=== PATIENT | female | born 1940 | race Caucasian/White ===

== ENCOUNTER → 2017-08-04 15:14 | Outpatient (CLI) | payer MEDICARE, SELFPAY ==
--- NOTE | 2017-08-04 15:15 | RAD_ITS ---
STUDY: X-RAY - ABDOMEN/PELVIS REASON FOR EXAM: Female, 77 years old. Pain TECHNIQUE: AP supine and upright views of the abdomen and pelvis. COMPARISON: None. FINDINGS: Normal visualized lung bases. There is an unremarkable bowel gas pattern. There is no demonstrated free abdominal air. The visualized liver, spleen and kidneys are grossly normal in size and morphology. Normal soft tissue structures. There are diffuse degenerative changes of the visualized lumbar spine. Pelvic phleboliths. RAD/Abd Inc Decub and/or Erect IMPRESSION: Nonobstructive bowel gas pattern. Electronically Signed: Andres Tanner MD at 9:21 EDT Tel , Service support ,
== END ==
PROVIDERS: Family Provider Family Medicine; PCP Family Medicine; Visit Provider Family Medicine
DX: R14.0 Abdominal distension (gaseous) (principal)
CPT/HCPCS: 74019

== ENCOUNTER → 2017-09-01 14:07 | Outpatient (CLI) | payer SELFPAY ==
--- NOTE | 2017-09-01 14:18 | RAD_ITS ---
STUDY: X-RAY - RIGHT SHOULDER REASON FOR EXAM: Female, 77 years old. Right shoulder pain, strain during bowling TECHNIQUE: 4 view(s) of the shoulder. COMPARISON: None. FINDINGS: There is mild degenerative arthrosis of the glenohumeral articulation. There is degenerative arthrosis of the acromioclavicular joint without inferior osseous spur formation. Normal acromion. Normal humeral head and visualized proximal humerus. The soft tissue structures are unremarkable. Normal visualized pulmonary apex. RAD/Shoulder min 2 Views IMPRESSION: Mild degenerative changes. Electronically Signed: Carissa Connor MD at 3:54 EDT , Service support ,
== END ==
PROVIDERS: Family Provider Family Medicine; PCP Family Medicine; Visit Provider Family Medicine
DX: M19.011 Primary osteoarthritis, right shoulder (principal)
CPT/HCPCS: 73030

== ENCOUNTER → 2018-01-13 16:10 | Outpatient (CLI) | payer MEDICARE, SELFPAY | PROVIDERS: Family Provider Family Medicine; PCP Family Medicine; Visit Provider Family Medicine | DX: R53.83 Other fatigue (principal) | CPT/HCPCS: 36415 ==

== ENCOUNTER → 2018-02-17 17:28 | Outpatient (CLI) | payer SELFPAY ==
--- NOTE | 2018-02-17 17:38 | RAD_ITS ---
STUDY: X-RAY - RIGHT SHOULDER REASON FOR EXAM: Female, 78 years old. Right shoulder pain x2 weeks TECHNIQUE: 4 view(s) of the shoulder. COMPARISON: None. FINDINGS: Normal glenohumeral articulation. There is degenerative arthrosis of the acromioclavicular joint without inferior osseous spur formation. Normal acromion. Normal humeral head and visualized proximal humerus. The soft tissue structures are unremarkable. Normal visualized pulmonary apex. RAD/Shoulder min 2 Views IMPRESSION: Mild degenerative change of AC joint Electronically Signed: Frank James DO at 16:52 EDT Tel , Service support ,
== END ==
PROVIDERS: Family Provider Family Medicine; PCP Family Medicine; Referring Provider Family Medicine; Visit Provider Family Medicine
DX: M19.011 Primary osteoarthritis, right shoulder (principal)
CPT/HCPCS: 73030

== ENCOUNTER → 2018-03-28 16:56 | Outpatient (CLI) | payer MEDICARE, SELFPAY ==
--- NOTE | 2018-03-28 16:58 | RAD_ITS ---
STUDY: X-RAY - RIGHT KNEE REASON FOR EXAM: Female, 78 years old. Pain. TECHNIQUE: 4 view(s) of the knee. COMPARISON: None. FINDINGS: Normal visualized distal femur. Normal visualized proximal tibia and fibula. Normal proximal tibiofibular articulation. There is no demonstrated fracture. Normal medial femorotibial compartment. Normal lateral femorotibial compartment. Normal patellofemoral articulation. There is no demonstrated joint effusion. The soft tissue structures are unremarkable. RAD/Knee 4 or More Views IMPRESSION: Normal x-ray examination of the knee. Electronically Signed: Tee Medley MD at 19:04 EST , Service support ,
== END ==
PROVIDERS: Family Provider Family Medicine; PCP Family Medicine; Referring Provider Family Medicine; Visit Provider Family Medicine
DX: S83.91XA Sprain of unspecified site of right knee, initial encounter (principal)
CPT/HCPCS: 73564

== ENCOUNTER → 2018-04-07 16:54 | Outpatient (CLI) | payer MEDICARE, SELFPAY ==
--- NOTE | 2018-04-07 17:15 | MRI_ITS ---
STUDY: MRI RIGHT KNEE REASON FOR EXAM: Female, 78 years old. Right knee pain for 3 weeks. TECHNIQUE: Standardized fat and water weighted pulse sequences were obtained in all 3 orthogonal planes. COMPARISON: X-rays of the right knee dated March 28, 2018. FINDINGS: There is a complex tear posterior horn of the medial meniscus extending into the body. There is moderate thinning of the articular cartilage of the medial femorotibial compartment (coronal series 7 images 10-17). Normal hyaline cartilage of the medial femorotibial compartment. Normal medial femoral condyle and tibial plateau. Normal medial collateral ligamentous complex (MCL). Normal distal semimembranosus, gracilis and semitendinosus tendons. Normal lateral meniscus. There is mild thinning of the articular cartilage of the lateral femorotibial compartment (coronal series 7 images 12-18). Normal lateral femoral condyle and tibial plateau. Normal proximal tibiofibular articulation. Normal lateral collateral (fibular) ligament. Normal popliteus tendon. Normal biceps femoris tendon. Normal anterior cruciate ligament (ACL). Normal posterior cruciate ligament (PCL). Normal congruent patellofemoral articulation. There is moderate thinning of the articular cartilage of the patellofemoral compartment (axial series 3 images 7-14). Normal medial and lateral patellar retinaculum. Normal quadriceps tendon. Normal patellar tendon. Normal Hoffa's fat pad. There is a small joint effusion (axial series 3 image 12). The soft tissues are unremarkable. The otherwise visualized osseous structures are unremarkable. MRI/Lower Ext Joint Only (Routine) IMPRESSION: Complex tear of the posterior horn of the medial meniscus extending into the body. Moderate thinning of the articular cartilage of the medial and patellofemoral compartments. Mild thinning of the articular cartilage of the lateral femorotibial compartment. Small joint effusion. Electronically Signed: Hong Galo MD at 15:33 EST , Service support ,
== END ==
PROVIDERS: Family Provider Family Medicine; PCP Family Medicine; Referring Provider Family Medicine; Visit Provider Family Medicine
DX: M25.561 Pain in right knee (principal)
CPT/HCPCS: 73721

== ENCOUNTER → 2018-06-29 10:17 | Outpatient (CLI) | payer MEDICARE, SELFPAY ==
[2018-06-10 10:26] VITALS: BMI 23.8
--- NOTE | 2018-06-29 10:22 | RAD_ITS ---
STUDY: X-RAY CHEST REASON FOR EXAM: Female, 78 years old. Cough. TECHNIQUE: PA and lateral views of the chest. COMPARISON: Prior comparison studies are not available for review at this time. FINDINGS: There is mild hyperinflation of the lungs consistent with mild chronic obstructive lung disease (COPD). There is no demonstrated pleural abnormality. Normal size heart. Normal mediastinum and josh. Normal visualized pulmonary arteries. Normal visualized aortic arch and descending thoracic aorta. There are mild degenerative changes of the visualized thoracic spine. Normal visualized ribs, clavicles, and shoulders. There is no demonstrated abnormality of the visualized soft tissue structures of the upper abdomen. RAD/Chest PA and Lateral IMPRESSION: No active pulmonary disease. Electronically Signed: Butch Hager MD at 9:58 EST Tel , Service support ,
[2018-06-29 12:01] LABS: Absolute Lymphocyte Count 2.13 X10^3/ul (0.83-4.51); Absolute Neutrophil Count 3.1 X10^3/uL (2.0-7.7); Basophil# 0.04 X10^3/uL; Basophil% 0.6 % (0-1); Eosinophil# 0.36 X10^3/uL; Eosinophils% 5.7 % (0-5); Hematocrit 38.3 % (37-47); Hemoglobin 12.4 g/dl (12.0-15.0); Lymphocyte # 2.13 X10^3/ul (4.0); Lymphocyte % 33.8 % (19-41); Mean Corp Hgb Conc 32.4 g/gl (32-36); Mean Corpuscular Hgb 28.2 pg (27.0-32.0); Mean Platelet Vol. 9.6 fl (6.2-12.0); Monocyte# 0.69 X10^3/uL; Neutrophil # 3.07 X10^3/uL (2.7-7.7); Neutrophil % 48.7 % (47-70); POSITIVE COUNT NO; POSITIVE DIFFERENTIAL NO; POSITIVE MORPHOLOGY NO; Platelet Count 295 K/mm3 (150-450); RBC Distribution Width CV 13.5 % (11.6-14.6); RBC Distribution Width SD 43.4 fl (35.1-43.9); White Blood Count 6.3 K/mm3 (4.4-11.0)
== END ==
PROVIDERS: Family Provider Family Medicine; PCP Family Medicine; Referring Provider Family Medicine; Visit Provider Family Medicine
DX: R05 Cough (principal)
CPT/HCPCS: 36415; 71046; 85025

== ENCOUNTER → 2018-12-30 16:35 | Outpatient (CLI) | payer MEDICARE, SELFPAY ==
[2018-07-15 10:43] VITALS: BMI 23.8
--- NOTE | 2018-12-30 16:41 | RAD_ITS ---
STUDY: X-RAY - LUMBAR SPINE REASON FOR EXAM: Female, 78 years old. Pain, hip pain TECHNIQUE: 5 view(s) of the lumbar spine were obtained. COMPARISON: None FINDINGS: Normal lumbar lordosis. There is levoscoliosis of the lumbar spine. There is multilevel degenerative change. There is slight anterolisthesis at L4-L5. There is multilevel endplate spondylosis of the lumbar vertebrae. There is multi-level degenerative disc disease with multi-level disc space narrowing. There are phleboliths in the pelvis. RAD/L/S Spine Min 4 Views IMPRESSION: Degenerative changes of the lumbar spine. Levoscoliosis. No visualized evidence of acute loss of height or alignment. Electronically Signed: Khalida Collier MD at 18:38 EDT Tel , Service support ,
== END ==
PROVIDERS: Family Provider Family Medicine; PCP Family Medicine; Referring Provider Family Medicine; Visit Provider Family Medicine
DX: M43.16 Spondylolisthesis, lumbar region (principal); M51.36 Other intervertebral disc degeneration, lumbar region; M48.061 Spinal stenosis, lumbar region without neurogenic claudication
CPT/HCPCS: 72110

== ENCOUNTER → 2019-03-10 10:35 | Outpatient (CLI) | payer MEDICARE, SELFPAY ==
[2018-07-15 10:43] VITALS: BMI 23.8
[2019-03-10 13:10] LABS: Anion Gap 6 (5-15); BUN 21 mg/dL (7-18); BUN/Creat Ratio 17.5 RATIO (10-20); Chloride 103 mmol/L (98-107); Cholesterol 184 mg/dL (200); EST Glomerular Filtration Rate 46 mL/min (>60); Est Glom Filt Rate - Afr Amer 56 mL/min (>60); Glucose 92 mg/dL (74-106); High Density Lipoprotein 73 mg/dL; Potassium 3.8 mmol/L (3.5-5.1); Sodium Level 139 mmol/L (136-145); Triglycerides 89 mg/dL; Very Low Density Lipoprotein 18 mg/dL (5-40)
== END ==
PROVIDERS: Family Provider Family Medicine; PCP Family Medicine; Referring Provider Family Medicine; Visit Provider Family Medicine
DX: I10 Essential (primary) hypertension (principal)
CPT/HCPCS: 36415; 80048; 80061

== ENCOUNTER 2019-04-17 13:30 | Outpatient (RCR) | payer MEDICARE, SELFPAY ==
[2018-07-15 10:43] VITALS: BMI 23.8
--- NOTE | 2019-03-23 11:01 | HP.PTEVAL_ITS ---
Patient's Visit Information RADHA MALCOLM is a 79 year old F referred to Physical Therapy by Franklin Díaz MD with a diagnosis of BACK PAIN. Date of Evaluation: 03/23/19 Physical Therapist: Jen Chen PT, Cert MDT - Visit Plan Frequency: 2-3x /Week Duration: 4-6 Weeks Plan: AQUATIC THERAPY FOR PAIN RELEIF, POSTURE CORRECTION/STRENGTHENING, INSTRUCTION IN APPROPRIATE BODY MECHANICS AND ACTIVITY MODIFICATIONS. DLS STARTING WITH A NEUTRAL SPINE PROGRESSING ROM TOLERATED. EBONIE LE ROM, STRETCHING AND STRENGTHENING. HEP INSTRUCTION. - Subjective Findings: Work/Leisure: RETIRED. LIKES TO DANCE. DANCED AT [employer] LAST WEEK (AND KNEE WAS OK). ALSO LIKES TO PLAY TENNIS BUT HASN'T PLAYED THIS YEAR. LIKES TO WALK FOR EX BUT CAN'T NOW. Present symptoms: LOW BACK PAIN AND LEFT HIP PAIN. WHOLE RIGHT LEG HAS STARTED TO FEEL NUMB - A SENSATION THAT IS DIFFERENT. ACTUALLY HAVING SOME NUMBNESS AND TINGLING IN BOTH LE'S TO FEET. Present since: 6-8 MONTHS. Pain Scale: WORST 6/10, LEAST 0/10. Currently: 06/02. Commenced as a result of: NO APPARENT REASON. Symptoms at onset: LEFT LOW BACK. Worse: WALKING, STANDING, ANY KIND OF EX, CLEANING, VACUUMING, DUSTING. IF I AM NOT SITTING I AM IN PAIN. Better: SITTING. ALEVE. Disturbed sleep: NO. Previous history/Previous treatment: MIGHT HAVE HAD PT FOR RIGHT LOW BACK PAIN A LONG TIME AGO BUT OTHERWISE UNREMARKABLE. THIS EPISOD E HAD AN OLIVIA ABOUT A MONTH A GO THAT MIGHT HAVE HELPED BRIEFLY BUT IT DIDN'T LAST. NO BACK SURGERY. Coughing/sneezing/straining: NEGATIVE. Gait: PAIN LIMITED. NO AD'S. Difficulty initiating urinatin: NO. Accidents: NO. Unexplained weight loss: NO. Imaging: LUMBAR X-RAY - DDD PER PATIENT REPORT. PMH: OSTEOPOROSIS, ASTHMA, H/O RIGHT KNEE PAIN, ANXIETY, HTN, SLEEP MEDICINE. - Objective Sitting/Standing Posture: POOR. Lordosis: REDUCED. Active Correction of posture: WORSE. Other Observations: INDEP GAIT INTO PT WITH NO AD'S, MILD INCREASED TRUNK FLEXION AND DECREASED CADANCE. Motor deficit: EBONIE LE WEAKNESS: EBONIE HIPS 3+/5 AND PAIN LIMITED. RIGHT KNEE EXT 4-/5, KNEE FLEX 4/5, ANKLE 5/5. LEFT KNEE EXT 4-/5, KNEE FLEX 4/5, ANKLE 5/5. Sensory deficit: WITH TESTING TODAY THE LEFT LE LIGHT TOUCH SENSATION IS DECREASED COMPARED TO THE RIGHT. ROM deficit: EBONIE LE'S WFL. Reflexes: EBONIE LE'S 1/2 EBONIE. Dural Signs: POSITIVE EBONIE LE'S. Lumbar mvmt loss: flex - MOD. ext - VARSHA. R SG - VARSHA. L SG - VARSHA. PATIENT C/O INCREASED PAIN WITH LUMBAR ROM TESTING ALL PLANES ESPECIALLY RIGHT SG TESTING. Core strength: POOR. Palpation: MILD TENDERNESS WITH PALPATION OF THE LEFT PARASPINAL REGION. - Goals Goal 1:: DECREASE C/O LOW BACK AND LEFT HIP PAIN. Goal Time Frame: 4-6 Weeks Goal 2:: IMPROVE PERSONAL CARE, LIFTING, WALKING, STANDING, SOCIAL LIFE, TRAVEL AND HOMEMAKING FUNCTION. Goal Time Frame: 4-6 Weeks Goal 3:: INSTRUCT IN PROPHYLAXIS Goal Time Frame: 4-6 Weeks - Rehabilitation Potential Rehabilitation Potential: Fair - Anticipated Interventions Patient/Client Instruction: Educate patient on: Condition, Plan of Care, Risk Factors, Benefits of Fitness Program For the Purpose of:: To improve self management Therapeutic Exercise to Include: Strength training, Endurance training, Body mechanics, Postural training, Flexibilty training, In an aquatic setting, Dynamic Lumbar Stabilization For the Purpose of:: To decrease pain, To increase ROM, To improve muscle performance and motor function, To increase tolerance to activity/condition/position, To improve ability of physical actions for home/community/work/leisure, To improve gait and locomotor functions Thank you for the opportunity to evaluate your patient. For Medicare and Medicare HMO plans, please review the plan of care and approve it. It will need to be FAXED BACK to us at [phone] for Medicare purposes. For Medicare only, by signing this I certify the plan of care. Please let me know if there are questions or concerns regarding this plan of care. Physician Signature: Date:
--- NOTE | 2019-05-19 16:26 | HP.PTDCNRP_ITS ---
HP - Discharge Summary (1) - Patient Information RADHA MALCOLM was seen in my office for initial evaluation on 03/23/19. The following Plan of Care was established for this patient: Initial Frequency: 2-3x /Week Initial Duration: 4-6 Weeks - Anticipated Interventions Patient/Client Instruction: Educate patient on: Condition, Plan of Care, Risk Factors, Benefits of Fitness Program For the Purpose of:: To improve self management Therapeutic Exercise to Include: Strength training, Endurance training, Body mechanics, Postural training, Flexibilty training, In an aquatic setting, D ynamic Lumbar Stabilization For the Purpose of:: To decrease pain, To increase ROM, To improve muscle performance and motor function, To increase tolerance to activity/conditi on/position, To improve ability of physical actions for home/community/work/leisure, To improve gait and locomotor functions This patient was last seen in our office 04/17/19. Pertinent comments regarding their Physical therapy will appear below: This patient has not returned to Physical Therapy and is appropriate to return to MD for further follow-up as needed. At this point I will be discontinuing this patient from physical therapy. I would be happy to see this patient again in the future if found appropriate by the physician. Thank you! Jen Chen, PT, Cert MDT
== END 2019-04-17 19:00 | disposition home or self-care (01) ==
LOC: PT 13:30
PROVIDERS: Family Provider Family Medicine; PCP Family Medicine; Referring Provider Family Medicine; Visit Provider Family Medicine
DX: M54.9 Dorsalgia, unspecified (principal)
CPT/HCPCS: 97113; 97162; 97530

== ENCOUNTER → 2019-04-18 16:55 | Outpatient (CLI) | payer MEDICARE, SELFPAY ==
[2018-07-15 10:43] VITALS: BMI 23.8
--- NOTE | 2019-04-18 17:30 | MRI_ITS ---
STUDY: MRI LUMBAR SPINE WITHOUT CONTRAST REASON FOR EXAM: Female, 79 years old. Low back pain. Left hip and buttock pain. Right leg numbness and tingling. TECHNIQUE: Standardized fat and water weighted pulse sequences were obtained in the sagittal and axial planes. COMPARISON: Lumbar spine radiographs 12/30/2018. FINDINGS: No fracture or acute signal changes in the vertebrae, discs, or ligaments. Alignment unchanged with moderate to severe left scoliosis centered at L3, and mild right lateral offset of L1 on L2 and L2 on L3, and mild left lateral offset of L4 on L5 secondary to this scoliotic curvature. Mild, 2 mm, degenerative retrolisthesis of T12 on L1, L1 on L2, and L3 on L4, and mild to millimeter degenerative anterolisthesis of L4 and L5 also similar to previous. Conus terminates at the level of the L1 inferior endplate with normal contour and signal. The thecal sac terminates at the mid S2 level. Diffuse loss of disc space height, disc desiccation, with mild degenerative endplate signal changes and irregularity, most prominent at T12-L1, L1-2, and L3-4. The paraspinal soft tissues are unremarkable. At L1-2, diffuse disc bulge, moderate bilateral facet degeneration, and mild degenerative retrolisthesis cause only mild narrowing of the spinal canal and foramina with no evidence of nerve impingement. At L2-3, larger diffuse disc bulge, mild degenerative listhesis, scoliotic curvature and marked bilateral facet degeneration cause mild narrowing of the bilateral subarticular zones, moderate right and mild left foraminal narrowing. There is mild mass effect upon the exiting right L2 nerve root in the right foramen, and mild mass effect upon the traversing bilateral L3 nerve roots in the subarticular zones. At L3-4, diffuse disc bulge and moderate bilateral facet degeneration with underlying vertebral body and facet osteophytes combine with mild listhesis, and scoliotic curvature to cause mild narrowing of the spinal canal, moderate right and mild left foraminal narrowing. Osteophytes abut but do not compress the exiting right L3 nerve root in the right foramen. At L4-5, degenerative anterolisthesis with unroofing of the disc, scoliotic curvature, and marked bilateral facet degeneration cause focal moderate to severe spinal canal narrowing, particularly of the subarticular zones, with crowding of the cauda equina and moderate effacement of CSF. There is likely compression of the traversing bilateral L5 nerve roots in the subarticular zones. Only mild bilateral foraminal narrowing. At L5-S1, diffuse disc bulge with underlying osteophytes, and marked left and moderate right foraminal narrowing cause moderate right and high-grade left subarticular zone narrowing, with mass effect upon the traversing left greater than right S1 nerve roots. Mild right and moderate left foraminal narrowing. Disc and osteophytes mildly displace the exiting left L5 nerve root in the left foramen. The visualized sacrum is unremarkable. MRI/Spine Lumbar (Routine) IMPRESSION: The most likely etiology for radiculopathy is the L4-5 level where there is moderate to severe narrowing of the spinal canal and probable compression of the traversing bilateral L5 nerve roots in the subarticular zones. Prominent degenerative changes at other levels, described in detail above, with underlying moderate to severe left scoliosis centered at L3. Electronically Signed: Kirill Banuelos, at 3:42 EST Tel , Service support ,
== END ==
PROVIDERS: Family Provider Family Medicine; PCP Family Medicine; Referring Provider Anesthesiology Pain Medicine; Visit Provider Anesthesiology Pain Medicine
DX: M51.37 Other intervertebral disc degeneration, lumbosacral region (principal); M54.17 Radiculopathy, lumbosacral region
CPT/HCPCS: 72148

== ENCOUNTER → 2019-07-20 14:30 | Outpatient (CLI) | payer MEDICARE, SELFPAY ==
[2018-07-15 10:43] VITALS: BMI 23.8
[2019-07-20 16:06] LABS: Absolute Lymphocyte Count 2.35 X10^3/uL (0.83-4.51); Absolute Neutrophil Count 3.4 X10^3/uL (2.0-7.7); Basophil# 0.08 X10^3/uL; Basophil% 1.2 % (0-1); Eosinophil# 0.45 X10^3/uL; Eosinophils% 6.5 % (0-5); Hematocrit 38.3 % (37-47); Hemoglobin 12.2 g/dL (12.0-15.0); Lymphocyte # 2.35 X10^3/ul (4.0); Lymphocyte % 33.9 % (19-41); Mean Corp Hgb Conc 31.9 g/dL (32-36); Mean Corpuscular Hgb 27.6 pg (27.0-32.0); Mean Corpuscular Volume 86.7 fL (81-99); Mean Platelet Vol. 9.7 fl (6.2-12.0); Monocyte# 0.63 X10^3/uL; Monocyte% 9.1 % (0-10); NRBC Flagged by Analyzer 0 % (0-5); Platelet Count 339 K/mm3 (150-450); RBC Distribution Width CV 13.6 % (11.6-14.6); RBC Distribution Width SD 42.5 fl (35.1-43.9); Red Blood Count 4.42 M/mm3 (4.2-5.4); White Blood Count 6.9 K/mm3 (4.4-11.0)
[2019-07-20 16:35] LABS: Thyroid Stim Hormone (TSH) 1.71 uIU/mL (0.358-3.74)
[2019-07-24 16:08] LABS: Albumin 3.8 g/dL (2.9-4.4); Alpha-1-Globulins 0.2 g/dL (0.0-0.4); Alpha-2-Globulins 0.8 g/dL (0.4-1.0); Gamma Globulin 0.8 g/dL (0.4-1.8); Immunoglobulin A 274 mg/dL (64-422); Immunoglobulin G 965 mg/dL (700-1600); Immunoglobulin M 79 mg/dL (26-217); PROEL- TOTAL PROTEIN 6.9 g/dL (6.0-8.5)
== END ==
PROVIDERS: PCP Family Medicine; Referring Provider Family Medicine; Visit Provider Family Medicine
DX: R53.83 Other fatigue (principal)
CPT/HCPCS: 36415; 82784; 84165; 84443; 85025; 86334

== ENCOUNTER 2019-07-28 09:30 | Outpatient (RCR) | payer MEDICARE, SELFPAY ==
[2018-07-15 10:43] VITALS: BMI 23.8
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
== END 2019-07-28 19:00 | disposition home or self-care (01) ==
LOC: PT 09:30
PROVIDERS: PCP Family Medicine; Referring Provider Family Medicine; Visit Provider Family Medicine
DX: M54.9 Dorsalgia, unspecified (principal)
CPT/HCPCS: 97112; 97162

== ENCOUNTER → 2020-01-23 12:37 | Outpatient (CLI) | payer MEDICARE, SELFPAY ==
[2018-07-15 10:43] VITALS: BMI 23.8
[2020-01-23 15:52] LABS: Absolute Lymphocyte Count 2.77 X10^3/uL (0.83-4.51); Absolute Neutrophil Count 3.5 X10^3/uL (2.0-7.7); Basophil# 0.07 X10^3/uL; Basophil% 0.9 % (0-1); Eosinophils% 5.4 % (0-5); Hematocrit 37.2 % (37-47); Hemoglobin 12.2 g/dL (12.0-15.0); Lymphocyte # 2.77 X10^3/ul (4.0); Lymphocyte % 37.3 % (19-41); Mean Corp Hgb Conc 32.8 g/dL (32-36); Mean Corpuscular Hgb 29.6 pg (27.0-32.0); Mean Corpuscular Volume 90.3 fL (81-99); Monocyte# 0.69 X10^3/uL; Monocyte% 9.3 % (0-10); NRBC Flagged by Analyzer 0 % (0-5); Neutrophil # 3.47 X10^3/uL (2.7-7.7); Neutrophil % 46.7 % (47-70); Platelet Count 356 K/mm3 (150-450); RBC Distribution Width CV 14.3 % (11.6-14.6); RBC Distribution Width SD 46.1 fl (35.1-43.9); Red Blood Count 4.12 M/mm3 (4.2-5.4); White Blood Count 7.4 K/mm3 (4.4-11.0)
== END ==
PROVIDERS: PCP Family Medicine; Referring Provider Internal Medicine Pulmonary Disease; Visit Provider Internal Medicine Pulmonary Disease
DX: J45.909 Unspecified asthma, uncomplicated (principal)
CPT/HCPCS: 36415; 85025

== ENCOUNTER 2021-06-20 14:43 | Outpatient (CLI) | payer MEDICARE, BC, SELFPAY ==
[2021-06-20 17:51] LABS: Absolute Lymphocyte Count 2.23 X10^3/uL (0.83-4.51); Absolute Neutrophil Count 3.5 X10^3/uL (2.0-7.7); Basophil# 0.08 X10^3/uL; Basophil% 1.2 % (0-1); Eosinophil# 0.37 X10^3/uL; Eosinophils% 5.4 % (0-5); Hematocrit 34.8 % (37-47); Hemoglobin 11.3 g/dL (12.0-15.0); Lymphocyte # 2.23 X10^3/ul (0.83-4.51); Lymphocyte % 32.7 % (19-41); Mean Corp Hgb Conc 32.5 g/dL (32-36); Mean Corpuscular Hgb 27.4 pg (27.0-32.0); Mean Corpuscular Volume 84.5 fL (81-99); Monocyte# 0.65 X10^3/uL; Monocyte% 9.5 % (0-10); NRBC Flagged by Analyzer 0 % (0-5); Neutrophil # 3.49 X10^3/uL (2.7-7.7); Neutrophil % 51.1 % (47-70); Platelet Count 363 K/mm3 (150-450); RBC Distribution Width CV 14.6 % (11.6-14.6); Red Blood Count 4.12 M/mm3 (4.2-5.4); White Blood Count 6.8 K/mm3 (4.4-11.0)
[2021-06-20 18:15] LABS: Anion Gap 6 (5-15); BUN 18 mg/dL (7-18); BUN/Creat Ratio 14.1 RATIO (10-20); Calcium,Total 9.1 mg/dL (8.5-10.1); Chloride 106 mmol/L (98-107); Creatinine, Serum 1.28 mg/dL (0.55-1.02); EST Glomerular Filtration Rate 43 mL/min (>60); Est Glom Filt Rate - Afr Amer 52 mL/min (>60); Glucose 88 mg/dL (74-106); Potassium 3.6 mmol/L (3.5-5.1); Sodium Level 139 mmol/L (136-145); Thyroid Stim Hormone (TSH) 1.94 uIU/mL (0.358-3.74)
== END 2021-06-20 23:59 | disposition short-term general hospital (02) ==
PROVIDERS: PCP Family Medicine; Referring Provider Family Medicine; Visit Provider Family Medicine
DX: R42 Dizziness and giddiness (principal)
CPT/HCPCS: 36415; 80048; 84443; 85025

== ENCOUNTER 2022-03-12 14:35 | Inpatient (IN) | payer MEDICARE, BC, SELFPAY ==
[2022-03-12] VITALS (8 sets, daily range): BP systolic 107–168; BP diastolic 76–94; PULSE 83–104; RESP 15–22; TEMP 36.2–36.7; O2SAT 95–98; BMI 29.1; BMI 28.8
--- NOTE | 2022-03-12 15:11 | CT_ITS ---
STUDY: CT BRAIN WITHOUT CONTRAST REASON FOR EXAM: Female, 82 years old. Altered mental status, generalized weakness RADIATION DOSAGE (If Supplied By Facility): CTDIvol = ( 44.99 ) mGy, DLP = ( 812.98 ) mGycm TECHNIQUE: Transaxial CT imaging of the brain was performed without administration of intravenous contrast material. Individualized dose optimization techniques were used for this CT. COMPARISON: 2015 FINDINGS: Normal soft tissue structures. Normal calvarium. There is moderate cerebral atrophy with widening of the extra-axial spaces and ventricular dilatation. There are areas of decreased attenuation within the white matter tracts of the supratentorial brain, consistent with microvascular disease changes. There are small punctate calcifications of the basal ganglia which are seen in the aging brain as a normal variant. Normal brainstem. There is mild cerebellar atrophy. There is no intracranial hemorrhage. There are no findings of an acute ischemic infarction. Normal visualized paranasal sinuses. CT/Brain/Head without Contrast IMPRESSION: Chronic involutional changes of the brain. No acute hemorrhage Electronically Signed: Yusuf Helton MD at 16:05 EDT ,
--- NOTE | 2022-03-12 15:19 | EX.ED.DYSGE1 ---
HPI History of Present Illness Chief Complaint: Weakness Informant: patient and spouse/S.O. Narrative Narrative: Patient is an 82-year-old female with history of dementia, anxiety and hypertension presenting with lightheadedness and an episode of unsteady gait and slurred speech. states he came home and patient told him that she fell asleep while eating breakfast this morning. He noticed that he had she had a couple seconds of slurred speech and was stumbling. This was around 1 or 115. The symptoms since resolved. Patient notes that she has been more tired and just not feeling good today which is why she agreed to come to the emergency room. called their primary care doctor who and spoke to the on-call nurse who recommend they come to the ER. Patient denies any falls. She notes that she does not feel sure on her feet and feels lightheaded. She states she feels out of it. She notes she has been intermittently dizzy for weeks. She states is more of a room spinning sensation. states sometimes she seems like she is going to fall backwards but she has not fallen. For the past 2-week she is also been having heartburn every evening and patient states today she had an episode of chest pain in the center of her chest with no radiation. This lasted for 20 to 30 seconds. Patient denies any fever, chills, vision changes, shortness of breath, nausea, vomiting or urinary symptoms. She notes she did have diarrhea this morning. She denies any black or blood in her stool. No other complaints at this time. Patient was recently switched on to quetiapine to help with anxiety and sleep. This was 2 to 3 days ago. Before that she was on hydroxyzine. [facility] Medical History Anxiety Asthma Chronic pain Depression Hearing loss, left Hearing loss, right Hepatitis History of frequent urinary tract infections Hyperlipidemia Hypertension Non-smoker Osteoporosis Home Medications hydrochlorothiazide 12.5 mg capsule 12.5 mg PO DAILY BLOOD PRESSURE 06/10/18 [History Last Taken 03/12/22] acetaminophen 325 mg tablet 325 mg PO DAILY PRN PRN Pain 03/12/22 [History Last Taken 03/12/22] aspirin 325 mg tablet 325 mg PO DAILY PRN PRN Pain 03/12/22 [History Last Taken 03/12/22] bupropion HCl 300 mg 24 hr tablet, extended release 300 mg PO BID 03/12/22 [History Last Taken 03/12/22] [id number]-[id number]-nctq-minerals 27 mg-0.4 mg tablet 1 tab PO DAILY SUPPLEMENT 03/12/22 [History Last Taken 03/11/22] quetiapine 50 mg tablet 50 mg PO QHS SLEEP 03/12/22 [History Last Taken 03/11/22] Allergy/AdvReac Type Severity Reaction Status Date / Time alendronate sodium Allergy GI UPSET Verified 03/12/22 14:36 [From Fosamax] amoxicillin [From Augmentin] Allergy MADE MOUTH Verified 03/12/22 14:36 VERY TENDER clavulanic acid Allergy MADE MOUTH Verified 03/12/22 14:36 [From Augmentin] VERY TENDER escitalopram [From Lexapro] Allergy DECREASED Verified 03/12/22 14:36 LIBIDO, SEXUAL DYSFUNCTION fluoxetine [From Prozac] Allergy SEXUAL Verified 03/12/22 14:36 DYSFUNCTION latex Allergy Rash Verified 03/12/22 14:36 lisinopril Allergy COUGH Verified 03/12/22 14:36 paroxetine [From Paxil] Allergy NUMB Verified 03/12/22 14:36 venlafaxine [From Effexor] Allergy BLOATING, Verified 03/12/22 14:36 SEXUAL DYSFUNCTION Surgical History History of appendectomy History of hysterectomy History of tonsillectomy Social History Smoking Status: Never smoker ROS ROS ED Constitutional Constitutional ED: Denies chills or fever(s) Eyes Eyes: Denies blurry vision or change in vision ENT ENT ED: Denies ear pain, rhinorrhea or sore throat Cardiovascular Cardiovascular: Reports chest pain; Denies palpitations or racing heartbeat Respiratory/Chest Respiratory/Chest: Denies cough, dyspnea or dyspnea on exertion Gastrointestinal Gastrointestinal: Reports diarrhea; Denies abdominal pain, melena, nausea or vomiting Genitourinary Genitourinary ED: Denies dysuria or hematuria Musculoskeletal Musculoskeletal: Denies arthralgias or myalgias Integumentary Denies rash Neurologic Neurologic: Reports other Details: Slurred speech, unsteady gait ; Denies headache(s), paresthesias or weakness Psychiatric Psychiatric: Reports anxiety; Denies depression Hematologic/Lymphatic Hematologic/Lymphatic: Denies easy bleeding or easy bruising EXAM Physical Exam Const Vital Signs: 03/12/22 14:36 03/12/22 15:25 03/12/22 15:28 Temperature 97.2 F L Temperature Source Temporal Pulse Rate 104 H 92 Pulse Rate [Lying] Pulse Rate [Sitting (for 1 minute prior to obtaining)] Pulse Rate [Standing (for 1 minute prior to obtaining)] Respiratory Rate 15 19 H Respiratory Effort Normal Respiratory Pattern Normal Blood Pressure 107/79 155/80 H Blood Pressure [Lying] Blood Pressure [Sitting (for 1 minute prior to obtaining)] Blood Pressure [Standing (for 1 minute prior to obtaining)] Blood Pressure Mean 88 105 Blood Pressure Mean [Lying] Blood Pressure Mean [Sitting (for 1 minute prior to obtaining)] Blood Pressure Mean [Standing (for 1 minute prior to obtaining)] Pulse Ox 97 98 Oxygen Delivery Method Room Air Room Air 03/12/22 15:31 03/12/22 17:00 Temperature Temperature Source Pulse Rate 85 Pulse Rate [Lying] 87 Pulse Rate [Sitting (for 1 minute prior to obtaining)] 92 Pulse Rate [Standing (for 1 minute prior to obtaining)] 103 H Respiratory Rate 16 Respiratory Effort Respiratory Pattern Blood Pressure 147/81 H Blood Pressure [Lying] 125/78 H Blood Pressure [Sitting (for 1 minute prior to obtaining)] 125/78 H Blood Pressure [Standing (for 1 minute prior to obtaining)] 150/76 H Blood Pressure Mean 103 Blood Pressure Mean [Lying] 93 Blood Pressure Mean [Sitting (for 1 minute prior to obtaining)] 93 Blood Pressure Mean [Standing (for 1 minute prior to obtaining)] 100 Pulse Ox 95 Oxygen Delivery Method Room Air Positive well nourished and well developed General Appearance ED: well developed and NAD HEENT Reports moist mucous membranes Negative for trauma Eyes PERRL and EOMs intact bilaterally Eyes Narrative: No nystagmus appreciated Neck supple and no JVD Chest Wall inspection of chest normal and palpation of chest normal Resp normal respiratory effort and clear to auscultation bilaterally Cardio regular rate, regular rhythm and no murmurs GI normal to inspection, nondistended, normoactive bowel sounds and non-tender Back/Spine no CVA tenderness Extremity normal to inspection General Extremety ED: Negative for edema or tenderness General Extremity: Negative for edema Neuro CN's II-XII intact bilaterally and no sensory deficits noted Neuro Narrative: Oriented x2 Normal [id number]. No truncal ataxia appreciated. Motor Exam: strength 5/5 throughout Psych mental status grossly normal Skin no rashes or lesions noted and no wounds MDM MDM MDM Narrative Medical decision making narrative: Patient evaluated for lightheadedness, intermittent episodes of weakness, dizziness and an episode of stumbling/slurring her speech earlier today. Patient currently has no acute neurologic deficits. Her initial NIH is 1 however this is her baseline secondary to her dementia for level of consciousness. Patient's lab work does show anemia with a hemoglobin of 6.9. No signs of active bleeding and no blood on rectal exam. Her creatinine is 1.24 which is at her baseline. CT the brain does not show any acute process. Chest x-ray interpreted by myself as well as radiology does not show any acute process. Patient's urinalysis shows 500 leukoesterase but 0-5 white blood cells, rare bacteria and some epithelial cells. Given she does not have any urinary symptoms, fever or leukocytosis I do not think this is UTI. Culture sent but she is not treated at this time. Patient will be admitted for further evaluation of slurred speech including possible TIA as well as her acute anemia. She is agreeable to this plan of care. Given her acute anemia and possible bleeding even though I do not have a source that she is given 81 mg aspirin instead of a full dose aspirin. Lab Data Attestation: I reviewed the patient's lab results. Labs: Laboratory Results - last 24 hr 03/12/22 03/12/22 03/12/22 15:25 15:25 15:25 WBC 6.5 RBC 3.47 L Hgb 8.9 L Hct 28.6 L MCV 82.4 MCH 25.6 L MCHC 31.1 L RDW Std Deviation 48.8 H RDW Coeff of Roro 16.1 H Plt Count 360 MPV 9.1 Immature Gran % (Auto) 0.300 Neut % (Auto) 50.0 Lymph % (Auto) 32.7 [place] % (Auto) 9.6 Eos % (Auto) 6.5 H Baso % (Auto) 0.9 Absolute Neuts (auto) 3.2 Absolute Lymphs (auto) 2.11 Nucleated RBC % 0 PT 13.0 INR 1.0 Sodium 143 Potassium 3.5 Chloride 109 H Carbon Dioxide 27.0 Anion Gap 7 BUN 22 H Creatinine 1.24 H Estim Creat Clear Calc 35.50 Est GFR (MDRD) Af Amer 53 L Est GFR (MDRD) Non-Af 44 L BUN/Creatinine Ratio 17.7 Glucose 123 H Calcium 9.0 Total Bilirubin 0.20 AST 26 ALT 27 Alkaline Phosphatase 75 Troponin I High Sens 6 Total Protein 7.3 Albumin 3.5 Globulin 3.8 Albumin/Globulin Ratio 0.9 Lipase 247 Urine Color Urine Clarity Urine pH Ur Specific [place] Urine Protein Urine Glucose (UA) Urine Ketones Urine Occult Blood Urine Nitrite Urine Bilirubin Urine Urobilinogen Ur Leukocyte Esterase Urine RBC Urine WBC Ur Squamous Epith Cells Urine Bacteria Urine Mucus 03/12/22 16:20 WBC RBC Hgb Hct MCV MCH MCHC RDW Std Deviation RDW Coeff of [place]oro Plt Count MPV Immature Gran % (Auto) Neut % (Auto) Lymph % (Auto) [place] % (Auto) Eos % (Auto) Baso % (Auto) Absolute Neuts (auto) Absolute Lymphs (auto) Nucleated RBC % PT INR Sodium Potassium Chloride Carbon Dioxide Anion Gap BUN Creatinine Estim Creat Clear Calc Est GFR (MDRD) Af Amer Est GFR (MDRD) Non-Af BUN/Creatinine Ratio Glucose Calcium Total Bilirubin AST ALT Alkaline Phosphatase Troponin I High Sens Total Protein Albumin Globulin Albumin/Globulin Ratio Lipase Urine Color Straw Urine Clarity Clear Urine pH 7.0 Ur Specific [place] 1.010 Urine Protein Negative Urine Glucose (UA) Normal Urine Ketones Negative Urine Occult Blood 25 H Urine Nitrite Negative Urine Bilirubin Negative Urine Urobilinogen Normal Ur Leukocyte Esterase 500 H Urine RBC 0-5 SEEN Urine WBC 0-5 SEEN Ur Squamous Epith Cells 0-5 SEEN Urine Bacteria RARE Urine Mucus 0 SEEN Radiography Diagnostic Testing: Clinical Impression(s) from Imaging Studies Brain CT 03/12/22 15:11 IMPRESSION: Chronic involutional changes of the brain. No acute hemorrhage Electronically Signed: Yusuf Helton MD at 16:05 EDT Reading Location ID and State: [facility] / [place] , Service support , Chest X-Ray 03/12/22 15:50 IMPRESSION: No acute pulmonary process, no interval change Electronically Signed: Yusuf Helton MD at 16:04 EDT , Discharge Plan Dx/Rx/DC Orders Clinical Impression: TIA (transient ischemic attack), Anemia, Dizziness Disposition Disposition: Acute Care Hospital [facility] Discharge Date/Time: 03/12/22 19:12 NIHSS NIHSS 1a. Level of Consciousness: Alert; keenly responsive 1b. LOC Questions: Answers one question correctly. (Patient answered March onset of February for months. Has history of dementia and this is her baseline.) 1c. LOC Commands: Performs both tasks correctly. 2. Best Gaze: Normal 3. Visual: No visual loss 4. Facial Palsy: Normal symmetrical movements 5a. Left Arm: No drift; arm holds 90 (or 45) degrees for full 10 seconds 5b. Right Arm: No drift; arm holds 90 (or 45) degrees for full 10 seconds 6a. Left Leg: No drift; leg holds 30-degree position for full 5 seconds 6b. Right Leg: No drift; leg holds 30-degree position for full 5 seconds 7. Limb Ataxia: Absent 8. Sensory: Normal; no sensory loss 9. Best Language: No aphasia; normal 10. Dysarthria: Normal 11. Extinction and Inattention: No abnormality Total: 1
[2022-03-12 15:39] LABS: Absolute Lymphocyte Count 2.11 X10^3/uL (0.83-4.51); Absolute Neutrophil Count 3.2 X10^3/uL (2.0-7.7); Basophil# 0.06 X10^3/uL; Basophil% 0.9 % (0-1); Eosinophil# 0.42 X10^3/uL; Eosinophils% 6.5 % (0-5); Hematocrit 28.6 % (37-47); Hemoglobin 8.9 g/dL (12.0-15.0); Lymphocyte # 2.11 X10^3/ul (0.83-4.51); Lymphocyte % 32.7 % (19-41); Mean Corp Hgb Conc 31.1 g/dL (32-36); Mean Corpuscular Hgb 25.6 pg (27.0-32.0); Mean Corpuscular Volume 82.4 fL (81-99); Mean Platelet Vol. 9.1 fl (6.2-12.0); Monocyte# 0.62 X10^3/uL; Monocyte% 9.6 % (0-10); NRBC Flagged by Analyzer 0 % (0-5); Neutrophil # 3.22 X10^3/uL (2.7-7.7); Platelet Count 360 K/mm3 (150-450); RBC Distribution Width CV 16.1 % (11.6-14.6); RBC Distribution Width SD 48.8 fl (35.1-43.9); Red Blood Count 3.47 M/mm3 (4.2-5.4); White Blood Count 6.5 K/mm3 (4.4-11.0)
--- NOTE | 2022-03-12 15:50 | RAD_ITS ---
STUDY: X-RAY CHEST REASON FOR EXAM: Female, 82 years old. Atypical chest pain TECHNIQUE: PA and lateral views of the chest. COMPARISON: 06/29/18 FINDINGS: EKG leads overlie the chest The lungs are clear and expanded. There is no demonstrated pleural abnormality. Normal size heart. Normal mediastinum and josh. Normal visualized pulmonary arteries. Normal visualized aortic arch and descending thoracic aorta. There are diffuse degenerative changes of the visualized thoracic spine. Normal visualized ribs, clavicles, and shoulders. There is no demonstrated abnormality of the visualized soft tissue structures of the upper abdomen. RAD/Chest PA and Lateral IMPRESSION: No acute pulmonary process, no interval change Electronically Signed: Yusuf Helton MD at 16:04 EDT ,
[2022-03-12 15:59] LABS: ALB/GLOB Ratio 0.9 RATIO (0.9-2.4); AST(SGOT) 26 U/L (15-37); Alanine Aminotransfer ALT/SGPT 27 U/L (13-56); Albumin, Serum 3.5 g/dL (3.2-5.0); Alkaline Phosphatase 75 U/L (45-117); Anion Gap 7 (5-15); BUN 22 mg/dL (7-18); BUN/Creat Ratio 17.7 RATIO (10-20); Chloride 109 mmol/L (98-107); Creatinine, Serum 1.24 mg/dL (0.55-1.02); EST Glomerular Filtration Rate 44 mL/min (>60); Est Glom Filt Rate - Afr Amer 53 mL/min (>60); Globulin 3.8 g/dL (2.2-4.2); Glucose 123 mg/dL (74-106); Lipase 247 U/L (73-393); Potassium 3.5 mmol/L (3.5-5.1); Protein, Total 7.3 g/dL (6.4-8.2); Sodium Level 143 mmol/L (136-145); Troponin-I HS 6 pg/mL (3.0-54.0)
--- NOTE | 2022-03-12 16:30 | EKG12_ITS ---
Test Reason : HR Blood Pressure : / mmHG Vent. Rate : 085 BPM Atrial Rate : 085 BPM P-R Int : 164 ms QRS Dur : 070 ms QT Int : 378 ms P-R-T Axes : 040 006 013 degrees QTc Int : 449 ms Normal sinus rhythm Low voltage QRS Borderline ECG Confirmed by SAVAGE MCCAULEY, NATALY ([id number]), electronic news gathering editor TONE ESQUIVEL ([id number]) on 03/16/2022 9:45:16 AM Referred By: Confirmed By:NATALY WAN MD
[2022-03-12 16:41] LABS: Mucous, Urine 0 SEEN /hpf (<or=2+)
[2022-03-12 16:48] LABS: Color, Urine Straw (Yellow); Glucose, Dipstick Normal (Normal); Ketone-Dipstick Negative (Negative); Leukocyte Esterase-Dipstick 500 /ul (Negative); Nitrite-Dipstick Negative (Negative); Occult Blood-Urine 25 /ul (Negative); Protein-Dipstick Negative (Negative); Urine Bilirubin Dipstick Negative (Negative); Urine Clarity Clear (Clear); Urine Urobilinogen Normal (Normal)
[2022-03-12 16:58] LABS: Bacteria RARE /hpf (None Seen); Red Blood Cells-Urine 0-5 SEEN /hpf (0-5); Squamous Epithelial Cells - UA 0-5 SEEN /hpf (5-10); White Blood Cells 0-5 SEEN /hpf (0-5)
--- NOTE | 2022-03-12 18:13 | HP.PCM.HOS_ITS ---
HPI - General General Date of Admission: 03/12/22 Date of Service: 03/12/22 Chief Complaint: Slurred speech, dizziness and unsteady gait HPI Narrative RADHA MALCOLM, is a 82 F came to ED with her for slurred speech and episode of decreased responsiveness. As per the , she had dinner on the table and then she had garbled speech/slurred speech. At that time she also had short duration probably lasted in seconds to a minute of decreased responsiveness, lethargy and not responding appropriately. The patient did not pass out or loss of consciousness or seizure-like movement, confirmed from the patient's . Patient has chronic dizziness, vertigo/room spinning and an unsteady gait. She gets out of balance, rocking movement but does not favor any particular laterality. Patient has history of dementia and also poor sleep during night. She is also on quetiapine and bupropion. She does not sleep during daytime. Uses CPAP at night. In ED, twelve-lead EKG shows normal sinus rhythm, low voltage QRS complexes, 83 bpm. She denies burning micturition/increased frequency or urgency although she has history of UTI in the past. She is further admitted for work-up of TIA/stroke [facility] Medical History Anxiety Asthma Chronic pain Depression Hearing loss, left Hearing loss, right Hepatitis History of frequent urinary tract infections Hyperlipidemia Hypertension Non-smoker Osteoporosis Home Medications hydrochlorothiazide 12.5 mg capsule 12.5 mg PO DAILY BLOOD PRESSURE 06/10/18 [History Last Taken 03/12/22] acetaminophen 325 mg tablet 325 mg PO DAILY PRN PRN Pain 03/12/22 [History Last Taken 03/12/22] aspirin 325 mg tablet 325 mg PO DAILY PRN PRN Pain 03/12/22 [History Last Taken 03/12/22] bupropion HCl 300 mg 24 hr tablet, extended release 300 mg PO BID 03/12/22 [History Last Taken 03/12/22] jzbtvyandbwl-Mk-zqlq-minerals 27 mg-0.4 mg tablet 1 tab PO DAILY SUPPLEMENT 03/12/22 [History Last Taken 03/11/22] quetiapine 50 mg tablet 50 mg PO QHS SLEEP 03/12/22 [History Last Taken 03/11/22] Allergy/AdvReac Type Severity Reaction Status Date / Time alendronate sodium Allergy GI UPSET Verified 03/12/22 14:36 [From Fosamax] amoxicillin [From Augmentin] Allergy MADE MOUTH Verified 03/12/22 14:36 VERY TENDER clavulanic acid Allergy MADE MOUTH Verified 03/12/22 14:36 [From Augmentin] VERY TENDER escitalopram [From Lexapro] Allergy DECREASED Verified 03/12/22 14:36 LIBIDO, SEXUAL DYSFUNCTION fluoxetine [From Prozac] Allergy SEXUAL Verified 03/12/22 14:36 DYSFUNCTION latex Allergy Rash Verified 03/12/22 14:36 lisinopril Allergy COUGH Verified 03/12/22 14:36 paroxetine [From Paxil] Allergy NUMB Verified 03/12/22 14:36 venlafaxine [From Effexor] Allergy BLOATING, Verified 03/12/22 14:36 SEXUAL DYSFUNCTION Surgical History History of appendectomy History of hysterectomy History of tonsillectomy Social History Smoking Status: Never smoker ROS ROS Narrative 14 complete ROS unobtainable as patient has dementia mainly gathered from patient's at the bedside. Constitutional: Reports fatigue and weakness. No fever or recent URI symptoms HEENT: Reports systems reviewed and no addt'l complaints, except as documented Respiratory/Chest: Denies chest pain, shortness of breath at rest or with exertion Gastrointestinal: Denies coffee ground emesis, hematemesis or vomiting Genitourinary: Denies burning urination or new urinary tract symptoms Musculoskeletal: Mild joint pain and limited range of motion Neurologic: Described in detail in HPI. Denies seizure-like activity. Chronic gait instability/imbalance. No recent fall. Psychiatric: Dementia, anxiety and depression skin: No ulcer. No rash Endocrinology: Reports systems reviewed and no addt'l complaints, except as documented Hematologic/Lymphatic: Reports systems reviewed and no addt'l complaints, except as documented Rest 14 ROS are negative except as mentioned in HPI Vital Signs Vital Signs Vital Signs: 03/12/22 14:36 03/12/22 15:25 03/12/22 15:28 Temperature 97.2 F L Temperature Source Temporal Pulse Rate 104 H 92 Pulse Rate [Lying] Pulse Rate [Sitting (for 1 minute prior to obtaining)] Pulse Rate [Standing (for 1 minute prior to obtaining)] Respiratory Rate 15 19 H Respiratory Effort Normal Respiratory Pattern Normal Blood Pressure 107/79 155/80 H Blood Pressure [Lying] Blood Pressure [Sitting (for 1 minute prior to obtaining)] Blood Pressure [Standing (for 1 minute prior to obtaining)] Blood Pressure Mean 88 105 Blood Pressure Mean [Lying] Blood Pressure Mean [Sitting (for 1 minute prior to obtaining)] Blood Pressure Mean [Standing (for 1 minute prior to obtaining)] Pulse Ox 97 98 Oxygen Delivery Method Room Air Room Air 03/12/22 15:31 03/12/22 17:00 Temperature Temperature Source Pulse Rate 85 Pulse Rate [Lying] 87 Pulse Rate [Sitting (for 1 minute prior to obtaining)] 92 Pulse Rate [Standing (for 1 minute prior to obtaining)] 103 H Respiratory Rate 16 Respiratory Effort Respiratory Pattern Blood Pressure 147/81 H Blood Pressure [Lying] 125/78 H Blood Pressure [Sitting (for 1 minute prior to obtaining)] 125/78 H Blood Pressure [Standing (for 1 minute prior to obtaining)] 150/76 H Blood Pressure Mean 103 Blood Pressure Mean [Lying] 93 Blood Pressure Mean [Sitting (for 1 minute prior to obtaining)] 93 Blood Pressure Mean [Standing (for 1 minute prior to obtaining)] 100 Pulse Ox 95 Oxygen Delivery Method Room Air Weight Weight: 139 lb 5.314 oz Body Mass Index (BMI) 29.1 Physical Exam Narrative Physical exam General: Alert, Oriented x3, Cooperative HEENT: Bilateral hard of hearing. Atraumatic, PERRLA, EOMI, Normocephalic Oral: No Gingival or Mucosal Lesions/ Ulcerations Neck: Supple, No JVD, Negative Carotid Bruits Lungs: Air entry diminished in bilateral lung bases. No crepitation/rhonchi Cardiovascular: Sinus regular rhythm, low intensity S1 and S2, systolic murmur LLSB. Abdomen: Bowel Sounds Present, Soft, Non Tender, Non-Distended : No renal angle tenderness. No suprapubic tenderness. Extremities: No edema, Capillary Refill Less than 3 Seconds Skin: No rashes, No breakdown Musculoskeletal: Bilateral knee and hip joint arthritis. Muscle strength 4+/5 at major joints. No Tenderness to Palpation of Joints or Extremities Neurological: Cranial nerves II-XII grossly intact, DTR 2+/4, NIH 1 for missing the month Psych/Mental Status: Flat affect, dementia Results Lab / Micro Data Result Diagrams: 03/12/22 15:25 03/12/22 15:25 Labs: Laboratory Results - last 24 hr 03/12/22 15:25: WBC 6.5, RBC 3.47 L, Hgb 8.9 L, Hct 28.6 L, MCV 82.4, MCH 25.6 L , MCHC 31.1 L, RDW Std Deviation 48.8 H, RDW Coeff of Roro 16.1 H, Plt Count 360, MPV 9.1, Immature Gran % (Auto) 0.300, Neut % (Auto) 50.0, Lymph % (Auto) 32.7, [place] % (Auto) 9.6, Eos % (Auto) 6.5 H, Baso % (Auto) 0.9, Absolute Neuts (auto) 3.2, Absolute Lymphs (auto) 2.11, Nucleated RBC % 0 03/12/22 15:25: PT 13.0, INR 1.0 03/12/22 15:25: Sodium 143, Potassium 3.5, Chloride 109 H, Carbon Dioxide 27.0, Anion Gap 7, BUN 22 H, Creatinine 1.24 H, Estim Creat Clear Calc 35.50, Est GFR (MDRD) Af Amer 53 L, Est GFR (MDRD) Non-Af 44 L, BUN/Creatinine Ratio 17.7, Glucose 123 H, Calcium 9.0, Total Bilirubin 0.20, AST 26, ALT 27, Alkaline Phosphatase 75, Troponin I High Sens 6, Total Protein 7.3, Albumin 3.5, Globulin 3.8, Albumin/Globulin Ratio 0.9, Lipase 247 03/12/22 16:20: Urine Color Straw, Urine Clarity Clear, Urine pH 7.0, Ur Specific [place] 1.010, Urine Protein Negative, Urine Glucose (UA) Normal, Urine Ketones Negative, Urine Occult Blood 25 H, Urine Nitrite Negative, Urine Bilirubin Negative, Urine Urobilinogen Normal, Ur Leukocyte Esterase 500 H, Urine RBC 0-5 SEEN, Urine WBC 0-5 SEEN, Ur Squamous Epith Cells 0-5 SEEN, Urine Bacteria RARE, Urine Mucus 0 SEEN Micro: Microbiology 03/12/22 17:23 Stool Stool Occult Blood (FERNANDO) - Final Radiology Impression Brain CT 03/12/22 15:11 IMPRESSION: Chronic involutional changes of the brain. No acute hemorrhage Electronically Signed: Yusuf Helton MD at 16:05 EDT , Chest X-Ray 03/12/22 15:50 IMPRESSION: No acute pulmonary process, no interval change Electronically Signed: Yusuf Helton MD at 16:04 EDT , Assessment & Plan Assessment/Plan (1) TIA (transient ischemic attack): PLAN: Plan This 82-year-old female with history of dementia, hypertension dyslipidemia is being admitted for work-up for TIA after she had brief spell of garbled/slurred speech and decreased responsiveness: 1. Possible TIA or side effect of antidepressant/tranquilizer: Patient is being admitted in PCU on monitored telemetry bed. MRI brain, MRA head and neck ordered. Patient is on TIA protocol with BP, glucose monitoring and NIH stroke scale. NIH score is only 1 for missing the month but patient has dementia and depression. PT OT and speech evaluation ordered. Patient started on baby aspirin and high intensity statin 2. Acute anemia on baseline anemia of chronic disease: Patient baseline hemoglobin runs between 11-12 g%. H&H 8.9/28.6%. Platelet count 360,000. Stool for occult blood negative. Monitor CBC daily. 3. Hypertension: Blood pressure in low normal range. Follow permissive hypertension protocol for TIA/stroke. Patient on HCTZ, does decreased to half. Hold for systolic BP less than 115 with 4. Chronic intermittent asthma: Patient not on inhaler at home. Albuterol as needed every 6 hourly or shortness of breath/wheezing 5. Anxiety, depression and dementia: Patient on high dose of bupropion 300 mg extended release twice daily and quetiapine 50 mg daily. Bupropion dose decreased. Hold antidepressant for lethargy/sedation. 6. Obstructive sleep apnea: Patient uses CPAP at home. CPAP ordered. Other comorbidities include complex tear of medial meniscus of right knee, primary osteoarthritis of right knee, chronic gait instability/disequilibrium, osteoporosis: Home medication reconciliation done Living will/advanced directive/end of life care: Patient does have living will or advanced directive. Her is power of workers compensation defense attorney for health. After discussion of benefits/risks procedures involved with full code, DNR CC arrest and DNR CC, the patient and her are not very clear at this time but will discuss later on. He said we will put full code for now. Patient does want artificial life support including intubation, tube feed, ventilator and/chest compression, central venous catheter, vasopressor and DC shock if needed Total time spent in [id number] encounter in discussion of advanced directive 16 minutes. Microbiology Past 72 Hours 03/12/22 17:23 Stool Stool Occult Blood (FERNANDO) - Final Laboratory Results 03/12/22 15:25: WBC 6.5, RBC 3.47 L, Hgb 8.9 L, Hct 28.6 L, MCV 82.4, MCH 25.6 L , MCHC 31.1 L, RDW Std Deviation 48.8 H, RDW Coeff of Roro 16.1 H, Plt Count 360, MPV 9.1, Immature Gran % (Auto) 0.300, Neut % (Auto) 50.0, Lymph % (Auto) 32.7, [place] % (Auto) 9.6, Eos % (Auto) 6.5 H, Baso % (Auto) 0.9, Absolute Neuts (auto) 3.2, Absolute Lymphs (auto) 2.11, Nucleated RBC % 0 03/12/22 15:25: PT 13.0, INR 1.0 03/12/22 15:25: Sodium 143, Potassium 3.5, Chloride 109 H, Carbon Dioxide 27.0, Anion Gap 7, BUN 22 H, Creatinine 1.24 H, Estim Creat Clear Calc 35.50, Est GFR (MDRD) Af Amer 53 L, Est GFR (MDRD) Non-Af 44 L, BUN/Creatinine Ratio 17.7, Glucose 123 H, Calcium 9.0, Total Bilirubin 0.20, AST 26, ALT 27, Alkaline Phosphatase 75, Troponin I High Sens 6, Total Protein 7.3, Albumin 3.5, Globulin 3.8, Albumin/Globulin Ratio 0.9, Lipase 247 03/12/22 16:20: Urine Color Straw, Urine Clarity Clear, Urine pH 7.0, Ur Specific [place] 1.010, Urine Protein Negative, Urine Glucose (UA) Normal, Urine Ketones Negative, Urine Occult Blood 25 H, Urine Nitrite Negative, Urine Bilirubin Negative, Urine Urobilinogen Normal, Ur Leukocyte Esterase 500 H, Urine RBC 0-5 SEEN, Urine WBC 0-5 SEEN, Ur Squamous Epith Cells 0-5 SEEN, Urine Bacteria RARE, Urine Mucus 0 SEEN 03/12/22 18:13: Magnesium 2.2 Clinical Impression(s) from Imaging Studies Brain CT 03/12/22 15:11 IMPRESSION: Chronic involutional changes of the brain. No acute hemorrhage Chest X-Ray 03/12/22 15:50 IMPRESSION: No acute pulmonary process, no interval change Electronically Signed: Yusuf Helton MD at 16:04 EDT , Charges/Coding Visit Charges OBSV E&M: 60516 Initial observation care L3 Procedures Hospitalists Procedures: 14011 Advncd Care Plan 30 Min
[2022-03-12] MEDS: Aspirin 81 MG TAB.CHEW PO (18:48)
--- NOTE | 2022-03-12 18:56 | ECHOD_ITS ---
Reason For Study: TIA/CVA Procedure This was a 2D Doppler, Color Flow transthoracic echocardiogram. Exam performed portable in patient room. Left Ventricle Normal left ventricle. The estimated ejection fraction is 55-60 %. Right Ventricle Normal right ventricle. Normal systolic function. Atria Normal left atrium. Normal right atrium. Mitral Valve The mitral valve is structurally normal. No prolapse or stenosis seen. Trivial mitral valve insufficiency. Tricuspid Valve Normal tricuspid valve. Aortic Valve Normal aortic valve. Mild (1+) aortic valve insufficiency. Pulmonic Valve The pulmonic valve is not well visualized. Great Vessels Normal aortic root. Pericardium/Pleural No pericardial effusion. Medication Performed a rapid injection of agitated mix of 9 cc saline and 1cc air to assess for atrial septal defect. MMode/2D Measurements & Calculations LVIDd: 3.5 cm IVSd: 0.87 cm Ao root diam: 3.2 cm LVIDs: 2.3 cm LVPWd: 0.79 cm RVDd: 2.8 cm FS: 35.9 % LAV(MOD-bp): 25.9 ml LVAd ap4: 20.9 cm2 SV(MOD-sp4): 29.7 ml LAV(MOD-bp) Indexed: 16.5 ml/m2 LVLd ap4: 7.0 cm LAV(MOD-sp2): 24.9 ml EDV(MOD-sp4): 52.1 ml LAV(MOD-sp4): 27.6 ml EDV(sp4-el): 52.9 ml LVAs ap4: 12.7 cm2 LVLs ap4: 6.3 cm ESV(MOD-sp4): 22.4 ml ESV(sp4-el): 21.9 ml EF(MOD-sp4): 57.1 % EF(sp4-el): 58.7 % SV(sp4-el): 31.0 ml LA A4 area: 12.5 cm2 LA dimension(2D): 3.0 cm RA A4 area: 11.1 cm2 Doppler Measurements & Calculations MV E max silvino: 94.8 cm/sec Lat Peak E' Silvino: 9.2 cm/sec Med Peak E' Silvino: 6.2 cm/sec MV A max silvino: 114.4 cm/sec E/E' lat: 10.3 E/E' med: 15.2 MV E/A: 0.83 Ao V2 max: 164.3 cm/sec AI max silvino: 381.0 cm/sec PA V2 max: 71.2 cm/sec Ao max P.8 mmHg AI max P.1 mmHg AI dec slope: 303.0 cm/sec2 AI P1/2t: 368.3 msec TR max silvino: 216.9 cm/sec TR max P.9 mmHg ECHO/Echo Complete Interpretation Summary The estimated ejection fraction is 55-60 %. Normal LV systolic function Trivial MR Mild AI Positive buble study Ordering Physician: Jd Woodard Referring Physician: Franklin Díaz Performed By: Theresa Aiken RDCS
[2022-03-12 19:06] LABS: Magnesium 2.2 mg/dL (1.6-2.6)
[2022-03-12] MEDS: 0.9% Normal Saline 1,000 ML 75 ML IV (21:40)
[2022-03-12] MEDS: Atorvastatin Calcium 80 MG Tablet PO (21:41)
[2022-03-12] MEDS: Heparin Injection (Vial) 5,000 UNIT/ML VIAL 5000 UNIT SC (21:41)
[2022-03-12] MEDS: QUEtiapine 25 MG Tablet 50 MG PO (22:35)
[2022-03-12] MEDS: buPROPion (XL) 150 MG TABLET.XL PO (22:36)
--- NOTE | 2022-03-12 22:47 | CPS ---
Pt.'s home CPAP unit is set up and ready for use [facility].
[2022-03-13] VITALS (16 sets, daily range): BP systolic 118–147; BP diastolic 68–94; PULSE 79–98; RESP 14–18; TEMP 36.4–37.3; O2SAT 93–98; BMI 28.8
[2022-03-13 01:05] LABS: Bedside Glucose 116 mg/dL (74-106)
[2022-03-13 06:04] LABS: Absolute Lymphocyte Count 1.86 X10^3/uL (0.83-4.51); Absolute Neutrophil Count 2.9 X10^3/uL (2.0-7.7); Basophil# 0.07 X10^3/uL; Basophil% 1.2 % (0-1); Eosinophil# 0.45 X10^3/uL; Eosinophils% 7.7 % (0-5); Hematocrit 26.4 % (37-47); Hemoglobin 8.3 g/dL (12.0-15.0); Lymphocyte # 1.86 X10^3/ul (0.83-4.51); Lymphocyte % 31.6 % (19-41); Mean Corp Hgb Conc 31.4 g/dL (32-36); Mean Corpuscular Hgb 26.3 pg (27.0-32.0); Mean Corpuscular Volume 83.5 fL (81-99); Mean Platelet Vol. 9.2 fl (6.2-12.0); Monocyte% 10.2 % (0-10); NRBC Flagged by Analyzer 0 % (0-5); Neutrophil # 2.88 X10^3/uL (2.7-7.7); Platelet Count 318 K/mm3 (150-450); RBC Distribution Width CV 15.9 % (11.6-14.6); Red Blood Count 3.16 M/mm3 (4.2-5.4); White Blood Count 5.9 K/mm3 (4.4-11.0)
[2022-03-13 06:38] LABS: Anion Gap 6 (5-15); BUN 18 mg/dL (7-18); BUN/Creat Ratio 15.1 RATIO (10-20); Calcium,Total 8.3 mg/dL (8.5-10.1); Chloride 112 mmol/L (98-107); Cholesterol 146 mg/dL (200); Creatinine, Serum 1.19 mg/dL (0.55-1.02); EST Glomerular Filtration Rate 46 mL/min (>60); Est Glom Filt Rate - Afr Amer 56 mL/min (>60); Estimated Creatinine Clearance 36.58 ml/min; Glucose 95 mg/dL (74-106); High Density Lipoprotein 52 mg/dL; Potassium 3.5 mmol/L (3.5-5.1); Sodium Level 143 mmol/L (136-145); Triglycerides 135 mg/dL; Very Low Density Lipoprotein 27 mg/dL (5-40)
[2022-03-13 07:05] LABS: Bedside Glucose 93 mg/dL (74-106)
[2022-03-13] MEDS: Heparin Injection (Vial) 5,000 UNIT/ML VIAL 5000 UNIT SC ×2 (08:37→22:10)
[2022-03-13] MEDS: Aspirin 81 MG TAB.CHEW PO (08:37)
[2022-03-13] MEDS: buPROPion (XL) 150 MG TABLET.XL PO (08:37)
--- NOTE | 2022-03-13 08:50 | PCM.PN.HOSP ---
Subjective Subjective DOS: 03/13/2022 CC: Follow-up TIA work-up Patient reports that she is feeling somewhat better. Denies chest pain or shortness of breath. He is very anxious about the event however. Bowel and bladder okay, appetite is improving. Denies lightheadedness at this time. Objective Data Objective Data Vital Signs: Vital Signs Temp Pulse Resp BP Pulse Ox O2 Del Method FiO2 98.1 F 89 16 137/72 H 95 Room Air 21 03/13/22 08:30 03/13/22 08:30 03/13/22 08:30 03/13/22 08:30 03/13/22 08:30 03/13/22 08:30 03/12/22 22:43 Oxygen Delivery Method Room Air Weight: 62.5 kg Body Mass Index (BMI) 28.8 Intake & Output: Intake and Output for Last 24 Hours 03/11/22 03/12/22 03/13/22 23:59 23:59 23:59 Intake Total 500 / 500 Balance 500 / 500 Lab / Micro Data Result Diagrams: 03/13/22 05:47 03/13/22 05:47 Labs: Laboratory Results - last 24 hr 03/12/22 15:25: WBC 6.5, RBC 3.47 L, Hgb 8.9 L, Hct 28.6 L, MCV 82.4, MCH 25.6 L, MCHC 31.1 L, RDW Std Deviation 48.8 H, RDW Coeff of Roro 16.1 H, Plt Count 360, MPV 9.1, Immature Gran % (Auto) 0.300, Neut % (Auto) 50.0, Lymph % (Auto) 32.7, [place] % (Auto) 9.6, Eos % (Auto) 6.5 H, Baso % (Auto) 0.9, Absolute Neuts (auto) 3.2, Absolute Lymphs (auto) 2.11, Nucleated RBC % 0 03/12/22 15:25: PT 13.0, INR 1.0 03/12/22 15:25: Sodium 143, Potassium 3.5, Chloride 109 H, Carbon Dioxide 27.0, Anion Gap 7, BUN 22 H, Creatinine 1.24 H, Estim Creat Clear Calc 35.50, Est GFR (MDRD) Af Amer 53 L, Est GFR (MDRD) Non-Af 44 L, BUN/Creatinine Ratio 17.7, Glucose 123 H, Calcium 9.0, Total Bilirubin 0.20, AST 26, ALT 27, Alkaline Phosphatase 75, Troponin I High Sens 6, Total Protein 7.3, Albumin 3.5, Globulin 3.8, Albumin/Globulin Ratio 0.9, Lipase 247 03/12/22 16:20: Urine Color Straw, Urine Clarity Clear, Urine pH 7.0, Ur Specific [place] 1.010, Urine Protein Negative, Urine Glucose (UA) Normal, Urine Ketones Negative, Urine Occult Blood 25 H, Urine Nitrite Negative, Urine Bilirubin Negative, Urine Urobilinogen Normal, Ur Leukocyte Esterase 500 H, Urine RBC 0-5 SEEN, Urine WBC 0-5 SEEN, Ur Squamous Epith Cells 0-5 SEEN, Urine Bacteria RARE, Urine Mucus 0 SEEN 03/12/22 18:13: Magnesium 2.2 03/13/22 00:40: POC Glucose 116 H 03/13/22 05:47: WBC 5.9, RBC 3.16 L, Hgb 8.3 L, Hct 26.4 L, MCV 83.5, MCH 26.3 L, MCHC 31.4 L, RDW Std Deviation 49.0 H, RDW Coeff of Roro 15.9 H, Plt Count 318, MPV 9.2, Immature Gran % (Auto) 0.300, Neut % (Auto) 49.0, Lymph % (Auto) 31.6, [place] % (Auto) 10.2 H, Eos % (Auto) 7.7 H, Baso % (Auto) 1.2 H, Absolute Neuts (auto) 2.9, Absolute Lymphs (auto) 1.86, Nucleated RBC % 0 03/13/22 05:47: Sodium 143, Potassium 3.5, Chloride 112 H, Carbon Dioxide 25.0, Anion Gap 6, BUN 18, Creatinine 1.19 H, Estim Creat Clear Calc 36.58, Est GFR (MDRD) Af Amer 56 L, Est GFR (MDRD) Non-Af 46 L, BUN/Creatinine Ratio 15.1, Glucose 95, Calcium 8.3 L, Triglycerides 135, Cholesterol 146, LDL Cholesterol 67, VLDL Cholesterol 27, HDL Cholesterol 52 03/13/22 06:14: POC Glucose 93 Micro: Microbiology 03/12/22 17:23 Stool Stool Occult Blood (FERNANDO) - Final Radiography Diagnostic Testing: Radiology Impression Brain CT 03/12/22 15:11 IMPRESSION: Chronic involutional changes of the brain. No acute hemorrhage Electronically Signed: Yusuf Helton MD at 16:05 EDT , Chest X-Ray 03/12/22 15:50 IMPRESSION: No acute pulmonary process, no interval change Electronically Signed: Yusuf Helton MD at 16:04 EDT , Physical Exam Const alert and no apparent distress HEENT head/scalp atraumatic Eyes PERRL Neck supple Resp normal respiratory effort and clear to auscultation bilaterally Cardio regular rate and regular rhythm GI non-distended Extremity Extremity Narrative: Moving all EXTR days Neuro Neuro Narrative: No focal deficits appreciated Assessment & Plan Assessment/Plan (1) Dizziness: (2) Anemia: (3) Medication reaction: PLAN: Plan Ms. Troy is an 82-year-old female with a history of depression, hard of hearing, hypertension, osteoporosis, and asthma who presented 03/12/2022. Discussed with her and at bedside. They reported that at breakfast she began to fall asleep. He came in and try to move her to the chair and she continued to start to nod off and he had difficulty understanding her words during that time. Denies that is happened before. Denies any chest pain or shortness of breath or palpitations at that time, does remember this event. Remember specifically being tired at the time with no dizziness was reported when I spoke with her and her . Does note that over the past few months she has had some dizziness when standing and will start to fall back. Has not had any syncopal episodes. Does note that 4 days ago her hydroxyzine was switched to Seroquel to help with her sleep. This has worsened symptoms. No seizure-like activity was reported #Altered mental status?resolved There was conversing for TIA history head and mumbled words when being moved to the chair Upon further discussion with her and her she reported that she was very tired while she was sitting eating her oatmeal and began falling asleep/nodding off. When he tried to move her to the chair she said she is still partially asleep and was mumbling MRI/MRA without acute findings It was then revealed that she was on hydroxyzine but this was changed to Seroquel 4 days ago, which can cause excessive sedation as well as worsened dizziness and orthostatic hypotension Will hold Seroquel, discussed extensively with her and her There was concern for TIA/stroke symptoms on admission?but given MRI/MRA without acute findings as well as how she and her described her symptoms today in light of starting a new medicine, Seroquel, feel that is the most likely culprit. Did have echo as part of the work-up which seems to have instantly noted a positive bubble study Given that this event Is suspected to be attributed to the above, may just need outpatient follow-up or monitoring by PCP #Presyncope She has been having episodes that sound to be presyncopal over the past several months She will get dizzy when going from sitting to standing and will take second to get her bearings Consistently associated with this change in position Has been getting fluids here and has not had any of these episodes Physical therapy does not think she needs any acute needs Orthostatic vital signs negative here however symptoms are primarily early in the morning and she is also been hydrated. Does report she rarely ever drinks water and stays chronically dehydrated. Have counseled her on this #Acute anemia On further evaluation, hemoglobin was 11.3 06/20/2021 and prior to that had been normal. Now she is 8.3 Concerned that this could be contributing to her dizziness and episodes Is occult blood is negative, will get iron panel and B12 as well as TSH and reticulocyte count Did have microscopic hematuria on her UA as well, will obtain kidney ultrasound #Chronic intermittent asthma Albuterol as needed #Anxiety, depression, dementia Home med list reports Wellbutrin 300 mg p.o. twice daily, this is over the FDA recommended dose, clarified that she is taking Wellbutrin 300 daily Was taking Seroquel nightly, concerned that this may have led to presentation, will discontinue this Discussed this with her and her as well as melatonin and also taking Wellbutrin early in the morning as this could affect sleep as well Will start melatonin scheduled for sleep #DVT ppx: Heparin subcu Yulissa Rodriguez MD Charges/Coding Visit Charges OBSV E&M: 83138 Subsequent observation care L2
[2022-03-13] MEDS: LORazepam 2 MG/ML Syringe 1 MG IV (08:54)
--- NOTE | 2022-03-13 09:00 | MRI_ITS ---
STUDY: MRI BRAIN WITHOUT CONTRAST REASON FOR EXAM: Female, 82 years old. TIA TECHNIQUE: Standardized multiplanar fat and water weighted pulse sequences were obtained. COMPARISON: CT head without contrast 03/12/2022. FINDINGS: Normal size of the ventricles and extra-axial spaces for the patient''s age. T2 FLAIR hyperintensity foci in the periventricular white matter, more in the forceps major and forceps minor. These are chronic white matter ischemic changes. No mass effects and no midline shift. Normal bilateral basal ganglia. Normal thalami. There is no extra-axial fluid accumulation. Normal flow voids within the major intracranial circulation suggesting patency by spin echo criteria. Normal sella turcica, pituitary gland, infundibular stalk, optic chiasm and hypothalamus. Normal tectal plate and pineal gland. Normal midbrain, yanet and medulla. Normal cerebellum. Normal basal cisterns. Normal bilateral temporal bones. Normal bilateral internal auditory canals. No demonstrated orbital abnormality, within the constraints of a routine brain study. Normal visualized paranasal sinuses. Normal calvarium and skull base. Normal visualized soft tissue structures. Normal visualized upper cervical spine. MRI/Brain without Contrast IMPRESSION: 1. No MRI evidence of acute or subacute ischemic infarct or remote cortical based ischemic infarct. 2. Chronic white matter ischemic changes in both cerebral hemispheres. Electronically Signed: Sivakumar Jennings MD at 10:54 EDT ,
--- NOTE | 2022-03-13 09:00 | MRI_ITS ---
STUDY: MRA NECK WITHOUT CONTRAST REASON FOR EXAM: Female, 82 years old. TIA TECHNIQUE: Source images were obtained, MIPs were performed. The study was performed unenhanced. COMPARISON: None. FINDINGS: RIGHT CAROTID ARTERIES: Normal right common carotid artery (CCA). Normal right carotid bulb. Normal origin of the right internal carotid (ICA) artery without a hemodynamically significant stenosis. Normal visualized cervical portion of the right internal carotid artery. Normal origin of the right external carotid artery (ECA). LEFT CAROTID ARTERIES: Normal left common carotid artery (CCA). Normal left carotid bulb. Normal origin of the left internal carotid (ICA) artery without a hemodynamically significant stenosis. Normal visualized cervical portion of the left internal carotid artery. Normal origin of the left external carotid artery (ECA). VERTEBRAL ARTERIES: Normal antegrade flow within the bilateral codominant vertebral artery without a hemodynamically significant stenosis. MRI/MRA Neck without Contrast IMPRESSION: Normal bilateral cervical carotid and vertebral arteries. Electronically Signed: Sivakumar Jennings MD at 10:56 EDT ,
--- NOTE | 2022-03-13 09:00 | MRI_ITS ---
STUDY: MRA OF THE HEAD WITHOUT CONTRAST REASON FOR EXAM: Female, 82 years old. TIA TECHNIQUE: 3-D [id number] (TOF) imaging was performed with MIPs. The study was performed unenhanced. COMPARISON: None. FINDINGS: Normal bilateral petrous carotid arteries. Normal right cavernous carotid artery with a normal supraclinoid bifurcation. Normal left cavernous carotid artery with a normal supraclinoid bifurcation. Normal right A1 segment of the anterior cerebral artery. Normal left A1 segment of the anterior cerebral artery. Normal intact anterior communicating artery (ACOM). Normal bilateral A2 segments of the anterior cerebral arteries. Normal right M1 and M2 segments of the middle cerebral arteries, with a normal M1 bifurcation. Normal left M1 and M2 segments of the middle cerebral arteries, with a normal M1 bifurcation. Normal right posterior communicating artery (PCOM). Normal left posterior communicating artery (PCOM). Normal bilateral codominant vertebral arteries. Normal basilar artery with a normal basilar bifurcation. The visualized bilateral superior cerebellar (SCA) arteries are normal. Normal bilateral P1, P2 and visualized P3 segments of the posterior cerebral arteries. There is no demonstrated aneurysm of the [place]. There is no major vessel occlusion or hemodynamically significant stenosis. MRI/MRA Head ONLY without Contrast IMPRESSION: Normal MRA of the head Electronically Signed: Sivakumar Jennings MD at 10:55 EDT ,
[2022-03-13 11:35] LABS: Bedside Glucose 104 mg/dL (74-106)
--- NOTE | 2022-03-13 13:07 | CASEMGMT ---
Per therapy notes, pt needs no further therapy at discharge. SStaten RN CM
--- NOTE | 2022-03-13 15:14 | CASEMGMT ---
SW did not complete a PHQ 9 as patient did not have a Stroke. Tanisha OVERTON
--- NOTE | 2022-03-13 16:30 | US_ITS ---
STUDY: RENAL ULTRASOUND - COMPLETE REASON FOR EXAM: Female, 82 years old. Microscopic hematuria. TECHNIQUE: Ultrasound evaluation of the kidneys was performed with real-time and static garber-scale imaging. COMPARISON: None. FINDINGS: RIGHT KIDNEY: Normal location of the right kidney, which is low normal in size. The right kidney measures 8.2 cm. There is a normal cortex of the right kidney. The renal cortex measures 2.9 cm. There is no right renal mass or cyst. There are no right renal calculi. There is no right hydronephrosis. DISTAL RIGHT URETER: There is non-visualization of the distal right ureter. There is no demonstrated right ureterovesical junction calculus. There is no demonstrated right ureteral jet. LEFT KIDNEY: Normal location of the left kidney, which is low normal in size. The left kidney measures 9 cm. There is a normal cortex of the left kidney. The renal cortex measures 0 point cm. There is no left renal mass or cyst. There are no left renal calculi. There is no left hydronephrosis. DISTAL LEFT URETER: There is non-visualization of the distal left ureter. There is no demonstrated left ureterovesical junction calculus. There is a visualized left ureteral jet. BLADDER: The distended urinary bladder has a volume of 32 ml. There is a normal wall thickness of the distended urinary bladder. There is no demonstrated mass within the urinary bladder. There are no demonstrated bladder calculi. US/Kidney and Bladder IMPRESSION: Normal ultrasound of the kidneys and urinary bladder. Electronically Signed: Dinh Kessler DO at 19:15 EDT ,
[2022-03-13 16:43] LABS: Platelet Count 343 K/mm3 (150-450); RET-HE 26.4 pg (30-35)
[2022-03-13 17:15] LABS: Iron 34 ug/dL (50-170); Iron Binding Capacity,Total 380 ug/dL (250-450); Thyroid Stim Hormone (TSH) 2.14 uIU/mL (0.358-3.74)
[2022-03-13] MEDS: Atorvastatin Calcium 80 MG Tablet PO (22:10)
[2022-03-13] MEDS: MELATONIN 10 MG TABLET PO (22:10)
[2022-03-13] MEDS: Senna/Docusate Sodium 1 Tablet 2 TABLET PO (22:11)
[2022-03-14] VITALS (7 sets, daily range): BP systolic 124–132; BP diastolic 66–85; PULSE 80–91; RESP 14–17; TEMP 36.3–36.6; O2SAT 95–99; BMI 28.8
[2022-03-14 06:49] LABS: Absolute Lymphocyte Count 2.35 X10^3/uL (0.83-4.51); Absolute Neutrophil Count 3.4 X10^3/uL (2.0-7.7); Basophil# 0.09 X10^3/uL; Basophil% 1.3 % (0-1); Eosinophil# 0.51 X10^3/uL; Eosinophils% 7.2 % (0-5); Hematocrit 25.9 % (37-47); Hemoglobin 8.1 g/dL (12.0-15.0); Lymphocyte # 2.35 X10^3/ul (0.83-4.51); Lymphocyte % 33.3 % (19-41); Mean Corp Hgb Conc 31.3 g/dL (32-36); Mean Corpuscular Hgb 25.6 pg (27.0-32.0); Mean Platelet Vol. 9.8 fl (6.2-12.0); Monocyte# 0.72 X10^3/uL; Monocyte% 10.2 % (0-10); NRBC Flagged by Analyzer 0 % (0-5); Neutrophil # 3.37 X10^3/uL (2.7-7.7); Neutrophil % 47.7 % (47-70); Platelet Count 369 K/mm3 (150-450); RBC Distribution Width CV 16.1 % (11.6-14.6); RBC Distribution Width SD 48.7 fl (35.1-43.9); Red Blood Count 3.16 M/mm3 (4.2-5.4); White Blood Count 7.1 K/mm3 (4.4-11.0)
[2022-03-14 07:34] LABS: ALB/GLOB Ratio 0.9 RATIO (0.9-2.4); AST(SGOT) 17 U/L (15-37); Alanine Aminotransfer ALT/SGPT 21 U/L (13-56); Alkaline Phosphatase 61 U/L (45-117); Anion Gap 7 (5-15); BUN 19 mg/dL (7-18); BUN/Creat Ratio 17.1 RATIO (10-20); Calcium,Total 8.6 mg/dL (8.5-10.1); Chloride 110 mmol/L (98-107); Creatinine, Serum 1.11 mg/dL (0.55-1.02); EST Glomerular Filtration Rate 50 mL/min (>60); Est Glom Filt Rate - Afr Amer 61 mL/min (>60); Estimated Creatinine Clearance 39.22 ml/min; Ferritin 9 ng/mL (8-252); Globulin 3.2 g/dL (2.2-4.2); Glucose 92 mg/dL (74-106); Potassium 3.8 mmol/L (3.5-5.1); Protein, Total 6.2 g/dL (6.4-8.2); Sodium Level 142 mmol/L (136-145)
[2022-03-14] MEDS: Aspirin 81 MG TAB.CHEW PO (08:41)
[2022-03-14] MEDS: Heparin Injection (Vial) 5,000 UNIT/ML VIAL 5000 UNIT SC (08:41)
[2022-03-14] MEDS: buPROPion (XL) 300 MG TABLET.XL PO (08:43)
--- NOTE | 2022-03-14 09:00 | CASEMGMT ---
Social Work As per admitting layout artist, pt has LW and POA, however is not able to bring in the documents. As per layout artist, Darren Troy is pt's POA. CALLIE Guan
[2022-03-14] MEDS: hydroCHLOROthiazide 6.25mg TAB 6.25 MG PO (09:03)
--- NOTE | 2022-03-14 10:10 | CASEMGMT ---
AMANDA ZAPATA assessment: Face to Face with patient for initial transition planning/care coordination assessment. AMANDA ZAPATA introduced self and role at [facility] [place], pt voices understanding and consents to assessment. Pt is sitting on side of bed in no distress on room air. Pt is A/Ox4 and answers questions appropriately.? Care providers, pharmacy,?and demographics verified. ? Presentation: Pt arrives to ED w/ general weakness, momentary slurred speech and dizziness, sx's resolved Admitting dx: TIA, anemia PCP: Bre Specialists: None Preferred [facility]acy: [facility] Insurance: MCR/[place] Prescription Benefit:?yes Living Will/HPOA: Pt does have LW/HPOA and is aware that they are not on file at [facility] [place]. Pt states her , Darren Troy, is HPOA. LNOK: Darren Troy, /HPOA; Trae Higuera, friend Living Arrangements: Pt lives with in 1 story home and states no concerns at home. Pt is independent with ADL's. Transportation: Pt drives self or drives and states no transportation concerns. DME/HHC: Pt has a WW at home and states no need for any further DME. Pt states no hx of HHC or SNF. Pt states no concerns with going home at time of discharge. Pt is retired. Pt does not smoke cigarettes and occasionally drinks ETOH. Pt states no further concerns/needs. CM to follow for any further discharge planning/needs. Advised pt to ask for CM if any further questions/concerns/needs arise, voices understanding. Pt Goal: Home ? Plan: Home [place] AMANDA ZAPATA
--- NOTE | 2022-03-14 11:03 | DCINST_ITS ---
Discharge Instructions Diet Discharge Diet: No restrictions Activity Discharge Activity: Return to Normal Activity Follow Up Care Test Results: Test results from this visit will be discussed in further detail at your follow- up appointment, if applicable. Discharge Plan Admission Admit Date/Time: 03/13/22 15:44 Primary Reason for Your Visit: Mumbled speech, falling asleep while eating oatmeal Attending Provider: Yulissa Rodriguez Primary Care Provider: Franklin Díaz Consulting Providers: Jd Woodard Instructions Patient Instructions: Anemia Additional Instructions / Restrictions: *Please take this with you to your next doctors appointment* ? The symptoms you described were consistent with adverse effects from medication. It is important to stop the Seroquel, and also over the hydroxyzine. Though some people tolerate these medications well, and seems to have been the cause of your symptoms. ? You were found to have anemia, low hemoglobin, but there was no blood found in your stool and no evidence of a significant active bleed. Your iron was slightly low, you will be discharged on iron supplementation. You are also noted to have very small microscopic amount of red blood cells in your urine. This will need further followed up closely with your primary care physician, an ultrasound of your kidneys was on remarkable. ? He also indicated that you drink water very sparsely throughout the day, discussed ways to improve this and remain hydrated. ? We discussed taking her Wellbutrin around 8 or 9:00 in the morning to help improve sleep at bedtime, also advised taking 10 mg of melatonin at bedtime and taking this consistently, melatonin can be obtained [id number] at a pharmacy. ?During your admission there were no acute strokes found. ? During your work-up for stroke, a picture of your heart was obtained, which did show that there is a small communication between your atria. Given that there was no stroke, this was found incidentally. This is fairly common and occurs in about 25 to 30% of the population. However it is importantly have close follow-up with your primary care physician to assess for further monitoring or referral, though often not needed when they are asymptomatic. ?You will be sent out on a baby aspirin. -Please call your primary care provider's office upon discharge to schedule a hospital follow up within 1 week. -For any concerning signs or symptoms please call 911 or proceed to the nearest emergency department Discharge Orders/Prescriptions Prescriptions: New aspirin 81 mg Tablet,Chewable 81 mg PO BREAKFAST 30 Days Qty: 30 0RF ferrous sulfate 325 mg (65 mg iron) tablet,delayed release (DR/EC) 325 mg PO DAILY Qty: 30 0RF Continued hydrochlorothiazide 12.5 mg capsule 12.5 mg PO DAILY vundicedulyy-Of-tzhx-minerals 27-0.4 mg Tablet 1 tab PO DAILY bupropion HCl 300 mg tablet extended release 24 hr 300 mg PO DAILY Label Comments: Take one tablet by mouth once daily Discontinued acetaminophen 325 mg Tablet 325 mg PO DAILY PRN PRN (Reason: Pain) aspirin 325 mg Tablet 325 mg PO DAILY PRN PRN (Reason: Pain) quetiapine 50 mg tablet 50 mg PO QHS Label Comments: Take 1 tablet by mouth at bedtime Referrals / Follow Up: Franklin Díaz MD [Primary Care Provider] - Within 1 Week Disposition Disposition (needs filled in before D/C Order can be placed): Home, Self Care
--- NOTE | 2022-03-14 11:08 | DS.PCM_ITS ---
Providers Date of Admission: 03/13/22 Date of Discharge: 03/14/22 Primary Care Physician: Dr. Franklin Díaz MD Reason For Visit: Altered mental status Diagnosis Discharge Diagnosis (1) Dizziness: Status: Acute Code(s): R42 - Dizziness and giddiness (2) Anemia: Status: Acute Code(s): D64.9 - Anemia, unspecified (3) Medication reaction: Status: Acute Code(s): T50.905A - Adverse effect of unspecified drugs, medicaments and biological substances, initial encounter Plan #Altered mental status?resolved #Presyncope #Acute anemia #Chronic intermittent asthma #Anxiety, depression, dementia Medications at Discharge Home Medications hydrochlorothiazide 12.5 mg capsule 12.5 mg PO DAILY BLOOD PRESSURE 06/10/18 bupropion HCl 300 mg 24 hr tablet, extended release 300 mg PO DAILY 03/12/22 iawnkasrzpkq-Vp-muxj-minerals 27 mg-0.4 mg tablet 1 tab PO DAILY SUPPLEMENT 03/12/22 aspirin 81 mg chewable tablet 81 mg PO BREAKFAST 30 days #30 tabs 03/14/22 ferrous sulfate 325 mg (65 mg iron) tablet,delayed release 325 mg PO DAILY #30 tabs 03/14/22 Hospital Course Procedures 2-D Echocardiogram Summary of Care Provided Minutes Spent on Discharge: 33 Hospital Course: Ms. Troy is an 82-year-old female with a history of depression, hard of hearing, hypertension, osteoporosis, and asthma who presented 03/12/2022. Discussed with her and at bedside. They reported that at breakfast she began to fall asleep. He came in and try to move her to the chair and she continued to start to nod off and he had difficulty understanding her words during that time. Denies that is happened before. Denies any chest pain or shortness of breath or palpitations at that time, does remember this event. Remember specifically being tired at the time with no dizziness was reported when I spoke with her and her . Does note that over the past few months she has had some dizziness when standing and will start to fall back. Has not had any syncopal episodes. Does note that 4 days ago her hydroxyzine was switched to Seroquel to help with her sleep. This has worsened symptoms. No seizure-like activity was reported. Initially came in as a TIA work-up but after discussing with her and her seems to been more medication related as she was actively falling asleep and was mumbling because she kept nodding off. Given the timeline of Seroquel starting this is likely the culprit. Additionally complained of dizziness upon standing over the past several months which correlates with starting of hydroxyzine for her sleep. This was always worse in the morning as was her status in the morning after the Seroquel as nakul hairston Discussed that some people tend to be more sensitive these medications and that this may be the case for her. MRI/MRA showed no acute stroke. Orthostats were negative. She was monitored on telemetry and echo obtained. Echo read was after MRI/MRA and ruled out stroke, but echo did show positive bubble study. Given lack of other findings another explanation this seems to have been an incidental finding. Advised to follow-up with her primary care physician regarding this, may need monitored versus routine follow-up. Additionally she was noted to be anemic, required if there could be blood loss that worsen clinical presentation. Was fairly consistent hemoglobin trended over several d ays, it is certainly lower than baseline. Iron studies revealed low iron, replacement given. Additionally FOBT was negative her blood, did have several red blood cells in her urine, kidney ultrasound was unremarkable. May need further follow-up outpatient, advised to discuss this with her primary care physician. On day of discharge she was doing well, and had no further episodes of dizziness or feeling overly sedated, no observed oversedation. Discussed extensively with both her and her . Discharge instructions provided to patient as below: *Please take this with you to your next doctors appointment* ? The symptoms you described were consistent with adverse effects from medication.? It is important to stop the Seroquel, and also over the hydroxyzine.? Though some people tolerate these medications well, and seems to have been the cause of your symptoms. ? You were found to have anemia, low hemoglobin, but there was no blood found in your stool and no evidence of a significant active bleed.? Your iron was slightly low, you will be discharged on iron supplementation.? You are also noted to have very small microscopic amount of red blood cells in your urine.? This will need further followed up closely with your primary care physician, an ultrasound of your kidneys was on remarkable. ? He also indicated that you drink water very sparsely throughout the day, discussed ways to improve this and remain hydrated. ? We discussed taking her Wellbutrin around 8 or 9:00 in the morning to help improve sleep at bedtime, also advised taking 10 mg of melatonin at bedtime and taking this consistently, melatonin can be obtained [id number] at a [facility]. ?During your admission there were no acute strokes found. ? During your work-up for stroke, a picture of your heart was obtained, which did show that there is a small communication between your atria.? Given that there was no stroke, this was found incidentally.? This is fairly common and oc curs in about 25 to 30% of the population.? However it is importantly have close follow-up with your primary care physician to assess for further monitoring or referral, though often not needed when they are asymptomatic. ?You will be sent out on a baby aspirin. -Please call your primary care provider's office upon discharge to schedule a hospital follow up within 1 week. -For any concerning signs or symptoms please call 911 or proceed to the nearest emergency department Physical Exam Const alert and no apparent distress HEENT head/scalp atraumatic Eyes PERRL Neck supple Resp normal respiratory effort and clear to auscultation bilaterally Cardio regular rate and regular rhythm GI non-distended Extremity Extremity Narrative: Moving all EXTR days Neuro Neuro Narrative: No focal deficits appreciated Weight / BMI Weight Weight: 62.5 kg Body Mass Index (BMI) 28.8 ABG / Lab / Microbiology Data Result Diagrams: 03/14/22 05:12 03/14/22 05:12 Laboratory: Laboratory Results - last 24 hr 03/13/22 05:47: Iron 34 L, TIBC 380, Folate 11.90, TSH 2.14 03/13/22 05:47: Retic Count 1.90 H, Immature Retic Fraction 18.80 H, Retic Hgb Equivalent 26.4 L 03/13/22 11:08: POC Glucose 104 03/14/22 05:12: Sodium 142, Potassium 3.8, Chloride 110 H, Carbon Dioxide 25.0, Anion Gap 7, BUN 19 H, Creatinine 1.11 H, Estim Creat Clear Calc 39.22, Est GFR (MDRD) Af Amer 61, Est GFR (MDRD) Non-Af 50 L, BUN/Creatinine Ratio 17.1, Glucose 92, Calcium 8.6, Ferritin 9, Total Bilirubin 0.30, AST 17, ALT 21, Alkaline Phosphatase 61, Total Protein 6.2 L, Albumin 3.0 L, Globulin 3.2, Albumin/Globulin Ratio 0.9 03/14/22 05:12: WBC 7.1, RBC 3.16 L, Hgb 8.1 L, Hct 25.9 L, MCV 82.0, MCH 25.6 L , MCHC 31.3 L, RDW Std Deviation 48.7 H, RDW Coeff of Roro 16.1 H, Plt Count 369, MPV 9.8, Immature Gran % (Auto) 0.300, Neut % (Auto) 47.7, Lymph % (Auto) 33.3, [place] % (Auto) 10.2 H, Eos % (Auto) 7.2 H, Baso % (Auto) 1.3 H, Absolute Neuts (auto) 3.4, Absolute Lymphs (auto) 2.35, Nucleated RBC % 0 Microbiology: Microbiology 03/12/22 18:20 Urine, Clean Catch Urine Culture - Final Mixed Gram Positive Organisms 03/12/22 17:23 Stool Stool Occult Blood (FERNANDO) - Final Radiography Diagnostic Testing: Radiology Impression Echocardiogram 03/12/22 18:56 Interpretation Summary The estimated ejection fraction is 55-60 %. Normal LV systolic function Trivial MR Mild AI Positive buble study Ordering Physician: Jd Woodard Referring Physician: Franklin Díaz Performed By: Theresa Aiken RDCS Renal Ultrasound 03/13/22 16:30 IMPRESSION: Normal ultrasound of the kidneys and urinary bladder. Electronically Signed: Dinh Kessler DO at 19:15 EDT Reading Location ID and State: [facility] / [place] Tel [phone], Service support , D/C Instructions Discharge Diet: No restrictions Meaningful Use Info Meaningful Use Diagnoses (Choose all that apply): None applicable Discharge Plan Admission Admit Date/Time: 03/13/22 15:44 Primary Reason for Your Visit: Mumbled speech, falling asleep while eating oatmeal Attending Provider: Yulissa Rodriguez Primary Care Provider: Franklin Díaz Consulting Providers: Jd Woodard Instructions Patient Instructions: Anemia Additional Instructions / Restrictions: *Please take this with you to your next doctors appointment* ? The symptoms you described were consistent with adverse effects from medication. It is important to stop the Seroquel, and also over the hydroxyzine. Though some people tolerate these medications well, and seems to have been the cause of your symptoms. ? You were found to have anemia, low hemoglobin, but there was no blood found in your stool and no evidence of a significant active bleed. Your iron was slightl y low, you will be discharged on iron supplementation. You are also noted to have very small microscopic amount of red blood cells in your urine. This will need further followed up closely with your primary care physician, an ultrasound of your kidneys was on remarkable. ? He also indicated that you drink water very sparsely throughout the day, discussed ways to improve this and remain hydrated. ? We discussed taking her Wellbutrin around 8 or 9:00 in the morning to help improve sleep at bedtime, also advised taking 10 mg of melatonin at bedtime and taking this consistently, melatonin can be obtained [id number] at a pharmacy. ?During your admission there were no acute strokes found. ? During your work-up for stroke, a picture of your heart was obtained, which did show that there is a small communication between your atria. Given that there was no stroke, this was found incidentally. This is fairly common and occurs in about 25 to 30% of the population. However it is importantly have close follow-up with your primary care physician to assess for further monitoring or referral, though often not needed when they are asymptomatic. ?You will be sent out on a baby aspirin. -Please call your primary care provider's office upon discharge to schedule a hospital follow up within 1 week. -For any concerning signs or symptoms please call 911 or proceed to the nearest emergency department Discharge Orders/Prescriptions Prescriptions: New aspirin 81 mg Tablet,Chewable 81 mg PO BREAKFAST 30 Days Qty: 30 0RF ferrous sulfate 325 mg (65 mg iron) tablet,delayed release (DR/EC) 325 mg PO DAILY Qty: 30 0RF Continued hydrochlorothiazide 12.5 mg capsule 12.5 mg PO DAILY eouwafhotwdv-Dt-qsri-minerals 27-0.4 mg Tablet 1 tab PO DAILY bupropion HCl 300 mg tablet extended release 24 hr 300 mg PO DAILY Label Comments: Take one tablet by mouth once daily Discontinued acetaminophen 325 mg Tablet 325 mg PO DAILY PRN PRN (Reason: Pain) aspirin 325 mg Tablet 325 mg PO DAILY PRN PRN (Reason: Pain) quetiapine 50 mg tablet 50 mg PO QHS Label Comments: Take 1 tablet by mouth at bedtime Referrals / Follow Up: Franklin Díaz MD [Primary Care Provider] - Within 1 Week Disposition Disposition (needs filled in before D/C Order can be placed): Home, Self Care Charges/Coding Visit Charges Inpatient E&M: 44613 Subs Hosp L2
[2022-03-16 09:30] LABS: Vitamin B12 232 pg/mL (211-911)
== END 2022-03-14 14:22 | disposition home or self-care (01) | DRG 93 ==
LOC: ED 18:08 → PCU 18:34
PROVIDERS: Admitting Provider Internal Medicine; Emergency Provider Emergency Medicine; PCP Family Medicine; Visit Provider Internal Medicine
DX: R47.81 Slurred speech (principal); D63.8 Anemia in other chronic diseases classified elsewhere; F03.90 Unspecified dementia, unspecified severity, without behavioral disturbance, psychotic disturbance, mood disturbance, and anxiety; E78.5 Hyperlipidemia, unspecified; I10 Essential (primary) hypertension; J45.20 Mild intermittent asthma, uncomplicated; F41.9 Anxiety disorder, unspecified; G47.33 Obstructive sleep apnea (adult) (pediatric); T43.595A Adverse effect of other antipsychotics and neuroleptics, initial encounter; H91.93 Unspecified hearing loss, bilateral; R31.0 Gross hematuria; R26.81 Unsteadiness on feet; R55 Syncope and collapse; F32.A Depression, unspecified; Z79.82 Long term (current) use of aspirin; Z79.899 Other long term (current) drug therapy; Z87.440 Personal history of urinary (tract) infections
CPT/HCPCS: 36415; 70450; 70544; 70547; 70551; 71046; 76770; 80048; 80053; 80061; 81001; 82274; 82607; 82728; 82746; 82962; 83540; 83550; 83690; 83735; 84443; 84484; 85025; 85045; 85610; 87086; 87088; 93005; 93306; 94762; 97162; 97166; 99251; 99285; J7030; J7040; A4216; G0463

== ENCOUNTER → 2022-03-19 | Outpatient (CLI) | payer MEDICARE, BC, SELFPAY ==
[2022-03-19 15:22] LABS: Absolute Lymphocyte Count 1.72 X10^3/uL (0.83-4.51); Absolute Neutrophil Count 2.9 X10^3/uL (2.0-7.7); Basophil# 0.07 X10^3/uL; Basophil% 1.2 % (0-1); Eosinophil# 0.31 X10^3/uL; Eosinophils% 5.4 % (0-5); Hematocrit 27.8 % (37-47); Hemoglobin 8.7 g/dL (12.0-15.0); Lymphocyte # 1.72 X10^3/ul (0.83-4.51); Lymphocyte % 30.1 % (19-41); Mean Corp Hgb Conc 31.3 g/dL (32-36); Mean Corpuscular Hgb 26.8 pg (27.0-32.0); Mean Corpuscular Volume 85.5 fL (81-99); Mean Platelet Vol. 9.9 fl (6.2-12.0); Monocyte% 12.2 % (0-10); NRBC Flagged by Analyzer 0 % (0-5); Neutrophil # 2.89 X10^3/uL (2.7-7.7); Neutrophil % 50.6 % (47-70); Platelet Count 446 K/mm3 (150-450); RBC Distribution Width CV 17.1 % (11.6-14.6); Red Blood Count 3.25 M/mm3 (4.2-5.4); White Blood Count 5.7 K/mm3 (4.4-11.0)
== END | disposition home or self-care (01) ==
LOC: MFPLAB 12:09
PROVIDERS: PCP Family Medicine; Referring Provider Family Medicine; Visit Provider Family Medicine
DX: D64.9 Anemia, unspecified (principal)
CPT/HCPCS: 36415; 85025

== ENCOUNTER → 2022-06-15 | Outpatient (CLI) | payer MEDICARE, BC, SELFPAY ==
[2022-06-15 15:16] LABS: Absolute Lymphocyte Count 1.83 X10^3/uL (0.83-4.51); Absolute Neutrophil Count 3.2 X10^3/uL (2.0-7.7); Basophil# 0.06 X10^3/uL; Eosinophil# 0.28 X10^3/uL; Eosinophils% 4.7 % (0-5); Hematocrit 35.5 % (37-47); Lymphocyte # 1.83 X10^3/ul (0.83-4.51); Mean Corpuscular Hgb 26.1 pg (27.0-32.0); Mean Corpuscular Volume 84.3 fL (81-99); Mean Platelet Vol. 10.2 fl (6.2-12.0); Monocyte# 0.56 X10^3/uL; Monocyte% 9.5 % (0-10); NRBC Flagged by Analyzer 0 % (0-5); Neutrophil # 3.17 X10^3/uL (2.7-7.7); Neutrophil % 53.6 % (47-70); Platelet Count 393 K/mm3 (150-450); RBC Distribution Width CV 16.3 % (11.6-14.6); RBC Distribution Width SD 50.8 fl (35.1-43.9); Red Blood Count 4.21 M/mm3 (4.2-5.4); White Blood Count 5.9 K/mm3 (4.4-11.0)
[2022-06-15 16:08] LABS: Anion Gap 10 (5-15); BUN 15 mg/dL (7-18); BUN/Creat Ratio 13.5 RATIO (10-20); Calcium,Total 9.1 mg/dL (8.5-10.1); Chloride 103 mmol/L (98-107); Creatinine, Serum 1.11 mg/dL (0.55-1.02); EST Glomerular Filtration Rate 50 mL/min (>60); Est Glom Filt Rate - Afr Amer 61 mL/min (>60); Glucose 92 mg/dL (74-106); Iron 34 ug/dL (50-170); Iron Binding Capacity,Total 427 ug/dL (250-450); Potassium 3.9 mmol/L (3.5-5.1); Sodium Level 139 mmol/L (136-145)
== END | disposition home or self-care (01) ==
LOC: MFPLAB 13:47
PROVIDERS: PCP Family Medicine; Visit Provider Family Medicine
DX: D64.9 Anemia, unspecified (principal); F39 Unspecified mood [affective] disorder
CPT/HCPCS: 36415; 80048; 83540; 83550; 85025

== ENCOUNTER → 2022-07-16 | Outpatient (CLI) | payer MEDICARE, BC, SELFPAY ==
--- NOTE | 2022-07-16 15:47 | RAD_ITS ---
STUDY: X-RAY - SACRUM/COCCYX REASON FOR EXAM: Female, 82 years old. COCCYALGIA. TECHNIQUE: 3 view(s) of the sacrum and coccyx were obtained. COMPARISON: None. FINDINGS: Osteopenia. Mild arthrosis of both sacroiliac joints. Mild arthrosis of the symphysis pubis. Mild arthrosis of both hips. Mild to moderate lumbosacral spondylosis. Phleboliths. RAD/Sacrum-Coccyx min 2 Views IMPRESSION: Osteopenia with osteoarthritic changes as described. No acute abnormality or erosive changes. Electronically Signed: Hong Galo, at 9:29 EST ,
--- NOTE | 2022-07-16 15:47 | RAD_ITS ---
INDICATION: BACK PAIN EXAMINATION/TECHNIQUE: X-RAY - XR Spine Lumbar 2 or 3 Views COMPARISON: None. FINDINGS: VERTEBRAE: Preserved vertebral body height. No fracture. 2 mm anterolisthesis L4 on L5. Mild levoscoliosis. Exaggeration of the normal lumbar lordosis. Severe multilevel facet arthropathy. DISCS: Severe multilevel degenerative disc disease and spondylosis. INCLUDED ABDOMEN: Included bowel gas pattern is non-obstructive. RAD/Lumbar Spine 2 or 3 Views IMPRESSION: No evidence of lumbar spinal fracture. Grade 1 anterolisthesis L4 on L5. Severe multilevel degenerative disc disease and spondylosis. Electronically Signed: Meng Prabhakar MD at 22:34 EST ,
== END | disposition home or self-care (01) ==
LOC: MTRAD 15:46
PROVIDERS: PCP Family Medicine; Referring Provider Family Medicine; Visit Provider Family Medicine
DX: M53.3 Sacrococcygeal disorders, not elsewhere classified (principal); M54.50 Low back pain, unspecified
CPT/HCPCS: 72100; 72220

== ENCOUNTER → 2022-10-26 | Outpatient (CLI) | payer MEDICARE, BC, SELFPAY ==
[2022-10-26 15:56] LABS: Vitamin B12 219 pg/mL (211-911); Vitamin D,25 Hydroxy 17.9 ng/mL
== END | disposition home or self-care (01) ==
LOC: MTLAB 11:48
PROVIDERS: PCP Family Medicine; Referring Provider Nurse Practitioner Family; Visit Provider Nurse Practitioner Family
DX: R53.83 Other fatigue (principal); E55.9 Vitamin D deficiency, unspecified
CPT/HCPCS: 36415; 82306; 82607

== ENCOUNTER → 2023-01-01 | Outpatient (CLI) | payer MEDICARE, BC, SELFPAY ==
[2023-01-01 12:15] LABS: Absolute Lymphocyte Count 1.72 X10^3/uL (0.83-4.51); Absolute Neutrophil Count 3.2 X10^3/uL (2.0-7.7); Basophil# 0.07 X10^3/uL; Basophil% 1.1 % (0-1); Eosinophil# 0.37 X10^3/uL; Eosinophils% 6.1 % (0-5); Hematocrit 37.3 % (37-47); Hemoglobin 11.8 g/dL (12.0-15.0); Lymphocyte # 1.72 X10^3/ul (0.83-4.51); Lymphocyte % 28.2 % (19-41); Mean Corp Hgb Conc 31.6 g/dL (32-36); Mean Corpuscular Hgb 28.9 pg (27.0-32.0); Mean Corpuscular Volume 91.4 fL (81-99); Mean Platelet Vol. 9.6 fl (6.2-12.0); Monocyte# 0.69 X10^3/uL; Monocyte% 11.3 % (0-10); NRBC Flagged by Analyzer 0 % (0-5); Neutrophil # 3.24 X10^3/uL (2.7-7.7); Neutrophil % 53.1 % (47-70); Platelet Count 292 K/mm3 (150-450); RBC Distribution Width CV 13.8 % (11.6-14.6); RBC Distribution Width SD 46.7 fl (35.1-43.9); Red Blood Count 4.08 M/mm3 (4.2-5.4); White Blood Count 6.1 K/mm3 (4.4-11.0)
[2023-01-01 12:45] LABS: Anion Gap 3 (5-15); BUN 14 mg/dL (7-18); BUN/Creat Ratio 11.8 RATIO (10-20); Chloride 109 mmol/L (98-107); Creatinine, Serum 1.19 mg/dL (0.55-1.02); EST Glomerular Filtration Rate 46 mL/min (>60); Est Glom Filt Rate - Afr Amer 56 mL/min (>60); Glucose 90 mg/dL (74-106); Potassium 3.9 mmol/L (3.5-5.1); Sodium Level 141 mmol/L (136-145)
== END | disposition home or self-care (01) ==
LOC: MFPLAB 11:10
PROVIDERS: PCP Family Medicine; Visit Provider Family Medicine
DX: R26.81 Unsteadiness on feet (principal)
CPT/HCPCS: 36415; 80048; 85025

== ENCOUNTER → 2023-06-07 | Outpatient (CLI) | payer MEDICARE, BC, SELFPAY ==
--- OUTSIDE RECORDS SUMMARY | 2023-06-07 12:26 | XMS RPT_ITS | CCD ---
Author Name Unknown Address [address] [place] [address] Organization [facility] Care Team Providers Care Frame Operator Name Role Phone JEANNINE STRATTON Unavailable Unavail able JOSE A WALSH Unavailable Unavai omid FRANCOIS, PHYSICIAN Unavailable Unavailable TALI FELDMAN Unavailable Unavailable TALI FELDMAN Unavailable Unavailable Poli Jerez Unavailable Unavailable Unavailable Primary Care Provider Valente Workman MD Unavailable [phone] Allergies Allergy Classification Reported Allergen(s) Allergy Type Date of Onset Reaction(s) Facility (3 sources) alendronate; Translations: [ALENDRONATE SODIUM] Drug Allergy 8 [facility], Unknown [facility] (3 sources) escitalopram; Translations: [ESCITALOPRAM] Drug Allergy 8 [facility] (3 sources) FLUoxetine; Translations: [FLUOXETINE HCL] Drug Allergy 8 [facility] (3 sources) Latex; Translations: [LATEX] Propensity to adverse reactions to drug (disorder) 7 [facility] (3 sources) lisinopril; Translations: [LISINOPRIL] Drug Allergy 6 [facility], Unknown [facility] (3 sources) losartan; Translations: [LOSARTAN POTASSIUM] Drug Allergy 6 [facility], Other (See Comments) [facility] (3 sources) PARoxetine; Translations: [PAROXETINE HCL] Drug Allergy 8 [facility] (3 sources) venlafaxine; Translations: [VENLAFAXINE HCL] Drug Allergy 8 [facility] (3 sources) AMOXICILLIN-POT CLAVULANATE; Translations: [AMOXICILLIN-PO T CLAVULANATE] Propensity to adverse reactions to drug (disorder) 8 [facility] Medications Current Medications Medication Drug Class(es) Dates Sig (Normalized) Sig (Original) escitalopram 10 mg oral tablet (1 source) Serotonin Reuptake Inhibitor Start: 11-25-2016 take 5 mg by mouth once daily escitalopram oxalate (LEXAPRO) 10 MG tablet Take 5 mg by mouth daily. 11 11/25/2016 Active Completed/Discontinued Medications Medication Drug Class(es) Dates Sig (Normalized) Sig (Original) 12 hr buPROPion hydrochloride 150 mg extended release oral tablet (2 sources) Aminoketone Start: 01-23-2020 BUPROPION HCL ER (SR) 150 MG [id number] 1 tablet twice daily BUPROPION HCL [id number] Arline Sevilla SQL SSRS SSIS DEVELOPER Problems Active Problems Problem Classification Problem Date Documented Da te Episodic/Chronic Essential hypertension (2 sources) Essential hypertension; Translations: [Hypertensive disorder] Onset: 01-21-2017 01-21-2017 Chronic Other acquired deformities (1 source) Scoliosis of lumbar spine; Translations: [Scoliosis, unspecified] Onset: 01-26-2020 01-26-2020 Chronic Other acquired deformities (1 source) Spondylolisthesis; Translations: [Spondylolisthesis , lumbar region] Onset: 01-26-2020 01-26-2020 Chronic Spondylosis; intervertebral disc disorders; other back problems (1 source) Spinal stenosis; Translations: [Spinal stenosis, site unspecified] Onset: 01-26-2020 01-26-2020 Episodic Spondylosis; intervertebral disc disorders; other back problems (1 source) Stenosis of lumbar vertebral foramen; Translations: [Spinal stenosis, lumbar region without neurogenic claudication] Onset: 01-26-2020 01-26-2020 Past or Other Problems Problem Classification Problem Date Documented Date Episodic/Chronic Complication of device; implant or graft (1 source) Dislocated intraocular lens Episodic Medical examination/evaluatio n (2 sources) Encounter for other preprocedural examination; Translations: [Encounter for other preprocedural examination] Onset: 01-21-2017 Episodic Other infections; including parasitic (2 sources) History of hepatitis B; Translations: [History of hepatitis B] Onset: 01-21-2017 01-21-2017 Episodic Unclassified (1 source) Encounter for screening for malignant neoplasm of colon; Translations: [Encounter for screening for malignant neoplasm of colon] Onset: 12-30-2016 Episodic Unclassified (1 source) Patient encounter status Unclassified (1 source) Problem Results Test Name Value Interpretation Reference Range Facil ity Vital Signs Date Time Vital Sign Value Performing Clinician Facility 01-21-2017 09:15-0400 BMI (Body Mass Index) 23.63 kg/m2 Jeannine Stratton [facility] Work Phone: 01-21-2017 09:15-0400 BP Diastolic 77 mm[Hg] Jeannine Stratton [facility] Work Phone: 01-21-2017 09:15-0400 BP Systolic 130 mm[Hg] Jeannine Stratton [facility] Work Phone: 01-21-2017 09:15-0400 Height 149.9 cm Jeannine Stratton [facility] Work Phone: 01-21-2017 09:15-0400 Pulse (Heart Rate) 72 /min Jeannnie Stratton [facility] Work Phone: 01-21-2017 09:15-0400 Pulse Oximetry 97 % Jeannine Stratton [facility] Work Phone: 01-21-2017 09:15-0400 Respiratory Rate 12 /min Jeannine Stratton [facility] Work Phone: 01-21-2017 09:15-0400 Weight 53.07 kg Jeannine Stratton [facility] Work Phone: NEGATED: Highlighted [id number] 13:50-0400 BMI (Body Mass Index) 27.06 kg/m2 Mar Darrian AT [facility] Work Phone: NEGATED: Highlighted [id number] 13:50-0400 Body weight 58.51 kg Mar Darrian AT [facility] Work Phone: NEGATED: Highlighted [id number] 13:50-0400 Body weight 59 kg Mar Darrian AT [facility] Work Phone: NEGATED: Highlighted [id number] 13:50-0400 Height 147.32 cm Mar Darrian AT [facility] Work Phone: NEGATED: Highlighted [id number] 13:50-0400 Height 147 cm Mar Darrian AT [facility] Work Phone: Encounters Encounter Date Encounter Type Care Provider Facility Start: 01-26-2020 End: 01-26-2020 Patient encounter procedure Valente Yee MD Work Phone: [facility] Work Phone: Start: 05-12-2018 Patient encounter procedure Poli Jerez Facility:[facility] Start: 01-21-2017 Ambulatory JEANNINE STRATTON [facility] Amb[facility] Start: 01-21-2017 End: 01-21-2017 Office outpatient new 30 minutes Jeannine Stratton Work Phone: [facility] Procedures Date Procedure Procedure Detail Performing Clinician Start: 01-26-2020 End: 01-26-2020 Blood pressure screening not performed - reason not given Valente Yee MD Work Phone: Start: 01-26-2020 End: 01-26-2020 BMI documented as above normal parameters - follow-up documented Valente Yee MD Work Phone: Start: 01-26-2020 End: 01-26-2020 Documentation of current medications Valente Yee MD Work Phone: Start: 01-26-2020 End: 01-26-2020 Pain assessment not documented - reason not given Valente Yee MD Work Phone: Start: 01-26-2020 End: 01-26-2020 Tobacco non-user Valente Yee MD Work Phone: NEGATED: Highlighted rowStart: 01-26-2020 End: 01-26-2020 Documentation of current medications Mar Darrian AT Plan of Treatment Date Care Activity Detail Author Start: 01-26-2020 End: 01-26-2020 Appointment Appointment [facility] Work Phone: Start: 01-22-2017 SEQUENTIAL INFLUENZA VACCINE (#1) SEQUENTIAL INFLUENZA VACCINE (#1) [facility] Work Phone: Start: 2006 PNEUMOCOCCAL VACCINE AGE 65+ (1 of 2 - PCV13) PNEUMOCOCCAL VACCINE AGE 65+ (1 of 2 - PCV13) [facility] Work Phone: Start: 2001 Zoster vaccine hzv live for subcutaneous use ZOSTER VACCINE [facility] Work Phone: Start: 1941 DEXA SCAN DEXA SCAN [facility] Work Phone: Start: 1941 TETANUS EVERY 10 YR TETANUS EVERY 10 YR [facility] Work Phone: Payers Date Payer Category Payer Medicare [id number] Social History Date Type Detail Facility Start: 01-21-2017 Tobacco smoking status NHIS Never smoker [facility] Work Phone: Sex Assigned At Not on file [facility] Work Phone: NEGATED: Highlighted rowStart: 01-26-2020 End: 01-26-2020 Alcohol use Alcohol use [facility] Work Phone: NEGATED: Highlighted rowStart: 01-26-2020 End: 01-26-2020 Details of drug misuse behavior Details of drug misuse behavior [facility] Work Phone: NEGATED: Highlighted rowStart: 01-26-2020 End: 01-26-2020 How many days of moderate to strenuous exercise, like a brisk walk, did you do in the last 7 days? How many days of moderate to strenuous exercise, like a brisk walk, did you do in the last 7 days? [facility] Work Phone: NEGATED: Highlighted rowStart: 01-26-2020 End: 01-26-2020 Assertion Never smoker [facility] Work Phone: Summary Purpose Family History No Family History Records FoundNo Family History Records FoundNo Family History Records FoundThere may be information available, but it has not been provided by the sender. Advance Directives No Advanced Directives Records FoundNo Advanced Directives Records FoundNo Advanced Directives Records FoundThere may be information available, but it has not been provided by the sender. Reason for Referral Status Reason Specialty Diagnoses / Procedures Referred By Contact Referred To Contact Pending Review Primary Care Diagnoses Pre-op evaluation Jose A Walsh MD [address] [place] [address] [facility] [address] [place] [address] History of Present Illness * Jeannine Stratton MD - 01/21/2017 9:35 AM EDT Formatting of this note may be different from the original. HISTORY Patient Name: Radha Malcolm Date of Exam: 01/21/2017 Date of Surgery: 01/21/17 Diagnosis: left diplacement of intraocular lens Reason for visit/consultation: Medical risk stratification for same day surgery History of current illness: Radha Malcolm is a 77 y.o. female who presents for preoperative medical risk stratification prior to eye surgery at the request of . Pt presents with a recenthistory of decreased vision, which has worsened over the past few days. Her medical conditions include: HTN Patient Active Problem List Diagnosis SNOMED CT(R) Hypertension HYPERTENSIVE DISORDER History of hepatitis B HISTORY OF HEPATITIS B Past Medical History: Diagnosis Date Hypertension Type of anesthesia: Regional Anesthesia History: Yes, without complications Past Surgical History: Procedure Laterality Date HYSTERECTOMY Allergies Allergen Reactions Alendronate Sodium Unknown Amoxicillin-Pot Clavulanate *Penicillins* made mouth very tender Escitalopram Decreased Libido, Sexual dysfunction Fluoxetine Hcl Sexual Dysfunction Lisinopril Unknown Losartan Potassium Other (See Comments) Cough Paroxetine Hcl Numb Venlafaxine Hcl bloating, sexual dysfunction Review of Systems Constitutional: Negative for chills, diaphoresis, fatigue and fever. HENT: Negative for congestion, ear pain, hearing loss, postnasal drip, rhinorrhea, sinus pressure, sneezing, sore throat, tinnitus, trouble swallowing and voice change. Eyes: Positive for visual disturbance. Negative for photophobia, pain, discharge, redness and itching. Respiratory: Negative for cough, chest tightness, shortness of breath and wheezing. Cardiovascular: Negative for chest pain, palpitations and leg swelling. Gastrointestinal: Negative for abdominal distention, abdominal pain, blood in stool, constipation, diarrhea, nausea and vomiting. Endocrine: Negative for cold intolerance, heat intolerance, polydipsia, polyphagia and polyuria. Genitourinary: Negative for difficulty urinating, dysuria, flank pain, frequency, hematuria and urgency. Musculoskeletal: Negative for arthralgias, back pain, gait problem, joint swelling and myalgias. Skin: Negative for color change, pallor, rash and wound. Allergic/Immunologic: Negative for environmental allergies and food allergies. Neurological: Negative for dizziness, tremors, syncope, facial asymmetry, speech difficulty, weakness, light-headedness, numbness and headaches. Hematological: Negative for adenopathy. Does not bruise/bleed easily. Psychiatric/Behavioral: Negative for agitation, confusion, decreased concentration and sleep disturbance. The patient is not nervous/anxious. Social History Social History Substance Use Topics Smoking status: Never Smoker Smokeless tobacco: Never Used Alcohol use Not on file History Drug Use Not on file Marital Status: History reviewed. No pertinent family history. Current Outpatient Prescriptions Medication Sig Dispense Refill buPROPion (WELLBUTRIN SR) 150 MG 12 hr tablet Take 150 mg by mouth 2 (two) times a day. 11 escitalopram oxalate (LEXAPRO) 10 MG tablet Take 5 mg by mouth daily. 11 hydroCHLOROthiazide (HYDRODIURIL) 12.5 MG tablet Take 12.5 mg by mouth daily. 3 No current facility-administered medications for this visit. PHYSICAL Patient Name: Radha Malcolm Age: 77 y.o. Physical Exam Constitutional: She is oriented to person, place, and time. She appears well- developed and well-nourished. HENT: Head: Normocephalic and atraumatic. Eyes: Conjunctivae and EOM are normal. Pupils are equal, round, and reactive to light. Neck: Normal range of motion. Neck supple. Cardiovascular: Normal rate, regular rhythm, normal heart sounds and intact distal pulses. Pulmonary/Chest: Effort normal and breath sounds normal. Abdominal: Soft. Bowel sounds are normal. Musculoskeletal: Normal range of motion. Neurological: She is alert and oriented to person, place, and time. She has normal reflexes. No cranial nerve deficit. Skin: Skin is warm and dry. Psychiatric: She has a normal mood and affect. Her behavior is normal. Judgment and thought contentnormal. EKG Results: NSR, nl intervals Results for orders placed or performed in visit on 01/21/17 POC Potassium Result Value Ref Range Potassium 3.7 3.5 - 5.1 mmol/L ECG 12 Lead Result Value Ref Range Atrial Rate Ventricular Rate P-R Interval QRS Duration Q-T Interval Q-T Interval (corrected) QTC Calculation (Bezet) P [place] R [place] T [place] IMPRESSION/PLAN: 77 yr WF presents for preop eval for left eye surgery. She has a hx of HTN, which is well controlled on medication. Risk factors for surgery include: Age, HTN Patient is at higher risk for falls due to vision impairment- fall risk precautions were discussed with patient including turning on lights and securing carpet edges. Preoperative recommendations: I reviewed the patient's pertinent medical history and medications. No additional recommendations or changes are warranted prior to her scheduled surgery today. Risk Assessment: The patient is currently in a medically optimal state and the risk of surgery is low at this time. Questions regarding her medical issues were answered and discussed. Postoperative recommendations: Patient was instructed to continue her current medical regimen following surgery, unless instructed otherwise by her surgeon. The patient will follow up with her PCP for any additional medical concerns. This patient has an acceptable cardiac risk for the intended procedure, it is my professional opinion that the patient does not have any medical condition at this present time that significantly increase the risk for an adverse outcome. Thank you for the opportunity to evaluate your patient. Please feel free to contact our office withany questions. A copy of this evaluation was provided to the referring physician. in this encounterThere may be information available, but it has not been provided by the sender. Assessments There may be information available, but it has not been provided by the sender. Diagnosis Pre-operative examination - Primary Unspecified pre-operative examination Dislocated intraocular lens, initial encounter Essential hypertension Unspecified essential hypertension History of hepatitis B Personal history of other infectious and parasitic disease Chief Complaint Chief Complaint Description Start Date lower back pain Preliminary chief co mplaint data, not yet signed by the author as of Instructions Instruction Description Start Date CompletedPatient advised to follow-up with Primary Care Physician for BMI management. Review of System There may be information available, but it has not been provided by the sender. Additional Source Comments INFORMATION SOURCE (unrecogn ized section and content) DATE CREATED AUTHOR AUTHOR'S ORGANIZ ATION 11/17/2017 [facility] DATE CREATED AUTHOR AUTHOR'S ORGANIZ ATION 05/14/2018 [facility] Reason for Visit (unrecogniz ed section and content) Status Reason Specialty Diagnoses / Procedures Referred By Contact Referred To Contact Pending Review Primary Care Diagnoses Pre-op evaluation Jose A Walsh MD [address] [place] [address] [facility] [address] [place] [address] Reason For Visit Description Start Date New - 1st visit with practice Preliminary reason f or visit data, not yet signed by the author as of lower back pain FOR RECORDS PERTAINING TO PATIENTS WHO ARE OR HAVE BEEN ENROLLED IN A CHEMICAL DEPENDENCY/SUBSTANCEABUSE PROGRAM, SOME INFORMATION MAY BE OMITTED. This clinical summary was aggregated from multiple sources. Caution should be exercised in using it in the provision of clinical care. This summary normalizes information from multiple sources, and as a consequence, information in this document may materially change the coding, format and clinical context of patient data. In addition, data may be omitted in some cases. CLINICAL DECISIONS SHOULD BE BASED ON THE PRIMARY CLINICAL RECORDS. [employer] provides no warranty or guarantee of the accuracy or completeness of information in this document.
[2023-06-07 15:16] LABS: Absolute Lymphocyte Count 2.22 X10^3/uL (0.83-4.51); Absolute Neutrophil Count 3.9 X10^3/uL (2.0-7.7); Basophil# 0.06 X10^3/uL; Basophil% 0.8 % (0-1); Eosinophil# 0.23 X10^3/uL; Eosinophils% 3.2 % (0-5); Lymphocyte # 2.22 X10^3/ul (0.83-4.51); Lymphocyte % 30.8 % (19-41); Mean Corp Hgb Conc 31.6 g/dL (32-36); Mean Corpuscular Hgb 28.3 pg (27.0-32.0); Mean Corpuscular Volume 89.6 fL (81-99); Mean Platelet Vol. 10.1 fl (6.2-12.0); Monocyte# 0.77 X10^3/uL; Monocyte% 10.7 % (0-10); NRBC Flagged by Analyzer 0 % (0-5); Neutrophil # 3.91 X10^3/uL (2.7-7.7); Neutrophil % 54.2 % (47-70); Platelet Count 419 K/mm3 (150-450); RBC Distribution Width CV 13.4 % (11.6-14.6); RBC Distribution Width SD 44.1 fl (35.1-43.9); Red Blood Count 4.24 M/mm3 (4.2-5.4); White Blood Count 7.2 K/mm3 (4.4-11.0)
[2023-06-07 15:38] LABS: Anion Gap 8 (5-15); BUN 24 mg/dL (7-18); BUN/Creat Ratio 15.8 RATIO (10-20); Calcium,Total 9.7 mg/dL (8.5-10.1); Chloride 104 mmol/L (98-107); Creatinine, Serum 1.52 mg/dL (0.55-1.02); EST Glomerular Filtration Rate 35 mL/min (>60); Est Glom Filt Rate - Afr Amer 42 mL/min (>60); Glucose 87 mg/dL (74-106); Potassium 3.5 mmol/L (3.5-5.1); Sodium Level 140 mmol/L (136-145)
== END | disposition home or self-care (01) ==
LOC: MFPLAB 11:51
PROVIDERS: PCP Family Medicine; Visit Provider Family Medicine
DX: R53.81 Other malaise (principal)
CPT/HCPCS: 36415; 80048; 85025

== ENCOUNTER → 2023-06-08 | Outpatient (CLI) | payer MEDICARE, BC, SELFPAY ==
--- OUTSIDE RECORDS SUMMARY | 2023-06-08 12:06 | XMS RPT_ITS | CCD ---
Author Name Unknown Address [address] [place] [address] Organization [facility] Care Team Providers Care [employer] Name Role Phone JEANNINE STRATTON Unavailable Unavail able JOSE A WALSH Unavailable Unavai omid FRANCOIS, PHYSICIAN Unavailable Unavailable TALI FELDMAN Unavailable Unavailable TALI FELDMAN Unavailable Unavailable Poli Jerez Unavailable Unavailable Unavailable Primary Care Provider Valente Workman MD Unavailable [phone] Allergies Allergy Classification Reported Allergen(s) Allergy Type Date of Onset Reaction(s) Facility (3 sources) alendronate; Translations: [ALENDRONATE SODIUM] Drug Allergy 8 AOF, Unknown [facility] Repository (3 sources) escitalopram; Translations: [ESCITALOPRAM] Drug Allergy 8 [facility] Repository (3 sources) FLUoxetine; Translations: [FLUOXETINE HCL] Drug Allergy 8 [facility] Repository (3 sources) Latex; Translations: [LATEX] Propensity to adverse reactions to drug (disorder) 7 [facility] Repository (3 sources) lisinopril; Translations: [LISINOPRIL] Drug Allergy 6 AOF, Unknown [facility] Repository (3 sources) losartan; Translations: [LOSARTAN POTASSIUM] Drug Allergy 6 AOF, Other (See Comments) [facility] Repository (3 sources) PARoxetine; Translations: [PAROXETINE HCL] Drug Allergy 8 [facility] Repository (3 sources) venlafaxine; Translations: [VENLAFAXINE HCL] Drug Allergy 8 [facility] Repository (3 sources) AMOXICILLIN-POT CLAVULANATE; Translations: [AMOXICILLIN-PO T CLAVULANATE] Propensity to adverse reactions to drug (disorder) 8 [facility] Repository Medications Current Medications Medication Drug [...] 01-23-2020 BUPROPION HCL ER (SR) 150 MG [id number] 1 tablet twice daily BUPROPION HCL [id number] Arline Sevilla [employer] Problems Active Problems Problem Classification Problem Date [...] (Body Mass Index) 23.63 kg/m2 Jeannine Stratton [facility] Work Phone: 01-21-2017 09:15-0400 BP Diastolic 77 mm[Hg] Jeannine Stratton [facility] Work Phone: 01-21-2017 09:15-0400 BP Systolic 130 mm[Hg] Jeannine Stratton [facility] Work Phone: 01-21-2017 09:15-0400 Height 149.9 cm Jeannine Stratton [facility] Work Phone: 01-21-2017 09:15-0400 Pulse (Heart Rate) 72 /min Jeannine Stratton [facility] Work Phone: 01-21-2017 09:15-0400 Pulse Oximetry 97 % Jeannine Stratton [facility] Work Phone: 01-21-2017 09:15-0400 Respiratory Rate 12 /min Jeannine Stratton [facility] Work Phone: 01-21-2017 09:15-0400 Weight 53.07 kg Jeannine Stratton [facility] Work Phone: NEGATED: Highlighted [id number] 13:50-0400 BMI (Body Mass Index) 27.06 kg/m2 Mar Darrian [facility] Work Phone: NEGATED: Highlighted [id number] 13:50-0400 Body weight 58.51 kg Mar Darrian AT [facility] Work Phone: NEGATED: Highlighted [id number] 13:50-0400 Body weight 59 kg Mar Darrian AT [facility] Work Phone: NEGATED: Highlighted [id number] 13:50-0400 Height 147.32 cm Mar Darrian AT [facility] Work Phone: NEGATED: Highlighted [id number] 13:50-0400 Height 147 cm Mar Darrian AT [facility] Work Phone: Encounters Encounter Date Encounter Type Care Provider Facility Start: 01-26-2020 End: 01-26-2020 Patient encounter procedure Valente Yee MD Work Phone: [facility] Work Phone: Start: 05-12-2018 Patient encounter procedure Poli Jerez Facility:[facility] Start: 01-21-2017 Ambulatory JEANNINE STRATTON [facility] Start: 01-21-2017 End: 01-21-2017 Office outpatient new 30 minutes Jeannine Stratton Work Phone: [facility] Primary Care Physicians Procedures Date Procedure Procedure [...] Author Start: 01-26-2020 End: 01-26-2020 Appointment Appointment [facility] Work Phone: Start: 01-22-2017 SEQUENTIAL INFLUENZA VACCINE (#1) SEQUENTIAL INFLUENZA VACCINE (#1) [facility] Work Phone: Start: 2006 PNEUMOCOCCAL VACCINE AGE 65+ (1 of 2 - PCV13) PNEUMOCOCCAL VACCINE AGE 65+ (1 of 2 - PCV13) [facility] Work Phone: Start: 2001 Zoster vaccine hzv live for subcutaneous use ZOSTER VACCINE [facility] Work Phone: Start: 1941 DEXA SCAN DEXA SCAN [facility] Work Phone: Start: 1941 TETANUS EVERY 10 YR TETANUS EVERY 10 YR [facility] Work Phone: Payers Date Payer Category Payer Medicare [id number] Social History Date Type Detail Facility Start: 01-21-2017 Tobacco smoking status NHIS Never smoker [facility] Work Phone: Sex Assigned At Not on file [facility] Work Phone: NEGATED: Highlighted rowStart: 01-26-2020 End: 01-26-2020 Alcohol use Alcohol use [facility] Work Phone: NEGATED: Highlighted rowStart: 01-26-2020 End: 01-26-2020 Details of drug misuse behavior Details of drug misuse behavior [facility] Work Phone: NEGATED: Highlighted rowStart: 01-26-2020 End: 01-26-2020 How many days of moderate to strenuous exercise, like a brisk walk, did you do in the last 7 days? How many days of moderate to strenuous exercise, like a brisk walk, did you do in the last 7 days? [facility] Work Phone: NEGATED: Highlighted rowStart: 01-26-2020 End: 01-26-2020 Assertion Never smoker [facility] Work Phone: Summary Purpose Family History No [...] Jose A Walsh MD [address] [place] [address] [facility] [address] [place] [address] History of Present Illness * Jeannine Stratton [...] Q-T Interval (corrected) QTC Calculation (Bezet) P [place] R [place] T [place] IMPRESSION/PLAN: 77 yr WF presents for preop [...] DATE CREATED AUTHOR AUTHOR'S ORGANIZ ATION 11/17/2017 [facility] DATE CREATED AUTHOR AUTHOR'S ORGANIZ ATION 05/14/2018 [facility] Reason for Visit (unrecogniz ed section and content) Status Reason Specialty Diagnoses / Procedures Referred By Contact Referred To Contact Pending Review Primary Care Diagnoses Pre-op evaluation Jose A Walsh MD [address] [place] [address] [facility] [address] [place] [address] Reason For Visit Description Start Date New [...] BE BASED ON THE PRIMARY CLINICAL RECORDS. [employer] provides no warranty or guarantee of the accuracy or completeness of information in this document.
[2023-06-08 12:33] LABS: Color, Urine Yellow (Yellow); Glucose, Dipstick Normal (Normal); Ketone-Dipstick Negative (Negative); Leukocyte Esterase-Dipstick 100 /ul (Negative); Nitrite-Dipstick Negative (Negative); Occult Blood-Urine 25 /ul (Negative); Protein-Dipstick Negative (Negative); Specific Gravity, Urine 1.025 (1.002-1.030); Urine Bilirubin Dipstick Negative (Negative); Urine Clarity Sl. Cloudy (Clear); Urine Urobilinogen Normal (Normal)
== END | disposition home or self-care (01) ==
LOC: MFPLAB 11:21
PROVIDERS: PCP Family Medicine; Visit Provider Family Medicine
DX: F03.90 Unspecified dementia, unspecified severity, without behavioral disturbance, psychotic disturbance, mood disturbance, and anxiety (principal)
CPT/HCPCS: 81002

== ENCOUNTER 2023-10-31 16:29 | Emergency (ER) | payer MEDICARE, BC, SELFPAY ==
[2023-10-31 16:30] VITALS: BP 170/66; PULSE 78; RESP 20; TEMP 36.4; O2SAT 99; BMI 25.2
--- NOTE | 2023-10-31 17:42 | CT_ITS ---
EXAM: CT HEAD WITHOUT INTRAVENOUS CONTRAST CLINICAL INDICATION: head injury TECHNIQUE: Multiple axial images were obtained of the head without intravenous contrast. This CT exam was performed using one or more of the following dose reduction techniques: automated exposure control, adjustment of the mA and/or kV according to patient size, and/or use of iterative reconstruction technique. COMPARISON: No relevant prior studies available. FINDINGS: BRAIN AND EXTRA-AXIAL SPACES: There is enlargement of the ventricular system and cortical sulci. There is hypoattenuation in the periventricular white matter. No intra- or extra-axial hemorrhage. No evidence of acute infarct. No intracranial mass or mass effect. There is preservation of the wagoner/white matter interface. Posterior fossa structures are unremarkable. Basal cisterns are patent. BONES/JOINTS: Unremarkable. No discrete lytic or blastic abnormalities. SOFT TISSUES: There is minimal scalp hematoma over the high posterior calvarium. SINUSES: Unremarkable as visualized. Clear. MASTOID AIR CELLS: Unremarkable. Clear. ORBITS: Visualized globes, extraocular muscles, optic nerves and retrobulbar fat appear unremarkable. CT/Brain/Head without Contrast IMPRESSION: 1. No acute intracranial abnormality. 2. Senescent change with small vessel ischemia. Electronically Signed: Onur Kumar MD at 18:16 EDT ,
--- NOTE | 2023-10-31 17:42 | CT_ITS ---
EXAM: CT CERVICAL SPINE WITHOUT INTRAVENOUS CONTRAST CLINICAL INDICATION: head trauma, pain TECHNIQUE: Helically acquired images were obtained of the cervical spine without intravenous contrast. 2D reformatted images were reviewed. This CT exam was performed using one or more of the following dose reduction techniques: automated exposure control, adjustment of the mA and/or kV according to patient size, and/or use of iterative reconstruction technique. COMPARISON: No relevant prior studies available. FINDINGS: VERTEBRAE: See below. DISCS/SPINAL CANAL/NEURAL FORAMINA: There is disc space narrowing at C4-5, C5-6-7. There is right bony neural foraminal narrowing at C4-5. SOFT TISSUES: Unremarkable. No prevertebral soft tissue swelling. LYMPH NODES: Unremarkable. No cervical adenopathy. LUNG APICES: Unremarkable as visualized. Clear. CT/Spine Cervical without Contras IMPRESSION: 1. No acute osseous abnormalities of the cervical spine. 2. Multilevel degenerative change with disc space narrowing and bony neural foraminal narrowing. Electronically Signed: Onur Kumar MD at 18:17 EDT ,
[2023-10-31] MEDS: Ondansetron ODT 4 MG Tablet PO (17:49)
--- NOTE | 2023-10-31 17:50 | EX.ED.GENINJ ---
HPI History of Present Illness Chief Complaint: Head Injury Informant: patient Narrative Narrative: Patient is an 83-year-old female, not on anticoagulation, presenting with head injury. Patient was at the tennis court when she stumbled and fell backwards. She landed on her buttocks with momentum had her fall backwards further and she hit her head. She did not pass out. She is complaining of a headache in the back of her head. She has just not been feeling well since. She came in for further evaluation. Her is at the bedside. Denies any associated nausea or vomiting. Denies any blurry vision. Denies any numbness or tingling. No other complaints reported at this time. [facility] Medical History Medication reaction Dizziness Hearing loss, left Hearing loss, right Anxiety Depression Chronic pain Osteoporosis Hepatitis Non-smoker Asthma History of frequent urinary tract infections Hyperlipidemia Hypertension Home Medications ?Medication ?Instructions ?Recorded ?Last Taken ?Type hydrochlorothiazide 12.5 mg capsule 12.5 mg PO DAILY BLOOD PRESSURE 06/10/18 03/12/22 History bupropion HCl 300 mg 24 hr tablet, 300 mg PO DAILY mental health 03/12/22 03/12/22 History extended release nosaaurioant-Yc-ussz-minerals 27 1 tab PO DAILY SUPPLEMENT 03/12/22 03/11/22 History mg-0.4 mg tablet aspirin 81 mg chewable tablet 81 mg PO BREAKFAST 30 days #30 tabs 03/14/22 Unknown Rx ondansetron 4 mg disintegrating 4 mg PO Q8H PRN PRN Nausea #10 tabs 10/31/23 Unknown Rx tablet Allergy/AdvReac Type Severity Reaction Status Date / Time alendronate sodium (From Allergy GI UPSET Verified 10/31/23 16:32 Fosamax) amoxicillin (From Augmentin) Allergy MADE MOUTH Verified 10/31/23 16:32 VERY TENDER clavulanic acid (From Allergy MADE MOUTH Verified 10/31/23 16:32 Augmentin) VERY TENDER escitalopram (From Lexapro) Allergy DECREASED Verified 10/31/23 16:32 LIBIDO, SEXUAL DYSFUNCTION fluoxetine (From Prozac) Allergy SEXUAL Verified 10/31/23 16:32 DYSFUNCTION latex Allergy Rash Verified 10/31/23 16:32 lisinopril Allergy COUGH Verified 10/31/23 16:32 paroxetine (From Paxil) Allergy NUMB Verified 10/31/23 16:32 venlafaxine (From Effexor) Allergy BLOATING, Verified 10/31/23 16:32 SEXUAL DYSFUNCTION Surgical History History of tonsillectomy History of appendectomy History of hysterectomy Social History Smoking Status: Never smoker ROS ROS ED Constitutional Constitutional ED: Reports other Details: Generalized malaise ; Denies chills or fever(s) Eyes Eyes: Denies blurry vision or change in vision ENT ENT ED: Denies ear pain or rhinorrhea Cardiovascular Cardiovascular: Denies chest pain Respiratory/Chest Respiratory/Chest: Denies dyspnea Gastrointestinal Gastrointestinal: Denies abdominal pain, nausea or vomiting Musculoskeletal Musculoskeletal: Denies arthralgias, back pain or myalgias Integumentary Denies Abrasions or rash Neurologic Neurologic: Reports headache(s); Denies paresthesias or weakness Psychiatric Psychiatric: Reports anxiety Hematologic/Lymphatic Hematologic/Lymphatic: Denies easy bleeding or easy bruising EXAM Physical Exam Const Vital Signs: 10/31/23 16:30 10/31/23 17:16 10/31/23 19:11 Temperature 97.6 F L 98.1 F Temperature Source Temporal Pulse Rate 78 91 Respiratory Rate 20 H 16 Respiratory Effort Normal Non-Labored Respiratory Depth Normal Respiratory Pattern Normal Blood Pressure 170/66 H 156/78 H Blood Pressure Mean 100 104 Pulse Ox 99 95 Oxygen Delivery Method Room Air Positive well nourished and well developed General Appearance ED: well developed and NAD HEENT Reports TM's clear HEENT Narrative: No signs of basilar skull fracture. In the posterior scalp there is a small area of a cephalhematoma with no associated laceration or palpable skull fracture. There is no associated bleeding. Nose: Negative for septum abnormal Tympanic Membrane ED: Yes TM's clear Eyes EOMs intact bilaterally General Eye ED: Yes other Other Details: Pupils equally reactive. Left pupil is approximately 1 mm larger than the right. Neck full ROM General: Negative for tenderness Chest Wall inspection of chest normal and palpation of chest normal Resp normal respiratory effort and clear to auscultation bilaterally Cardio regular rhythm Rate: regular rate GI non-tender Back/Spine normal to inspection and no thoracic nor lumbar tenderness Extremity normal to inspection and full ROM General Extremety ED: Negative for deformity or tenderness General Extremity: Negative for deformity Neuro oriented x3, CN's II-XII intact bilaterally, moves all extremities, no focal motor deficits and no sensory deficits noted Psych thought process normal Psych Narrative: Anxious but otherwise acting appropriately Skin no rashes or lesions noted and no wounds MDM MDM MDM Narrative Medical decision making narrative: Patient evaluated for closed head injury. She fell backwards. Seems like a mechanical fall I do not think requires workup for the cause of her fall. She was wearing new shoes today and thinks he might of stuck on the tennis court. Differential diagnosis includes was not limited to skull fracture, intracranial hemorrhage, concussion, cervical spine fracture and cephalhematoma. CT of the brain and cervical spine is obtained which is negative for any acute process. Patient is initially given dose of Zofran and then Tylenol in the emergency room. On repeat evaluation she states she is feeling better. Imaging does not show any acute traumatic process. Patient is given a p.o. challenge and ambulate in the emergency room. She be discharged home with a prescription for Zofran and instructions alternate ibuprofen and Tylenol as needed for headache. Given concussion/close injury instructions. Encouraged to follow-up with primary care doctor as needed. Patient and significant other verbalized agreement understand this plan. Discharged home in stable condition. Radiography Diagnostic Testing: Clinical Impression(s) from Imaging Studies Brain CT 10/31/23 17:42 IMPRESSION: 1. No acute intracranial abnormality. 2. Senescent change with small vessel ischemia. Electronically Signed: Onur Kumar MD at 18:16 EDT , Cervical Spine CT 10/31/23 17:42 IMPRESSION: 1. No acute osseous abnormalities of the cervical spine. 2. Multilevel degenerative change with disc space narrowing and bony neural foraminal narrowing. Electronically Signed: Onur Kumar MD at 18:17 EDT , Discharge Plan Triage Chief Complaint: Head Injury ED Provider: Doreen Ferguson Dx/Rx/DC Orders Clinical Impression: Head injury, Hematoma of occipital region of scalp Instructions: ED Concussion, ED Head Injury (Adult) Prescriptions: New ondansetron 4 mg tablet,disintegrating 4 mg PO Q8H PRN PRN (Reason: Nausea) Qty: 10 0RF No Action hydrochlorothiazide 12.5 mg capsule 12.5 mg PO DAILY izeeiodrgqmg-Cw-aeri-minerals 27-0.4 mg Tablet 1 tab PO DAILY bupropion HCl 300 mg tablet extended release 24 hr 300 mg PO DAILY Patient Comments: Take one tablet by mouth once daily aspirin 81 mg Tablet,Chewable 81 mg PO BREAKFAST 30 Days Qty: 30 0RF Primary Care Provider: Franklin Díaz Referrals: Franklin Díaz MD [Primary Care Provider] - Activity Restrictions/Additional Instructions: Alternate ibuprofen and Tylenol as needed for headache/pain. Thankfully the CT of your brain does not show any bleeding around the brain or skull fracture. Your neck CT did not show any acute fractures or other acute abnormalities. Patient drinking of fluids. Return to the ER if you have a progression or worsening of your symptoms or further concerns. Print Language: Slovenian
[2023-10-31] MEDS: Acetaminophen 500 MG Tablet PO (18:36)
[2023-10-31 19:11] VITALS: BP 156/78; PULSE 91; RESP 16; TEMP 36.7; O2SAT 95
== END 2023-10-31 19:18 | disposition home or self-care (01) ==
PROVIDERS: Emergency Provider Emergency Medicine; PCP Family Medicine; Visit Provider Emergency Medicine
DX: S00.03XA Contusion of scalp, initial encounter (principal); W01.0XXA Fall on same level from slipping, tripping and stumbling without subsequent striking against object, initial encounter; R51.9 Headache, unspecified; Y92.312 Tennis court as the place of occurrence of the external cause; Z79.899 Other long term (current) drug therapy; J45.909 Unspecified asthma, uncomplicated; E78.5 Hyperlipidemia, unspecified; Z79.82 Long term (current) use of aspirin; F41.9 Anxiety disorder, unspecified; F32.A Depression, unspecified
CPT/HCPCS: 70450; 72125; 99283

== ENCOUNTER → 2024-03-15 | Outpatient (CLI) | payer MEDICARE, BC, SELFPAY ==
[2024-03-15 18:25] LABS: ALB/GLOB Ratio 0.9 RATIO (0.9-2.4); AST(SGOT) 18 U/L (15-37); Alanine Aminotransfer ALT/SGPT 19 U/L (13-56); Albumin, Serum 3.4 g/dL (3.2-5.0); Alkaline Phosphatase 79 U/L (45-117); Anion Gap 5 (5-15); BUN 15 mg/dL (7-18); BUN/Creat Ratio 13.4 RATIO (10-20); Calcium,Total 9.1 mg/dL (8.5-10.1); Chloride 110 mmol/L (98-107); Cholesterol 169 mg/dL (200); Creatinine, Serum 1.12 mg/dL (0.55-1.02); EST Glomerular Filtration Rate 49 mL/min (>60); Est Glom Filt Rate - Afr Amer 60 mL/min (>60); Globulin 3.8 g/dL (2.2-4.2); Glucose 90 mg/dL (74-106); High Density Lipoprotein 62 mg/dL; Potassium 3.7 mmol/L (3.5-5.1); Protein, Total 7.2 g/dL (6.4-8.2); Sodium Level 142 mmol/L (136-145); Triglycerides 127 mg/dL; Very Low Density Lipoprotein 25 mg/dL (5-40)
== END | disposition home or self-care (01) ==
LOC: MFPLAB 14:25
PROVIDERS: PCP Family Medicine; Visit Provider Family Medicine
DX: I10 Essential (primary) hypertension (principal)
CPT/HCPCS: 36415; 80053; 80061

== ENCOUNTER → 2024-04-12 | Outpatient (CLI) | payer MEDICARE, BC, SELFPAY ==
--- NOTE | 2024-04-12 09:41 | RAD_ITS ---
STUDY: X-RAY - LEFT KNEE REASON FOR EXAM: Female, 84 years old. KNEE PAIN TECHNIQUE: 4 views of the left knee. COMPARISON: None. FINDINGS: Normal visualized distal femur. Normal visualized proximal tibia and fibula. Normal proximal tibiofibular articulation. There is no demonstrated fracture. There is mild degenerative arthrosis of the medial femorotibial compartment. There is mild degenerative arthrosis of the lateral femorotibial compartment. There is mild degenerative arthrosis of the patellofemoral articulation. The soft tissue structures are unremarkable. RAD/Knee 4 or More Views IMPRESSION: Mild tricompartment degenerative arthrosis. No demonstrated fracture. Electronically Signed: Hermes Davis MD at 16:05 EST ,
== END | disposition home or self-care (01) ==
LOC: MTRAD 09:40
PROVIDERS: PCP Family Medicine; Referring Provider Family Medicine; Visit Provider Family Medicine
DX: M25.562 Pain in left knee (principal)
CPT/HCPCS: 73564

== ENCOUNTER → 2024-06-15 | Outpatient (CLI) | payer MEDICARE, BC, SELFPAY ==
[2024-06-15 18:22] LABS: Anion Gap 5 (5-15); BUN 15 mg/dL (7-18); BUN/Creat Ratio 12.1 RATIO (10-20); Calcium,Total 9.2 mg/dL (8.5-10.1); Chloride 108 mmol/L (98-107); Creatinine, Serum 1.24 mg/dL (0.55-1.02); EST Glomerular Filtration Rate 44 mL/min (>60); Est Glom Filt Rate - Afr Amer 53 mL/min (>60); Glucose 85 mg/dL (74-106); Potassium 3.8 mmol/L (3.5-5.1); Sodium Level 140 mmol/L (136-145)
== END | disposition home or self-care (01) ==
PROVIDERS: PCP Family Medicine; Referring Provider Family Medicine; Visit Provider Family Medicine
DX: I10 Essential (primary) hypertension (principal)
CPT/HCPCS: 36415; 80048

== ENCOUNTER → 2024-11-20 | Outpatient (CLI) | payer MEDICARE, BC, SELFPAY ==
[2024-11-20 15:40] LABS: ALB/GLOB Ratio 1.3 RATIO (0.9-2.4); AST(SGOT) 24 U/L (<=31); Alanine Aminotransfer ALT/SGPT 15 U/L (<=34); Albumin, Serum 4.1 g/dL (3.4-4.8); Alkaline Phosphatase 75 U/L (35-104); Anion Gap 14 (5-15); BUN 18 mg/dL (4-19); BUN/Creat Ratio 12.9 RATIO (10-20); Calcium,Total 9.3 mg/dL (7.6-11.0); Carbon Dioxide 22.6 mmol/L (21.0-32.0); Chloride 104 mmol/L (98-108); Cholesterol 183 mg/dL (<=200); Creatinine, Serum 1.37 mg/dL (0.70-1.20); EST Glomerular Filtration Rate 38 (>60); Globulin 3.1 g/dL (2.2-4.2); Glucose 104 mg/dL (70-99); High Density Lipoprotein 55 mg/dL; Low Density Lipoprotein Calc. 104 mg/dL; Potassium 3.6 mmol/L (3.3-5.1); Protein, Total 7.1 g/dL (5.9-8.4); Sodium Level 141 mmol/L (133-145); Triglycerides 119 mg/dL; Very Low Density Lipoprotein 24 mg/dL (5-40); cholesterol:hdl ratio screen 3.33
== END | disposition home or self-care (01) ==
LOC: MFPLAB 11:32
PROVIDERS: PCP Family Medicine; Referring Provider Family Medicine; Visit Provider Family Medicine
DX: I10 Essential (primary) hypertension (principal)
CPT/HCPCS: 36415; 80053; 80061

== ENCOUNTER 2025-04-21 12:18 | Emergency (ER) | payer MEDICARE, BC, SELFPAY ==
[2025-04-21 12:20] VITALS: BP 130/98; PULSE 94; RESP 18; TEMP 35.8; O2SAT 94
--- NOTE | 2025-04-21 12:27 | RAD_ITS ---
PROCEDURE: TIBIA FIBULA 2 VIEWS 04/21/2025 REASON FOR EXAM: PAIN, FALL TECHNIQUE: Procedure Code: RADTF Modality: DX Procedure: TIBIA FIBULA 2 VIEWS Laterality: Left COMPARISON: None FINDINGS: Bones: No fracture. No suspicious bone lesion. Joints: Normal alignment at the knee and ankle. Soft tissues: Soft tissues are unremarkable. Other: None RAD/Tibia & Fibula 2 Views IMPRESSION: NEGATIVE TIBIA AND FIBULA Reading Location: [facility]
--- NOTE | 2025-04-21 12:27 | RAD_ITS ---
PROCEDURE: KNEE 1 OR 2 VIEWS 04/21/2025 REASON FOR EXAM: FALL, KNEE PAIN, LAC TECHNIQUE: Procedure Code: RADK Modality: DX Procedure: KNEE 1 OR 2 VIEWS Laterality: Left COMPARISON: 04/12/2024 FINDINGS: Bones: No fracture. No suspicious bone lesion. Joints: Moderate degenerative changes. Effusion: No effusion. Soft tissues: Skin defect is noted at the superior border level of the patella likely representing described laceration. No radiopaque foreign body. RAD/Knee 1 or 2 Views IMPRESSION: Skin defect is noted at the superior border level of the patella likely represe nting described laceration. No radiopaque foreign body. No acute osseous abnormality. Reading Location: [facility]
[2025-04-21 12:32] VITALS: BMI 26.9
[2025-04-21] MEDS: Lidocaine 2% (20 ml mdv) 20 ML Vial 10 ML INFILT (12:42)
--- OUTSIDE RECORDS SUMMARY | 2025-04-21 12:54 | XMS RPT_ITS | CCD ---
Author Organization [facility] Care Team Providers Care Field Supervisor Name Role Phone ASHIA PATTERSON Unavailable Unavail able NIKITA WALSH Unavailable Unavai lable NO, PHYSICIAN Unavailable Unavailable PHUC FELDMAN Unavailable Unavailable PHUC FELDMAN Unavailable Unavailable Poli Jerez Unavailable Unavailable Unavailable Primary Care Provider Unavailshola Yee MD, Valente White Unavailable Dr. Franklin Díaz Primary Care Provider [phone] Doreen Ferguson Emergency Provider [phone] Jd Woodard Admit Provider 1([facility])[phone] Jd Woodard Attending Provider Dr. Jd Woodard Other Provider Dr. Yulissa Rodriguez Attending Provider Dr. Yulissa Rodriguez Other Provider Dr. Nia Urbina Attending Provider 1([facility])[phone] Franklin Díaz MD Primary Care Provider 1([facility] )[phone] Dr. Franklin Díaz MD Attending Provider Dr. Franklin Díaz MD Referring Provider Franklin Díaz Referring Unavailable Bre, Franklin Attending Unavailable Bre, Franklin Primary Care Unavailable Bre, Franklin Attending Unavailable Bre, Franklin Primary Care Unavailable Bre, Franklin Referring Unavailable Díaz, Franklin Attending Unavailable Díaz, Franklin Primary Care Unavailable Díaz, Franklin Referring Unavailable Díaz, Franklin Attending Unavailable Díaz, Franklin Primary Care Unavailable Allergies Allergy Classification Reported Allergen(s) Allergy Type Date of Onset Reaction(s) Facility (12 sources) alendronate; Translations: [ALENDRONATE SODIUM] Drug Allergy 8 AOF, Unknown, GI UPSET [facility] Repository (12 sources) escitalopram; Translations: [ESCITALOPRAM] Drug Allergy 8 DECREASED LIBIDO, SEXUAL DYSFUNCTION [facility] Repository (3 sources) FLUoxetine; Translations: [FLUOXETINE HCL] Drug Allergy 8 [facility] Repository (12 sources) Latex; Translations: [LATEX] Propensity to adverse reactions to drug (disorder) 7 Rash [facility] Repository (12 sources) lisinopril; Translations: [LISINOPRIL] Drug Allergy 6 AOF, Unknown, COUGH [facility] Repository (3 sources) losartan; Translations: [LOSARTAN POTASSIUM] Drug Allergy 6 AOF, Other (See Comments) [facility] Repository (3 sources) PARoxetine; Translations: [PAROXETINE HCL] Drug Allergy 8 [facility] Repository (3 sources) venlafaxine; Translations: [VENLAFAXINE HCL] Drug Allergy 8 [facility] Repository (3 sources) AMOXICILLIN-POT CLAVULANATE; Translations: [AMOXICILLIN-PO T CLAVULANATE] Propensity to adverse reactions to drug (disorder) 8 [facility] Repository (8 sources) Amoxicillin Drug Allergy 2 MADE MOUTH VERY TENDER [facility] (8 sources) Clavulanate Drug Allergy 2 MADE MOUTH VERY TENDER [facility] (8 sources) FLUoxetine Drug Allergy 2 SEXUAL DYSFUNCTION [facility] (8 sources) PARoxetine Drug Allergy 2 NUMB [facility] (8 sources) venlafaxine Drug Allergy 2 BLOATING, SEXUAL DYSFUNCTION [facility] (1 source) Amoxicillin Drug Allergy 4 [facility] Repository (1 source) Clavulanate Drug Allergy 4 [facility] Repository (1 source) FLUoxetine Drug Allergy 4 [facility] Repository (1 source) PARoxetine Drug Allergy 4 [facility] Repository (1 source) venlafaxine Drug Allergy 4 [facility] Repository Medications Current Medications Medication Drug Class(es) Dates Sig (Normalized) Sig (Original) aspirin 81 mg chewable tablet (15 sources) Platelet Aggregation Inhibitor, Nonsteroidal Anti-inflammatory Drug Start: 03-14-2022 take 1 tablet by mouth at breakfast Aspirin 81 mg Tablet,Chewable Active 81 mg PO WITH BREAKFAST 30 30 0 March 14, 2022 12:00am Start: 03-12-2022 End: 03-14-2022 take 1 tablet by mouth once daily as needed for pain Aspirin 325 mg Tablet Discontinued 325 mg PO DAILY NEEDED as needed for Pain March 12, 2022 12:00am March 14, 2022 9:06am 24 hr buPROPion hydrochloride 300 mg extended release oral tablet (10 sources) Aminoketone Start: 03-12-2022 take 1 tablet by mouth once daily Bupropion Hcl 300 mg tablet extended release 24 hr Active 300 mg PO DAILY March 12, 2022 12:00am mental health Start: 01-23-2020 BUPROPION HCL ER (SR) 150 MG [id number] 1 tablet twice daily BUPROPION HCL [id number] Arline Sevilla LPN Start: 12-15-2016 take 1 tablet by yamel th twice daily buPROPion (WELLBUTRIN SR) 150 MG 12 hr tablet Take 150 mg by mouth 2 (two) times a day. 11 12/15/2016 Active escitalopram 10 mg oral tablet (9 sources) Serotonin Reuptake Inhibitor Start: 11-25-2016 take 5 mg by mouth once daily escitalopram oxalate (LEXAPRO) 10 MG tablet Take 5 mg by mouth daily. 11/25/2016 Active Start: 03-24-2016 End: 06-10-2018 take 1 tablet by mouth once daily Escitalopram Oxalate 5 MG tablet Discontinued 5 mg PO DAILY March 24, 2016 12:00am June 10, 2018 11:29am Qftvrheqjjql-Qw-Tkpu-Mineral s (6 sources) Start: 03-12-2022 take 1 tablet by mouth once daily Gwqseozrlifm-Yx-Vtds-Minerals Active 1 TABLET PO DAILY March 11, 2022 11:00pm Start: 03-12-2022 take 1 tablet by yamel th once daily Nyxhkpqejepd-Xv-Rofx-Minerals Active 1 T ABLET PO DAILY March 12, 2022 12:00am Wqizfwjannog-Mf-Tlal-Mineral s (Women's One Daily) 27-0.4 mg Tablet (1 source) Start: 03-12-2022 take 1 tablet by mouth once daily Tfyfjggpfxcv-Eq-Zebu-Minerals (Women's One Daily) 27-0.4 mg Tablet Active 1 TABLET PO DAILY March 12, 2022 12:00am Jbnznhtrrgve-On-Bndd-Mineral s 27-0.4 mg Tablet (1 source) Start: 03-12-2022 Snsflvffjrqd-Pj-Alzo-Mineral s 27-0.4 mg Tablet Active 1 {tbl} PO DAILY March 12, 2022 12:00am SUPPLEMENT ondansetron 4 mg disintegrating oral tablet (1 source) Seroton in-3 Recepto r Antagon ist Start: 10-31-2023 take 1 tablet by mouth every eight hours as needed for nausea Ondansetron 4 mg tablet,disintegrating Active 4 mg PO EVERY 8 HOURS NEEDED as needed for Nausea October 31, 2023 12:00am Completed/Discontinued Medications Medication Drug Class(es) Dates Sig (Normalized) Sig (Original) acetaminophen 325 mg oral tablet (8 sources) Start: 03-12-2022 End: 03-14-2022 take 1 tablet by mouth once daily as needed for pain Acetaminophen 325 mg Tablet Discontinued 325 mg PO DAILY NEEDED as needed for Pain March 12, 2022 12:00am March 14, 2022 9:06am acetaminophen 325 mg / HYDROcodone bitartrate 5 mg oral tablet (8 sources) Opioid Agonist Start: 03-24-2016 End: 06-10-2018 Hydrocodone-Acetami nophen 1 TABLET tablet Discontinued 0.5 - 1 {tbl} PO EVERY 6 HOURS NEEDED as needed for Pain March 24, 2016 3:19pm June 10, 2018 11:30am causes drowsiness Start: 03-24-2016 End: 06-10-2018 take 1 tablet by mouth every six hours as needed Hydrocodone-Acetaminophen Discontinued 0 .5 - 1 TABLET PO EVERY 6 HOURS NEEDED March 24, 2016 2:19pm June 10, 2018 10:30am causes drowsiness ascorbic acid 500 mg oral tablet (8 sources) Vitamin C Start: 03-24-2016 End: 06-10-2018 take 1 tablet by mouth once daily Ascorbic Acid (Vitamin C) 500 MG tablet Discontinued 500 mg PO DAILY@0800 March 24, 2016 12:00am June 10, 2018 11:29am calcium carbonate 1250 mg chewable tablet (8 sources) Start: 03-24-2016 End: 06-10-2018 take 1 tablet by mouth three times daily Calcium Carbonate 500 MG tablet,chewable Discontinued 500 mg PO THREE TIMES A DAY March 24, 2016 12:00am June 10, 2018 11:29am ferrous sulfate 325 mg delayed release oral tablet (7 sources) Start: 03-14-2022 End: 10-31-2023 take 1 tablet by mouth once daily Ferrous Sulfate 325 mg (65 mg iron) tablet,delayed release (DR/EC) Discontinued 325 mg PO DAILY 30 0 March 14, 2022 12:00am October 31, 2023 7:08pm hydroCHLOROthiazide 12.5 mg oral tablet (10 sources) Thiazide Diuretic Start: 01-23-2020 HYDROCHLOROTHIAZIDE 12.5 MG TABS 1 tablet daily HYDROCHLOROTHIAZIDE [id number] Arline Sevilla LPN Start: 06-10-2018 take 1 capsule by [facility] once daily Hydrochlorothiazide 12.5 mg capsule Active 12.5 mg PO DAILY June 10, 2018 1:00am BLOOD PRESSURE Start: 11-27-2016 [facility] hydroCHLOROthiazide (HYDRODIURIL) 12.5 MG tablet Take 12.5 mg by mouth daily. 3 11/27/2016 Active hydrOXYzine hydrochloride 25 mg oral tablet (1 source) Antihistamine Start: 01-23-2020 HYDROXYZINE HC L 25 MG TABS 1 tablet daily HYDROXYZINE HCL [id number] Arline Sevilla LPN losartan potassium 25 mg oral tablet (8 sources) Angiotensin 2 Receptor Crystal Start: 03-24-2016 End: 06-10-2018 Losartan 25 MG tablet Discontinued 12.5 mg PO DAILY March 24, 2016 12:00am June 10, 2018 11:30am Start: 03-24-2016 End: 06-10-2018 take 12.5 mg by mouth once daily Losartan Discontinued 12.5 MG PO DAILY March 23, 2016 11:00pm June 10, 2018 10:30am 120 actuat mometasone furoate 0.1 mg/actuat metered dose inhaler (1 source) Corticosteroid Start: 01-23-2020 ASMANEX HFA 100 MCG/ACT AERO 2 puffs twice daily MOMETASONE FUROATE [id number] Arline Sevilla [employer] QUEtiapine 50 mg oral tablet (8 sources) Atypical Antipsychotic Start: 03-12-2022 End: 03-14-2022 take 1 tablet by mouth at bedtime Quetiapine 50 mg tablet Discontinued 50 mg PO AT BEDTIME March 12, 2022 12:00am March 14, 2022 9:06am SLEEP sertraline 25 mg oral tablet (8 sources) Serotonin Reuptake Inhibitor Start: 03-24-2016 End: 06-10-2018 Sertraline 25 MG tablet Discontinued 12.5 mg PO DAILY March 24, 2016 12:00am June 10, 2018 11:30am Start: 03-24-2016 End: 06-10-2018 take 12.5 mg by mouth once daily Sertraline Discontinued 12.5 MG PO DAILY March 23, 2016 11:00pm June 10, 2018 10:30am vitamin b12 1 mg extended release oral tablet (8 sources) Vitamin B12 Start: 03-24-2016 End: 06-10-2018 take 1 tablet by mouth once daily Cyanocobalamin (Vitamin B-12) 1,000 MCG tablet extended release Discontinued 1000 ug PO DAILY March 24, 2016 12:00am June 10, 2018 11:29am Problems Active Problems Problem Classification Problem Date Documented Da te Episodic/Chronic Conditions associated with dizziness or vertigo (8 sources) Dizziness; Translations: [Dizziness and giddiness] Episodic Deficiency and other anemia (7 sources) Anemia; Translations: [Anemia, unspecified] 03-12-2022 Episodic Deficiency and other anemia (2 sources) Anemia, unspecified; Translations: [Anemia, unspecified] Episodic E Codes: Adverse effects of medical drugs (8 sources) Adverse reaction to drug; Translations: [Adverse effect of unspecified drugs, medicaments and biological substances, initial encounter] Episodic Essential hypertension (3 sources) Essential hypertension; Translations: [Hypertensive disorder] Onset: 01-21-2017 01-21-2017 Chronic Other acquired deformities (1 source) Scoliosis of lumbar spine; Translations: [Scoliosis, unspecified] Onset: 01-26-2020 01-26-2020 Chronic Other acquired deformities (1 source) Spondylolisthesis; Translations: [Spondylolisthesis, lumbar region] Onset: 01-26-2020 01-26-2020 Chronic Other injuries and conditions due to external causes (1 source) Injury of head; Translations: [Unspecified injury of head, initial encounter] 11-08-2023 Episodic Spondylosis; intervertebral disc disorders; other back problems (1 source) Spinal stenosis; Translations: [Spinal stenosis, site unspecified] Onset: 01-26-2020 01-26-2020 Episodic Spondylosis; intervertebral disc disorders; other back problems (1 source) Stenosis of lumbar vertebral foramen; Translations: [Spinal stenosis, lumbar region without neurogenic claudication] Onset: 01-26-2020 01-26-2020 Superficial injury; contusion (1 source) Hematoma of occipital scalp; Translations: [Contusion of scalp, initial encounter] 11-08-2023 Episodic Transient cerebral ischemia (2 sources) Transient cerebral ischemia; Translations: [Transient cerebral ischemic attack, unspecified] Chronic Past or Other Problems Problem Classification Problem Date Documented Date Episodic/Chronic Complication of device; implant or graft (1 source) Dislocated intraocular lens Episodic Medical examination/evaluatio n (2 sources) Encounter for other preprocedural examination; Translations: [Encounter for other preprocedural examination] Onset: 01-21-2017 Episodic Other infections; including parasitic (2 sources) History of hepatitis B; Translations: [History of hepatitis B] Onset: 01-21-2017 01-21-2017 Episodic Other non-traumatic joint disorders (1 source) Pain in left knee; Translations: [Pain in left knee] Onset: 05-09-2024 Episodic Unclassified (1 source) Encounter for screening for malignant neoplasm of colon; Translations: [Encounter for screening for malignant neoplasm of colon] Onset: 12-30-2016 Episodic Unclassified (1 source) Patient encounter status Unclassified (1 source) Problem Results Test Name Value Interpretation Reference Range Facility Anion gap in Serum or Plasma Ordered By: Franklin Díaz on 11-20-2024 Anion gap [Moles/Vol] 14 mmol/L 5-15 [facility] BUN/creatinine ratioOrdered By: Franklin Díaz on 11-20-2024 Urea nitrogen/Creatinine [Mass ratio] 12.9 mg/mg - [facility] Bilirubin, totalOrdered By: Franklin Díaz on 11-20-2024 Bilirubin [Mass/Vol] 0.30 mg/dL 0.00-1.30 [facility] Calculated very low density lipoprotein (VLDL) cholesterol measurementOrdered By: Franklin Díaz on 11-20-2024 Calculated very low density lipoprotein (VLDL) cholesterol measurement 24 mg/dL 5-40 [facility] Carbon dioxide, total [Moles /volume] in Central venous bloodOrdered By: Franklin Díaz on 11-20-2024 CO2 [Moles/Vol] 22.6 mmol/L 21.0-32.0 [facility] Chloride assayOrdered By: Roque Díaz on 11-20-2024 Chloride [Moles/Vol] 104 mmol/L 98-108 [facility] Comprehensive Metabolic Prof ilon 11-20-2024 Albumin [Mass/Vol] 4.1 g/dL Normal 3.4-4.8 [facility] Comment on above: Performed By: #### L [id number], L500.4100 #### [facility] [address] [place], [address] Albumin/Globulin [Mass ratio] 1.3 {ratio} Normal 0.9-2.4 [facility] Comment on above: Performed By: #### L [id number], L500.4100 #### [facility] [address] [place], [address] ALK PHOS 75 U/L Normal 35-104 [facility] Comment on above: Performed By: #### L [id number], [id number] #### [facility] [address] [place], [address] ALT [Catalytic activity/Vol] 15 U/L Normal <=34 [facility] Comment on above: Performed By: #### L [id number], [id number] #### [facility] [address] [place], [address] AST [Catalytic activity/Vol] 24 U/L Normal <=31 [facility] Comment on above: Performed By: #### L [id number], [id number] #### [facility] [address] [place], [address] Bilirubin [Mass/Vol] 0.30 mg/dL Normal 0.00-1.30 [facility] Comment on above: Performed By: #### L [id number], [id number] #### [facility] [address] [place], [address] BUN/CRE 12.9 RATIO Normal 10-20 [facility] Comment on above: Performed By: #### L [id number], [id number] #### [facility] [address] [place], [address] Calcium [Mass/Vol] 9.3 mg/dL Normal 7.6-11.0 [facility] Comment on above: Performed By: #### L [id number], [id number] #### [facility] [address] [place], [address] Chloride [Moles/Vol] 104 mmol/L Normal 98-108 [facility] Comment on above: Performed By: #### L [id number], [id number] #### [facility] [address] [place], [address] CO2 [Moles/Vol] 22.6 mmol/L Normal 21.0-32.0 [facility] Comment on above: Performed By: #### L [id number], [id number] #### [facility] [address] [place], [address] Creatinine [Mass/Vol] 1.37 mg/dL High 0.70-1.20 [facility] Comment on above: Performed By: #### L 500.4050, [id number] #### [facility] [address] [place], [address] GAP 14 Normal 5-15 [facility] Comment on above: Performed By: #### L [id number], [id number] #### [facility] [address] [place], [address] GFR/1.73 sq M.predicted among non-blacks MDRD (S/P/Bld) [Vol rate/Area] 38 mL/min/{1.73_m2} Low >60 [facility] Comment on above: Result Comment: mL/m in/1.73m2 CKD-EPI Creatinine Equation (2020) Performed By: #### L 500.4050, L500.4100 #### [facility] [address] [place], [address] Globulin (S) [Mass/Vol] 3.1 g/dL Normal 2.2-4.2 [facility] Comment on above: Performed By: #### L [id number], [id number] #### [facility] [address] [place], [address] Glucose [Mass/Vol] 104 mg/dL High 70-99 [facility] Comment on above: Performed By: #### L [id number], [id number] #### [facility] [address] [place], [address] Potassium [Moles/Vol] 3.6 mmol/L Normal 3.3-5.1 [facility] Comment on above: Performed By: #### L 500.4050, [id number] #### [facility] [address] [place], [address] Sodium [Moles/Vol] 141 mmol/L Normal 133-145 [facility] Comment on above: Performed By: #### L 500.4050, [id number] #### [facility] [address] [place], [address] T PROT 7.1 g/dL Normal 5.9-8.4 [facility] Comment on above: Performed By: #### L 500.4050, [id number] #### [facility] [address] [place], [address] Urea nitrogen [Mass/Vol] 18 mg/dL Normal 4-19 [facility] Comment on above: Performed By: #### L 500.4050, [id number] #### [facility] [address] [place], [address] Glomerular filtration rate ( GFR) estimation/1.73 sq m using serum, plasma, or whole bOrdered By: Franklin Díaz on 11-20-2024 GFR/1.73 sq M.predicted among non-blacks MDRD (S/P/Bld) [Vol rate/Area] 38 mL/min/{1.73_m2} Low >60 [facility] Comment on above: mL/min/1.73m2 CKD-EP I Creatinine Equation (2020) LDL calc ser/plasOrdered By: Franklin Díaz on 11-20-2024 Cholesterol in LDL [Mass/Vol] 104 mg/dL [facility] Comment on above: Xmxcxprlel=961-184 m g/dL & Higher Cjjh=499 mg/dL or greater Laboratory - Chemistry and C hemistry - challengeOrdered By: Franklin Díaz on 11-20-2024 AST [Catalytic activity/Vol] 24 U/L <32 [facility] Lipid Profileon 11-20-2024 CHOL:HDL 3.33 Normal [facility] Comment on above: Performed By: #### L 500.4050, [id number] #### [facility] [address] [place], [address] Cholesterol [Mass/Vol] 183 mg/dL Normal <=200 [facility] Comment on above: Result Comment: Chol esterol level, Desirable <200 mg/dL Borderline high cholesterol 200-239 mg/dL High cholesterol >=240 mg/dL Recommendations of the NCEP Adult Treatment Panel for the following risk-cutoff thresholds for the [place] population. Performed By: #### L 500.4050, L500.4100 #### [facility] [address] [place], [address] Cholesterol in HDL [Mass/Vol] 55 mg/dL Normal [facility] Comment on above: Result Comment: Chanel onal Cholesterol Education Program (NCEP) guidelines: <40 mg/dL: Low HDL-cholesterol (major risk factor for CHD) >= 60 mg/dL: High HDL-cholesterol (negative risk factor for CHD) HDL-cholesterol is affected by a number of factors, e.g. smoking, exercise, hormones, sex and age. Performed By: #### L 500.4050, L500.4100 #### [facility] [address] [place], [address] Cholesterol in LDL [Mass/Vol] 104 mg/dL Normal [facility] Comment on above: Result Comment: Bord gdkcis=940-843 mg/dL Higher Jkfg=869 mg/dL or greater Performed By: #### L 500.4050, L500.4100 #### [facility] [address] [place], [address] Cholesterol in VLDL [Mass/Vol] 24 mg/dL Normal 5-40 [facility] Comment on above: Performed By: #### L 500.4050, [id number] #### [facility] [address] [place], [address] Triglyceride [Mass/Vol] 119 mg/dL Normal [facility] Comment on above: Result Comment: The drugs N-Acetylcysteine and Metamizole may falsely depress this assay. Normal range: <150 mg/dL Borderline High: 150-199 mg/dL High: 200-499 mg/dL Very High: >500 mg/dL Performed By: #### L 500.4050, L500.4100 #### [facility] [address] [place], [address] Potassium measurement (mass/ volume)Ordered By: Franklin Díaz on 11-20-2024 Potassium (Unsp spec) [Mass/Vol] 3.6 mmol/L 3.3-5.1 [facility] Screening total cholesterol/ high density lipoprotein (HDL) cholesterol ratioOrdered By: Franklin Díaz on 11-20-2024 Cholesterol.total/Cho lesterol in HDL [Mass ratio] 3.33 {ratio} [facility] Serum creatinine measurement (mass/volume)Ordered By: Franklin Díaz on 11-20-2024 Creatinine [Mass/Vol] 1.37 mg/dL High 0.70-1.20 [facility] Serum globulin measurementOr dered By: Franklin Díaz on 11-20-2024 Globulin (S) [Mass/Vol] 3.1 g/dL 2.2-4.2 [facility] Serum glucose measurement (m ass/volume)Ordered By: Franklin Díaz on 11-20-2024 Glucose [Mass/Vol] 104 mg/dL High 70-99 [facility] Serum or plasma alanine lamb otransferase (ALT) measurementOrdered By: Franklin Díaz on 11-20-2024 ALT [Catalytic activity/Vol] 15 U/L <35 [facility] Serum or plasma albumin vic urement (mass/volume)Ordered By: Franklin Díaz on 11-20-2024 Albumin [Mass/Vol] 4.1 g/dL 3.4-4.8 [facility] Serum or plasma albumin/glob ulin mass ratioOrdered By: Franklin Díaz on 11-20-2024 Albumin/Globulin [Mass ratio] 1.3 {ratio} 0.9-2.4 [facility] Serum or plasma alkaline mauro sphatase measurementOrdered By: Franklin Díaz on 11-20-2024 ALP [Catalytic activity/Vol] 75 U/L 35-104 [facility] Serum or plasma calcium vic urement (mass/volume)Ordered By: Franklin Díaz on 11-20-2024 Calcium [Mass/Vol] 9.3 mg/dL 7.6-11.0 [facility] Serum or plasma cholesterol in HDL measurement (mass/volume)Ordered By: Franklin Díaz on 11-20-2024 Cholesterol in HDL [Mass/Vol] 55 mg/dL >40 [facility] Comment on above: National Cholesterol Education Program (NCEP) guidelines:<40 mg/dL: Low HDL-cholesterol (major risk factor for CHD)>= 60 mg/dL: High HDL-cholesterol (negative risk factor for CHD)HDL-cholesterol is affected by a number of factors, e.g. smoking, exercise, hormones, sex and age. Serum or plasma cholesterol measurement (mass/volume)Ordered By: Franklin Díaz on 11-20-2024 Cholesterol [Mass/Vol] 183 mg/dL <201 [facility] Comment on above: Cholesterol level, D esirable <200 mg/dLBorderline high cholesterol 200-239 mg/dLHigh cholesterol >=240 mg/dLRecommendations of the NCEP Adult Treatment Panel for the following risk-cutoff thresholds for the [place] population. Serum or plasma urea nitroge n measurement (mass/volume)Ordered By: Franklin Díaz on 11-20-2024 Urea nitrogen [Mass/Vol] 18 mg/dL 4-19 [facility] Sodium levelOrdered By: Franklin Díaz on 11-20-2024 Sodium [Moles/Vol] 141 mmol/L 133-145 [facility] Total proteinOrdered By: Rachel Díaz on 11-20-2024 Protein [Mass/Vol] 7.1 g/dL 5.9-8.4 [facility] Triglycerides measurementOrd ered By: Franklin Díaz on 11-20-2024 Triglyceride [Mass/Vol] 119 mg/dL <199 [facility] Comment on above: The drugs N-Acetylcy steine and Metamizole may falsely depress this assay. Normal range: <150 mg/dLBorderline High: 150-199 mg/dLHigh: 200-499 mg/dLVery High: >500 mg/dL Basic Metabolic Profile (BMP )on 06-15-2024 BUN/CRE 12.1 RATIO Normal 10-20 [facility] Comment on above: Performed By: #### L 500.2500 #### [facility] [address] [place], [place], [id number] CA,Total 9.2 mg/dL Normal 8.5-10.1 [facility] Comment on above: Performed By: #### L 500.2500 #### [facility] [address] [place], [place], [id number] Chloride [Moles/Vol] 108 mmol/L High 98-107 [facility] Comment on above: Performed By: #### L 500.2500 #### [facility] [address] [place], [address] CO2 [Moles/Vol] 27.0 mmol/L Normal 21.0-32.0 [facility] Comment on above: Performed By: #### L 500.2500 #### [facility] [address] [place], [address] Creatinine [Mass/Vol] 1.24 mg/dL High 0.55-1.02 [facility] Comment on above: Result Comment: The validity of the calculated GFR GFRAA in patients over 70 years has not been determined. Clinical correlation is essential. Performed By: #### L 500.2500 #### [facility] [address] [place], [address] EST GFR - AA 53 mL/min Low >60 [facility] Comment on above: Result Comment: Afri can Icelandic GFR Calc Performed By: #### L 500.2500 #### [facility] [address] [place], [address] GAP 5 Normal 5-15 [facility] Comment on above: Performed By: #### L 500.2500 #### [facility] [address] [place], [address] GFR/1.73 sq M.predicted among non-blacks MDRD (S/P/Bld) [Vol rate/Area] 44 mL/min/{1.73_m2} Low >60 [facility] Comment on above: Result Comment: Non- GFR Calc Performed By: #### L 500.2500 #### [facility] [address] [place], [address] Glucose [Mass/Vol] 85 mg/dL Normal 74-106 [facility] Comment on above: Performed By: #### L 500.2500 #### [facility] [address] [place], [address] Potassium [Moles/Vol] 3.8 mmol/L Normal 3.5-5.1 [facility] Comment on above: Performed By: #### L 500.2500 #### [facility] [address] [place], [place], [address] Sodium [Moles/Vol] 140 mmol/L Normal 136-145 [facility] Comment on above: Performed By: #### L 500.2500 #### [facility] [address] [place], [place], [address] Urea nitrogen [Mass/Vol] 15 mg/dL Normal 7-18 [facility] Comment on above: Performed By: #### L 500.2500 #### [facility] [address] [place], [place], [id number] Knee 4 or More Viewson 04-12 Knee 4 or More Views [facility] [address] [place], [place] [address] Knee 4 or More Views MR#: [id number] Acct: [id number] Name: RADHA MALCOLM Rep #: [id number] : [id number] F [id number] From: Hermes Davis MD PCP: Dr. Franklin Díaz MD Status: REG CLI Study: Knee 4 or More Views Date of Exam: 04/12/24 Exam# [id number] Ordering Dr: Franklin Díaz MD [id number] STUDY: X-RAY - LEFT KNEE REASON FOR EXAM: Female, 84 years old. KNEE PAIN TECHNIQUE: 4 views of the left knee. COMPARISON: None. FINDINGS: Normal visualized distal femur. Normal visualized proximal tibia and fibula. Normal proximal tibiofibular articulation. There is no demonstrated fracture. There is mild degenerative arthrosis of the medial femorotibial compartment. There is mild degenerative arthrosis of the lateral femorotibial compartment. There is mild degenerative arthrosis of the patellofemoral articulation. The soft tissue structures are unremarkable. RAD/Knee 4 or More Views IMPRESSION: Mild tricompartment degenerative arthrosis. No demonstrated fracture. Electronically Signed: Hermes Davis MD at 16:05 EST , CC: Dr. Franklin Díaz MD Sewer Pipe Cleaner: Signed Normal [facility] Comprehensive Metabolic Prof ilon 03-15-2024 Albumin [Mass/Vol] 3.4 g/dL Normal 3.2-5.0 [facility] Comment on above: Performed By: #### L 500.4050, L500.4100 #### [facility] [address] [place], [address] Albumin/Globulin [Mass ratio] 0.9 {ratio} Normal 0.9-2.4 [facility] Comment on above: Performed By: #### L 500.4050, L500.4100 #### [facility] [address] [place], [address] ALK P 79 U/L Normal 45-117 [facility] Comment on above: Performed By: #### L 500.4050, L500.4100 #### [facility] [address] [place], [address] ALT [Catalytic activity/Vol] 19 U/L Normal 13-56 [facility] Comment on above: Performed By: #### L 500.4050, L500.4100 #### [facility] [address] [place], [address] AST [Catalytic activity/Vol] 18 U/L Normal 15-37 [facility] Comment on above: Performed By: #### L 500.4050, L500.4100 #### [facility] [address] [place], [address] Bilirubin [Mass/Vol] 0.30 mg/dL Normal 0.20-1.00 [facility] Comment on above: Result Comment: For patients on eltrombopag therapy, use of Dimension [place] TBIL is not recommended. Performed By: #### L 500.4050, L500.4100 #### [facility] [address] [place], [address] BUN/CRE 13.4 RATIO Normal 10-20 [facility] Comment on above: Performed By: #### L 500.4050, L500.4100 #### [facility] [address] [place], [address] CA,Total 9.1 mg/dL Normal 8.5-10.1 [facility] Comment on above: Performed By: #### L 500.4050, L500.4100 #### [facility] [address] [place], [address] Chloride [Moles/Vol] 110 mmol/L High 98-107 [facility] Comment on above: Performed By: #### L 500.4050, L500.4100 #### [facility] [address] [place], [address] CO2 [Moles/Vol] 27.0 mmol/L Normal 21.0-32.0 [facility] Comment on above: Performed By: #### L 500.4050, L500.4100 #### [facility] [address] [place], [address] Creatinine [Mass/Vol] 1.12 mg/dL High 0.55-1.02 [facility] Comment on above: Result Comment: The validity of the calculated GFR GFRAA in patients over 70 years has not been determined. Clinical correlation is essential. Performed By: #### L 500.4050, L500.4100 #### [facility] [address] [place], [address] EST GFR - AA 60 mL/min Normal >60 [facility] Comment on above: Result Comment: Afri can Icelandic GFR Calc Performed By: #### L 500.4050, L500.4100 #### [facility] [address] [place], [address] GAP 5 Normal 5-15 [facility] Comment on above: Performed By: #### L 500.4050, L500.4100 #### [facility] [address] [place], [address] GFR/1.73 sq M.predicted among non-blacks MDRD (S/P/Bld) [Vol rate/Area] 49 mL/min/{1.73_m2} Low >60 [facility] Comment on above: Result Comment: Non- GFR Calc Performed By: #### L 500.4050, L500.4100 #### [facility] [address] [place], [address] Globulin (S) [Mass/Vol] 3.8 g/dL Normal 2.2-4.2 [facility] Comment on above: Performed By: #### L 500.4050, L500.4100 #### [facility] [address] [place], [address] Glucose [Mass/Vol] 90 mg/dL Normal 74-106 [facility] Comment on above: Performed By: #### L 500.4050, L500.4100 #### [facility] [address] [place], [address] Potassium [Moles/Vol] 3.7 mmol/L Normal 3.5-5.1 [facility] Comment on above: Performed By: #### L 500.4050, L500.4100 #### [facility] [address] [place], [address] Sodium [Moles/Vol] 142 mmol/L Normal 136-145 [facility] Comment on above: Performed By: #### L 500.4050, L500.4100 #### [facility] [address] [place], [address] T PROT 7.2 g/dL Normal 6.4-8.2 [facility] Comment on above: Performed By: #### L 500.4050, L500.4100 #### [facility] [address] [place], [address] Urea nitrogen [Mass/Vol] 15 mg/dL Normal 7-18 [facility] Comment on above: Performed By: #### L 500.4050, L500.4100 #### [facility] [address] [place], [address] Lipid Profileon 03-15-2024 Cholesterol [Mass/Vol] 169 mg/dL Normal 200 [facility] Comment on above: Result Comment: <200 mg/dL Desirable 200-240 mg/dL Borderline >240 mg/dL High Risk Performed By: #### L 500.4050, L500.4100 #### [facility] [address] [place], [address] Cholesterol in HDL [Mass/Vol] 62 mg/dL Normal [facility] Comment on above: Result Comment: The drugs N-Acetylcysteine and Metamizole may falsely depress this assay. Reference Range HDL <40 mg/dL Low HDL Cholesterol HDL >or= 60 mg/dL High HDL Cholesterol Performed By: #### L 500.4050, L500.4100 #### [facility] [address] [place], [address] Cholesterol in LDL [Mass/Vol] 82 mg/dL Normal 0-130 [facility] Comment on above: Performed By: #### L 500.4050, L500.4100 #### [facility] [address] [place], [address] Cholesterol in VLDL [Mass/Vol] 25 mg/dL Normal 5-40 [facility] Comment on above: Performed By: #### L 500.4050, L500.4100 #### [facility] [address] [place], [address] Triglyceride [Mass/Vol] 127 mg/dL Normal [facility] Comment on above: Result Comment: The drugs N-Acetylcysteine and Metamizole may falsely depress this assay. Serum Triglycerides Reference Interval Normal <150 mg/dL Borderline high 150 - 199 mg/dL High 200 - 499 mg/dL Very High > or = 500 mg/dL Performed By: #### L 500.4050, L500.4100 #### [facility] [address] [place], [place], [address] Bilirubin Test strip Ql (U)O rdered By: Franklin Díaz on 06-08-2023 Bilirubin Ql (U) Negative Negative [facility] Ketones Test strip Ql (U)Ord ered By: Franklin Díaz on 06-08-2023 Ketones Ql (U) Negative Negative [facility] Nitrite Test strip Ql (U)Ord ered By: Franklin Díaz on 06-08-2023 Nitrite Ql (U) Negative Negative [facility] Protein Test strip Ql (U)Ord ered By: Franklin Díaz on 06-08-2023 Protein Ql (U) Negative Negative [facility] Urine blood detectionOrdered By: Franklin Díaz on 06-08-2023 RBC Ql (U) 25 /ul Negative [facility] Urine clarityOrdered By: Rachel Díaz on 06-08-2023 Clarity (U) Sl. Cloudy Clear [facility] Urine color determinationOrd ered By: Franklin Díaz on 06-08-2023 Color (U) Yellow Yellow [facility] Urine glucose detectionOrder ed By: Franklin Díaz on 06-08-2023 Glucose Ql (U) Normal mg/dl Normal [facility] Urine leukocyte esterase det ection by dipstickOrdered By: Franklin Díaz on 06-08-2023 Leukocyte esterase Test strip Ql (U) 100 /ul Negative [facility] Urine pHOrdered By: Franklin singh on 06-08-2023 pH (U) 5.0 [pH] 5.0 - 8.0 [facility] Urine specific gravity measu rementOrdered By: Franklin Díaz on 06-08-2023 Specific gravity (U) [Rel density] 1.025 1.002-1.03 0 [facility] Urine urobilinogen measureme ntOrdered By: Franklin Díaz on 06-08-2023 Urobilinogen Ql (U) Normal mg/dl Normal [facility] Absolute lymphocyte countOrd ered By: Franklin Díaz on 06-07-2023 Lymphocytes Auto (Unsp spec) [#/Vol] 2.22 10*3/uL 0.83-4.51 [facility] Basophil percentageOrdered B y: Franklin Díaz on 06-07-2023 Basophils/100 WBC (Bld) 0.8 % 0-1 [facility] Chloride [Moles/Vol] 104 mmol/L 98-107 [facility] Eosinophils/100 WBC (Bld) 3.2 % 0-5 [facility] Glucose [Mass/Vol] 87 mg/dL 74-106 [facility] Neutrophils (Bld) [#/Vol] 3.9 10*3/uL 2.0-7.7 [facility] Neutrophils/100 WBC (Bld) 54.2 % 47-70 [facility] Potassium [Moles/Vol] 3.5 mmol/L 3.5-5.1 [facility] Sodium [Moles/Vol] 140 mmol/L 136-145 [facility] WBC (Bld) [#/Vol] 7.2 10*3/uL 4.4-11.0 [facility] Blood erythrocytes count (nu mber/volume)Ordered By: Franklin Díaz on 06-07-2023 RBC (Bld) [#/Vol] 4.24 10*6/uL 4.2-5.4 [facility] Blood hemoglobin measurement (mass/volume)Ordered By: Franklin Díaz on 06-07-2023 Hemoglobin (Bld) [Mass/Vol] 12.0 g/dL 12.0-15.0 [facility] Blood lymphocytes/100 leukoc ytesOrdered By: Franklin Díaz on 06-07-2023 Lymphocytes/100 WBC (Bld) 30.8 % 19-41 [facility] Blood monocytes/100 leukocyt esOrdered By: Franklin Díaz on 06-07-2023 Monocytes/100 WBC (Bld) 10.7 % 0-10 [facility] Blood platelet mean volumeOr dered By: Franklin Díaz on 06-07-2023 Platelet mean volume (Bld) [Entitic vol] 10.1 fL 6.2-12.0 [facility] Determination of erythrocyte mean corpuscular volume (MCV)Ordered By: Franklin Díaz on 06-07-2023 MCV (RBC) [Entitic vol] 89.6 fL 81-99 [facility] Hematocrit Auto (Bld) [Volum e fraction]Ordered By: Franklin Díaz on 06-07-2023 Hematocrit (Bld) [Volume fraction] 38.0 % 37-47 [facility] - Chemistry and C hemistry - challengeOrdered By: Franklin Díaz on 06-07-2023 CO2 [Moles/Vol] 28.0 mmol/L 21.0-32.0 [facility] Urea nitrogen/Creatinine [Mass ratio] 15.8 mg/mg 10-20 [facility] - Hematology and Cell countsOrdered By: Franklin Díaz on 06-07-2023 Erythrocyte distribution width (RBC) [Entitic vol] 44.1 fL 35.1-43.9 [facility] Erythrocyte distribution width (RBC) [Ratio] 13.4 % 11.6-14.6 [facility] Immature granulocytes/100 WBC (Bld) 0.300 % 0.0-0.9 [facility] Comment on above: IG% - Immature Granu locytes (promyelocytes, myelocytes and metamyelocytes) > 1% indicates that a LEFT SHIFT is Present. MCH (RBC) [Entitic mass] 28.3 pg 27.0-32.0 [facility] Nucleated RBC/100 WBC (Bld) [Ratio] 0 % 0-5 [facility] MCHC Auto (RBC) [Mass/Vol]Or dered By: Franklin Díaz on 06-07-2023 MCHC (RBC) [Mass/Vol] 31.6 g/dL 32-36 [facility] No Panel InformationOrdered By: Franklin Díaz on 06-07-2023 Estimated GFR (MDRD) Amer 42 mL/min >60 [facility] Comment on above: GFR Calc Estimated GFR (MDRD) Non-Af Amer 35 mL/min >60 [facility] Comment on above: Non- GFR Calc Platelets bldOrdered By: Rachel Díaz on 06-07-2023 Platelets (Bld) [#/Vol] 419 10*3/uL 150-450 [facility] Serum or plasma calcium vic urement (mass/volume)Ordered By: Franklin Díaz on 06-07-2023 Calcium [Mass/Vol] 9.7 mg/dL 8.5-10.1 [facility] Serum or plasma creatinine m easurement (mass/volume)Ordered By: Franklin Díaz on 06-07-2023 Creatinine [Mass/Vol] 1.52 mg/dL 0.55-1.02 [facility] Comment on above: The validity of the calculated GFR & GFRAA in patients over 70 years has not been determined. Clinical correlation is essential. Serum or plasma urea nitroge n measurement (mass/volume)Ordered By: Franklin Díaz on 06-07-2023 Urea nitrogen [Mass/Vol] 24 mg/dL 7-18 [facility] Thin prep Papanicolaou smear with manual screeningOrdered By: Franklin Díaz on 06-07-2023 Thin prep Papanicolaou smear with manual screening 8 -15 [facility] - Chemistry and C hemistry - challengeOrdered By: Donna Mena on 10-26-2022 Cobalamin (Vitamin B12) [Mass/Vol] 219 pg/mL 211-911 [facility] No Panel InformationOrdered By: Donna Mena on 10-26-2022 Vitamin D 25-Hydroxy 17.9 ng/mL [facility] Comment on above: Vitamin D 25(OH) Sta tus Range Deficiency <20 ng/mL (50nmol/L) Insufficiency 20 - 30 ng/mL (50 - 75 nmol/L) Sufficiency 30 - 100 ng/mL (75 - 250 nmol/L) Toxicity >100 ng/mL (>250 nmol/L) Absolute lymphocyte countOrd ered By: Dr. Díaz on 06-15-2022 Lymphocytes Auto (Unsp spec) [#/Vol] 1.83 10*3/uL 0.83-4.51 [facility] Basophil percentageOrdered B y: Dr. Díaz on 06-15-2022 Basophils/100 WBC (Bld) 1.0 % 0-1 [facility] Chloride [Moles/Vol] 103 mmol/L 98-107 [facility] Eosinophils/100 WBC (Bld) 4.7 % 0-5 [facility] Glucose [Mass/Vol] 92 mg/dL 74-106 [facility] Neutrophils (Bld) [#/Vol] 3.2 10*3/uL 2.0-7.7 [facility] Neutrophils/100 WBC (Bld) 53.6 % 47-70 [facility] Potassium [Moles/Vol] 3.9 mmol/L 3.5-5.1 [facility] Sodium [Moles/Vol] 139 mmol/L 136-145 [facility] WBC (Bld) [#/Vol] 5.9 10*3/uL 4.4-11.0 [facility] Blood erythrocytes count (nu mber/volume)Ordered By: Dr. Díaz on 06-15-2022 RBC (Bld) [#/Vol] 4.21 10*6/uL 4.2-5.4 [facility] Blood hemoglobin measurement (mass/volume)Ordered By: Dr. Díaz on 06-15-2022 Hemoglobin (Bld) [Mass/Vol] 11.0 g/dL 12.0-15.0 [facility] Blood lymphocytes/100 leukoc ytesOrdered By: Dr. Díaz on 06-15-2022 Lymphocytes/100 WBC (Bld) 31.0 % 19-41 [facility] Blood monocytes/100 leukocyt esOrdered By: Dr. Díaz on 06-15-2022 Monocytes/100 WBC (Bld) 9.5 % 0-10 [facility] Blood platelet mean volumeOr dered By: Dr. Díaz on 06-15-2022 Platelet mean volume (Bld) [Entitic vol] 10.2 fL 6.2-12.0 [facility] Determination of erythrocyte mean corpuscular volume (MCV)Ordered By: Dr. Díaz on 06-15-2022 MCV (RBC) [Entitic vol] 84.3 fL 81-99 [facility] Hematocrit Auto (Bld) [Volum e fraction]Ordered By: Dr. Díaz on 06-15-2022 Hematocrit (Bld) [Volume fraction] 35.5 % 37-47 [facility] Iron measurement (mass/mass) Ordered By: Dr. Díaz on 06-15-2022 Iron (Unsp spec) [Mass/Mass] 34 ug/dL 50-170 [facility] - Chemistry and C hemistry - challengeOrdered By: Dr. Díaz on 06-15-2022 CO2 [Moles/Vol] 26.0 mmol/L 21.0-32.0 [facility] Urea nitrogen/Creatinine [Mass ratio] 13.5 mg/mg 10-20 [facility] - Hematology and Cell countsOrdered By: Dr. Díaz on 06-15-2022 Erythrocyte distribution width (RBC) [Entitic vol] 50.8 fL 35.1-43.9 [facility] Erythrocyte distribution width (RBC) [Ratio] 16.3 % 11.6-14.6 [facility] Immature granulocytes/100 WBC (Bld) 0.200 % 0.0-0.9 [facility] Comment on above: IG% - Immature Granu locytes (promyelocytes, myelocytes and metamyelocytes) > 1% indicates that a LEFT SHIFT is Present. MCH (RBC) [Entitic mass] 26.1 pg 27.0-32.0 [facility] Nucleated RBC/100 WBC (Bld) [Ratio] 0 % 0-5 [facility] MCHC Auto (RBC) [Mass/Vol]Or dered By: Dr. Díaz on 06-15-2022 MCHC (RBC) [Mass/Vol] 31.0 g/dL 32-36 [facility] No Panel InformationOrdered By: Dr. Díaz on 06-15-2022 Estimated GFR (MDRD) Amer 61 mL/min >60 [facility] Comment on above: GFR Calc Estimated GFR (MDRD) Non-Af Amer 50 mL/min >60 [facility] Comment on above: Non- GFR Calc Total Iron Binding Capacity 427 ug/dL 250-450 [facility] Platelets bldOrdered By: Dr. Díaz on 06-15-2022 Platelets (Bld) [#/Vol] 393 10*3/uL 150-450 [facility] Serum or plasma calcium vic urement (mass/volume)Ordered By: Dr. Díaz on 06-15-2022 Calcium [Mass/Vol] 9.1 mg/dL 8.5-10.1 [facility] Serum or plasma creatinine m easurement (mass/volume)Ordered By: Dr. Díaz on 06-15-2022 Creatinine [Mass/Vol] 1.11 mg/dL 0.55-1.02 [facility] Comment on above: The validity of the calculated GFR & GFRAA in patients over 70 years has not been determined. Clinical correlation is essential. Serum or plasma iron saturat ion measurement (mass fraction)Ordered By: Dr. Díaz on 06-15-2022 Iron saturation [Mass fraction] 8.0 % 15.0-55.0 [facility] Serum or plasma urea nitroge n measurement (mass/volume)Ordered By: Dr. Díaz on 06-15-2022 Urea nitrogen [Mass/Vol] 15 mg/dL 7-18 [facility] Thin prep Papanicolaou smear with manual screeningOrdered By: Dr. Díaz on 06-15-2022 Thin prep Papanicolaou smear with manual screening 10 5-15 [facility] Absolute lymphocyte counton 03-19-2022 Lymphocytes Auto (Unsp spec) [#/Vol] 1.72 10*3/uL 0.83-4.51 [facility] Work Phone: Basophil percentageon 2021 Basophils/100 WBC (Bld) 1.2 % 0-1 [facility] Work Phone: Eosinophils/100 WBC (Bld) 5.4 % 0-5 [facility] Work Phone: Neutrophils (Bld) [#/Vol] 2.9 10*3/uL 2.0-7.7 [facility] Work Phone: Neutrophils/100 WBC (Bld) 50.6 % 47-70 [facility] Work Phone: WBC (Bld) [#/Vol] 5.7 10*3/uL 4.4-11.0 [facility] Work Phone: Blood erythrocytes count (nu mber/volume)on 03-19-2022 RBC (Bld) [#/Vol] 3.25 10*6/uL 4.2-5.4 [facility] Work Phone: Blood hemoglobin measurement (mass/volume)on 03-19-2022 Hemoglobin (Bld) [Mass/Vol] 8.7 g/dL 12.0-15.0 [facility] Work Phone: [phone] Blood lymphocytes/100 leukoc yteson 03-19-2022 Lymphocytes/100 WBC (Bld) 30.1 % 19-41 [facility] Work Phone: [phone] Blood monocytes/100 leukocyt eson 03-19-2022 Monocytes/100 WBC (Bld) 12.2 % 0-10 [facility] Work Phone: [phone] Blood platelet mean volumeon 03-19-2022 Platelet mean volume (Bld) [Entitic vol] 9.9 fL 6.2-12.0 [facility] Work Phone: [phone] Determination of erythrocyte mean corpuscular volume (MCV)on 03-19-2022 MCV (RBC) [Entitic vol] 85.5 fL 81-99 [facility] Work Phone: [phone] Hematocrit Auto (Bld) [Volum e fraction]on 03-19-2022 Hematocrit (Bld) [Volume fraction] 27.8 % 37-47 [facility] Work Phone: [phone] Laboratory - Hematology and Cell countson 03-19-2022 Erythrocyte distribution width (RBC) [Entitic vol] 51.0 fL 35.1-43.9 [facility] Work Phone: [phone] Erythrocyte distribution width (RBC) [Ratio] 17.1 % 11.6-14.6 [facility] Work Phone: [phone] Immature granulocytes/100 WBC (Bld) 0.500 % 0.0-0.9 [facility] Work Phone: [phone] Comment on above: IG% - Immature Granu locytes (promyelocytes, myelocytes and metamyelocytes) > 1% indicates that a LEFT SHIFT is Present. MCH (RBC) [Entitic mass] 26.8 pg 27.0-32.0 [facility] Work Phone: Nucleated RBC/100 WBC (Bld) [Ratio] 0 % 0-5 [facility] Work Phone: MCHC Auto (RBC) [Mass/Vol]on 03-19-2022 MCHC (RBC) [Mass/Vol] 31.3 g/dL 32-36 [facility] Work Phone: Platelets bldon 03-19-2022 Platelets (Bld) [#/Vol] 446 10*3/uL 150-450 [facility] Work Phone: Absolute lymphocyte counton 03-14-2022 Lymphocytes Auto (Unsp spec) [#/Vol] 2.35 10*3/uL 0.83-4.51 [facility] Work Phone: Basophil percentageon 2021 Basophils/100 WBC (Bld) 1.3 % 0-1 [facility] Work Phone: Bilirubin [Mass/Vol] 0.30 mg/dL 0.20-1.00 [facility] Work Phone: Comment on above: For patients on eltr ombopag therapy, use of Dimension [place] TBIL is not recommended. Chloride [Moles/Vol] 110 mmol/L 98-107 [facility] Work Phone: Eosinophils/100 WBC (Bld) 7.2 % 0-5 [facility] Work Phone: Glucose [Mass/Vol] 92 mg/dL 74-106 [facility] Work Phone: Neutrophils (Bld) [#/Vol] 3.4 10*3/uL 2.0-7.7 [facility] Work Phone: Neutrophils/100 WBC (Bld) 47.7 % 47-70 [facility] Work Phone: Potassium [Moles/Vol] 3.8 mmol/L 3.5-5.1 [facility] Work Phone: Protein [Mass/Vol] 6.2 g/dL 6.4-8.2 [facility] Work Phone: [phone] Sodium [Moles/Vol] 142 mmol/L 136-145 [facility] Work Phone: WBC (Bld) [#/Vol] 7.1 10*3/uL 4.4-11.0 [facility] Work Phone: [phone] Blood erythrocytes count (nu mber/volume)on 03-14-2022 RBC (Bld) [#/Vol] 3.16 10*6/uL 4.2-5.4 [facility] Work Phone: [phone] Blood hemoglobin measurement (mass/volume)on 03-14-2022 Hemoglobin (Bld) [Mass/Vol] 8.1 g/dL 12.0-15.0 [facility] Work Phone: [phone] Blood lymphocytes/100 leukoc yteson 03-14-2022 Lymphocytes/100 WBC (Bld) 33.3 % 19-41 [facility] Work Phone: [phone] Blood monocytes/100 leukocyt eson 03-14-2022 Monocytes/100 WBC (Bld) 10.2 % 0-10 [facility] Work Phone: Blood platelet mean volumeon 03-14-2022 Platelet mean volume (Bld) [Entitic vol] 9.8 fL 6.2-12.0 [facility] Work Phone: Determination of erythrocyte mean corpuscular volume (MCV)on 03-14-2022 MCV (RBC) [Entitic vol] 82.0 fL 81-99 [facility] Work Phone: Hematocrit Auto (Bld) [Volum e fraction]on 03-14-2022 Hematocrit (Bld) [Volume fraction] 25.9 % 37-47 [facility] Work Phone: Laboratory - Chemistry and C hemistry - challengeon 03-14-2022 ALP [Catalytic activity/Vol] 61 U/L 45-117 [facility] Work Phone: [phone] ALT [Catalytic activity/Vol] 21 U/L 13-56 [facility] Work Phone: [phone] CO2 [Moles/Vol] 25.0 mmol/L 21.0-32.0 [facility] Work Phone: [phone] Globulin (S) [Mass/Vol] 3.2 g/dL 2.2-4.2 [facility] Work Phone: [phone] Urea nitrogen/Creatinine [Mass ratio] 17.1 mg/mg 10-20 [facility] Work Phone: [phone] Laboratory - Hematology and Cell countson 03-14-2022 Erythrocyte distribution width (RBC) [Entitic vol] 48.7 fL 35.1-43.9 [facility] Work Phone: [phone] Erythrocyte distribution width (RBC) [Ratio] 16.1 % 11.6-14.6 [facility] Work Phone: [phone] Immature granulocytes/100 WBC (Bld) 0.300 % 0.0-0.9 [facility] Work Phone: [phone] Comment on above: IG% - Immature Granu locytes (promyelocytes, myelocytes and metamyelocytes) > 1% indicates that a LEFT SHIFT is Present. MCH (RBC) [Entitic mass] 25.6 pg 27.0-32.0 [facility] Work Phone: [phone] Nucleated RBC/100 WBC (Bld) [Ratio] 0 % 0-5 [facility] Work Phone: [phone] MCHC Auto (RBC) [Mass/Vol]on 03-14-2022 MCHC (RBC) [Mass/Vol] 31.3 g/dL 32-36 [facility] Work Phone: [phone] Panel Informationon 03-14 Estimated Creatinine Clearance Calc 39.22 ml/min [facility] Work Phone: [phone] Estimated GFR (MDRD) Amer 61 mL/min >60 [facility] Work Phone: [phone] Comment on above: GFR Calc Estimated GFR (MDRD) Non-Af Amer 50 mL/min >60 [facility] Work Phone: Comment on above: Non- GFR Calc Platelets bldon 03-14-2022 Platelets (Bld) [#/Vol] 369 10*3/uL 150-450 [facility] Work Phone: [phone] Serum or plasma albumin vic urement (mass/volume)on 03-14-2022 Albumin [Mass/Vol] 3.0 g/dL 3.2-5.0 [facility] Work Phone: [phone] Serum or plasma albumin/glob ulin mass ratioon 03-14-2022 Albumin/Globulin [Mass ratio] 0.9 {ratio} 0.9-2.4 [facility] Work Phone: [phone] Serum or plasma calcium vic urement (mass/volume)on 03-14-2022 Calcium [Mass/Vol] 8.6 mg/dL 8.5-10.1 [facility] Work Phone: [phone] Serum or plasma creatinine m easurement (mass/volume)on 03-14-2022 Creatinine [Mass/Vol] 1.11 mg/dL 0.55-1.02 [facility] Work Phone: Comment on above: The validity of the calculated GFR & GFRAA in patients over 70 years has not been determined. Clinical correlation is essential. Serum or plasma ferritin tino surement (mass/volume)on 03-14-2022 Ferritin [Mass/Vol] 9 ng/mL 8-252 [facility] Work Phone: [phone] Serum or plasma urea nitroge n measurement (mass/volume)on 03-14-2022 Urea nitrogen [Mass/Vol] 19 mg/dL 7-18 [facility] Work Phone: [phone] Thin prep Papanicolaou smear with manual screeningon 03-14-2022 Thin prep Papanicolaou smear with manual screening 17 U/L 15-37 [facility] Work Phone: [phone] Thin prep Papanicolaou smear with manual screening 7 5-15 [facility] Work Phone: [phone] Basophil percentageon 2021 Cholesterol [Mass/Vol] 146 mg/dL <200 [facility] Work Phone: Comment on above: <200 mg/dL Desirable 200-240 mg/dL Borderline >240 mg/dL High Risk Triglyceride [Mass/Vol] 135 mg/dL <199 [facility] Work Phone: Comment on above: The drugs N-Acetylcy steine and Metamizole may falsely depress this assay.Serum Triglycerides Reference Interval Normal <150 mg/dL Borderline high 150 - 199 mg/dL High 200 - 499 mg/dL Very High > or = 500 mg/dL Glucose Glucometer (BldC) [M ass/Vol]on 03-13-2022 Glucose [Mass/Vol] 104 mg/dL 74-106 [facility] Work Phone: Comment on above: MANAGEMENT OF PATIEN T CARE PER NURSING PROTOCOL Hemoglobin in reticulocytes (mass per reticulocyte)on 03-13-2022 Hemoglobin (Reticulocytes) [Entitic mass] 26.4 pg 30-35 [facility] Work Phone: [phone] Iron measurement (mass/mass) on 03-13-2022 Iron (Unsp spec) [Mass/Mass] 34 ug/dL 50-170 [facility] Work Phone: [phone] Laboratory - Chemistry and C hemistry - challengeon 03-13-2022 Cobalamin (Vitamin B12) [Mass/Vol] 232 pg/mL 211-911 [facility] Work Phone: [phone] Panel Informationon 03-13 Immature Reticulocyte Fraction 18.80 % 3.00-15.90 [facility] Work Phone: [phone] Reticulocyte Count 1.90 % 0.5-1.5 [facility] Work Phone: [phone] Thyroid Stimulating Hormone (TSH) 2.14 uIU/mL 0.358-3.74 [facility] Work Phone: [phone] Total Iron Binding Capacity 380 ug/dL 250-450 [facility] Work Phone: [phone] Serum or plasma cholesterol in HDL measurement (mass/volume)on 03-13-2022 Cholesterol in HDL [Mass/Vol] 52 mg/dL >40 [facility] Work Phone: Comment on above: The drugs N-Acetylcy steine and Metamizole may falsely depress this assay. Reference Range HDL <40 mg/dL Low HDL Cholesterol HDL >or= 60 mg/dL High HDL Cholesterol Serum or plasma cholesterol in VLDL measurement (mass/volume)on 03-13-2022 Cholesterol in VLDL [Mass/Vol] 27 mg/dL 5-40 [facility] Work Phone: Serum or plasma folate measu rement (mass/volume)on 03-13-2022 Folate [Mass/Vol] 11.90 ng/mL 3.1-55.4 [facility] Work Phone: Serum or plasma low density lipoprotein (LDL) cholesterol measurement (mass/volume)on 03-13-2022 Cholesterol in LDL [Mass/Vol] 67 mg/dL 0-130 [facility] Work Phone: Absolute lymphocyte counton 03-12-2022 Lymphocytes Auto (Unsp spec) [#/Vol] 2.11 10*3/uL 0.83-4.51 [facility] Work Phone: Basophil percentageon 2021 Basophil percentage 0-5 SEEN /hpf 0-5 [facility] Work Phone: Basophils/100 WBC (Bld) 0.9 % 0-1 [facility] Work Phone: Bilirubin [Mass/Vol] 0.20 mg/dL 0.20-1.00 [facility] Work Phone: Comment on above: For patients on eltr ombopag therapy, use of Dimension [place] TBIL is not recommended. Chloride [Moles/Vol] 109 mmol/L 98-107 [facility] Work Phone: Eosinophils/100 WBC (Bld) 6.5 % 0-5 [facility] Work Phone: Glucose [Mass/Vol] 123 mg/dL 74-106 [facility] Work Phone: Comment on above: Fasting Glucose resu lt from 100 to 125 mg/dL suggests IMPAIRED HOMEOSTASIS per A.D.A. criteria. Neutrophils (Bld) [#/Vol] 3.2 10*3/uL 2.0-7.7 [facility] Work Phone: Neutrophils/100 WBC (Bld) 50.0 % 47-70 [facility] Work Phone: Potassium [Moles/Vol] 3.5 mmol/L 3.5-5.1 [facility] Work Phone: Protein [Mass/Vol] 7.3 g/dL 6.4-8.2 [facility] Work Phone: Sodium [Moles/Vol] 143 mmol/L 136-145 [facility] Work Phone: WBC (Bld) [#/Vol] 6.5 10*3/uL 4.4-11.0 [facility] Work Phone: Bilirubin Test strip Ql (U)o n 03-12-2022 Bilirubin Ql (U) Negative Negative [facility] Work Phone: Blood erythrocytes count (nu mber/volume)on 03-12-2022 RBC (Bld) [#/Vol] 3.47 10*6/uL 4.2-5.4 [facility] Work Phone: Blood hemoglobin measurement (mass/volume)on 03-12-2022 Hemoglobin (Bld) [Mass/Vol] 8.9 g/dL 12.0-15.0 [facility] Work Phone: Blood lymphocytes/100 leukoc yteson 03-12-2022 Lymphocytes/100 WBC (Bld) 32.7 % 19-41 [facility] Work Phone: Blood monocytes/100 leukocyt eson 03-12-2022 Monocytes/100 WBC (Bld) 9.6 % 0-10 [facility] Work Phone: Blood platelet mean volumeon 03-12-2022 Platelet mean volume (Bld) [Entitic vol] 9.1 fL 6.2-12.0 [facility] Work Phone: Determination of erythrocyte mean corpuscular volume (MCV)on 03-12-2022 MCV (RBC) [Entitic vol] 82.4 fL 81-99 [facility] Work Phone: Hematocrit Auto (Bld) [Volum e fraction]on 03-12-2022 Hematocrit (Bld) [Volume fraction] 28.6 % 37-47 [facility] Work Phone: INR in Blood by Coagulation assayon 03-12-2022 INR Coag (Bld) [Relative time] 1.0 {INR} [facility] Work Phone: Ketones Test strip Ql (U)on 03-12-2022 Ketones Ql (U) Negative Negative [facility] Work Phone: Laboratory - Chemistry and C hemistry - challengeon 03-12-2022 Magnesium [Mass/Vol] 2.2 mg/dL 1.6-2.6 [facility] Work Phone: ALP [Catalytic activity/Vol] 75 U/L 45-117 [facility] Work Phone: ALT [Catalytic activity/Vol] 27 U/L 13-56 [facility] Work Phone: CO2 [Moles/Vol] 27.0 mmol/L 21.0-32.0 [facility] Work Phone: Globulin (S) [Mass/Vol] 3.8 g/dL 2.2-4.2 [facility] Work Phone: Lipase [Catalytic activity/Vol] 247 U/L 73-393 [facility] Work Phone: Urea nitrogen/Creatinine [Mass ratio] 17.7 mg/mg 03-12 [facility] Work Phone: Laboratory - Coagulationon PT Coag (PPP) [Time] 13.0 s 11.7-14.9 [facility] Work Phone: Laboratory - Hematology and Cell countson 03-12-2022 Erythrocyte distribution width (RBC) [Entitic vol] 48.8 fL 35.1-43.9 [facility] Work Phone: [phone] Erythrocyte distribution width (RBC) [Ratio] 16.1 % 11.6-14.6 [facility] Work Phone: [phone] Immature granulocytes/100 WBC (Bld) 0.300 % 0.0-0.9 [facility] Work Phone: [phone] Comment on above: IG% - Immature Granu locytes (promyelocytes, myelocytes and metamyelocytes) > 1% indicates that a LEFT SHIFT is Present. MCH (RBC) [Entitic mass] 25.6 pg 27.0-32.0 [facility] Work Phone: [phone] Nucleated RBC/100 WBC (Bld) [Ratio] 0 % 0-5 [facility] Work Phone: [phone] MCHC Auto (RBC) [Mass/Vol]on 03-12-2022 MCHC (RBC) [Mass/Vol] 31.1 g/dL 32-36 [facility] Work Phone: [phone] Mucus LM Ql (Urine sed)on Mucus Ql (Urine sed) 0 SEEN /hpf [facility] Work Phone: [phone] Nitrite Test strip Ql (U)on 03-12-2022 Nitrite Ql (U) Negative Negative [facility] Work Phone: [phone] No Panel Informationon 03-12 Estimated Creatinine Clearance Calc 35.50 ml/min [facility] Work Phone: [phone] Estimated GFR (MDRD) Amer 53 mL/min >60 [facility] Work Phone: [phone] Comment on above: GFR Calc Estimated GFR (MDRD) Non-Af Amer 44 mL/min >60 [facility] Work Phone: [phone] Comment on above: Non- GFR Calc Troponin I High Sensitivity 6 pg/mL 3.0-54.0 [facility] Work Phone: [phone] Comment on above: Please Note: New Britney t Units and Gender Specific Reference Ranges. For more information see Policy Stat Procedure [place] High Sensitivity Troponin (TNIH) and attachments. Platelets bldon 03-12-2022 Platelets (Bld) [#/Vol] 360 10*3/uL 150-450 [facility] Work Phone: [phone] Protein Test strip Ql (U)on 03-12-2022 Protein Ql (U) Negative Negative [facility] Work Phone: [phone] Serum or plasma albumin vic urement (mass/volume)on 03-12-2022 Albumin [Mass/Vol] 3.5 g/dL 3.2-5.0 [facility] Work Phone: [phone] Serum or plasma albumin/glob ulin mass ratioon 03-12-2022 Albumin/Globulin [Mass ratio] 0.9 {ratio} 0.9-2.4 [facility] Work Phone: Serum or plasma calcium vic urement (mass/volume)on 03-12-2022 Calcium [Mass/Vol] 9.0 mg/dL 8.5-10.1 [facility] Work Phone: Serum or plasma creatinine m easurement (mass/volume)on 03-12-2022 Creatinine [Mass/Vol] 1.24 mg/dL 0.55-1.02 [facility] Work Phone: Comment on above: The validity of the calculated GFR & GFRAA in patients over 70 years has not been determined. Clinical correlation is essential. Serum or plasma urea nitroge n measurement (mass/volume)on 03-12-2022 Urea nitrogen [Mass/Vol] 22 mg/dL 7-18 [facility] Work Phone: [phone] Squamous epithelial cells de tection in urine sediment by light microscopyon 03-12-2022 Epithelial cells.squamous LM Ql (Urine sed) 0-5 SEEN /hpf 5-10 [facility] Work Phone: [phone] Thin prep Papanicolaou smear with manual screeningon 03-12-2022 Thin prep Papanicolaou smear with manual screening 26 U/L 15-37 [facility] Work Phone: [phone] Thin prep Papanicolaou smear with manual screening 7 5-15 [facility] Work Phone: Urine blood detectionon 02-22 RBC Ql (U) 25 /ul Negative [facility] Work Phone: RBC Ql (U) 0-5 SEEN /hpf 0-5 [facility] Work Phone: Urine clarityon 03-12-2022 Clarity (U) Clear Clear [facility] Work Phone: Urine color determinationon 03-12-2022 Color (U) Straw Yellow [facility] Work Phone: Urine glucose detectionon Glucose Ql (U) Normal mg/dl Normal [facility] Work Phone: Urine leukocyte esterase det ection by dipstickon 03-12-2022 Leukocyte esterase Test strip Ql (U) 500 /ul Negative [facility] Work Phone: Urine pHon 03-12-2022 pH (U) 7.0 [pH] 5.0 - 8.0 [facility] Work Phone: Urine sediment bacteria coun t by microscopy (number/high power field)on 03-12-2022 Bacteria LM.HPF (Urine sed) [#/Area] RARE /hpf None Seen [facility] Work Phone: Urine specific gravity measu rementon 03-12-2022 Specific gravity (U) [Rel density] 1.010 1.002-1.03 0 [facility] Work Phone: Urobilinogen Auto test strip Ql (U)on 03-12-2022 Urobilinogen Ql (U) Normal mg/dl Normal [facility] Work Phone: Clinical Summary: HMSPatient IDon 01-26-2020 AOP [facility] Work Phone: Office Visit: New - 1st visi t with practice, Rm: B2on 01-26-2020 NEGATED: Highlighted rowMRI (magnetic resonance imaging) history of the Lumbar Spine on 04/18/2019 at [facility] Work Phone: NEGATED: Highlighted rowTobacco smoking status NHIS Tobacco smoking status NHIS [facility] Work Phone: NEGATED: Highlighted rowxray history of the Lumbar Spine on 12/30/2018 at [facility] Work Phone: Clinical Summary: Scanned Hi story Summaryon 01-22-2020 comments about allergies latex [facility] Work Phone: data entered by patient, Employer Name retired [facility] Work Phone: Data entered by patient, history of past surgeries Cataract surgeryCosmetic surgeryHysterectomyTonsille ctomy [facility] Work Phone: Data entered by patient, medication list bupropion hcl sr-150mg-1 tablet-twice a dayhydroxyzine-hcl 25mg-1 tablet-once a dayhydrochlorothiazide-12.5 mg tb-one tablet-once a dayAsmanex HFA-100 mcg per actuation-two puffs-twice a day [facility] Work Phone: data entered by patient, mother's medical history ArthritisHeart diseaseHigh blood pressureOsteoporosis [facility] Work Phone: data entered by patient, past medical history ArthritisAsthmaHigh blood pressureObstructive sleep apneaOsteopeniaOsteoporosis Sleep apnea [facility] Work Phone: data entered by patient, social history, marital status [facility] Work Phone: Housing Type: apartment, house, mcc, trailer, none house [facility] Work Phone: housing unit size (asthma environmental history, housing) (from single family to don't know) 1 floor [facility] Work Phone: mother of patient is alive or [facility] Work Phone: mother's medical history, comments Parkinson's [facility] Work Phone: Number of dependent children No [facility] Work Phone: Other housed specified and finished basement [facility] Work Phone: Web entered surgical history comments had several treatments on my back but don't know what they were called [facility] Work Phone: ECG 12 Leadon 01-21-2017 Atrial Rate [facility] Work Phone: P [place] [facility] Work Phone: P-R Interval [facility] Work Phone: Q-T Interval [facility] Work Phone: Q-T Interval (corrected) [facility] Work Phone: QRS Duration [facility] Work Phone: QTC Calculation (Bezet) [facility] Work Phone: R [place] [facility] Work Phone: T [place] [facility] Work Phone: Ventricular Rate [facility] Work Phone: POC Potassiumon 01-21-2017 Interpretation and review of laboratory results Normal [facility] Work Phone: Potassium molar conc 3.7 mmol/L 3.5 - 5 .1 mmol/L [facility] Work Phone: ANES Sonido 12-30-2016 ANES POST HNO ID: [id number] thor: Cayetano Bettencourt: AnesthesiologyAuthor Type: AnesthesiologistType: Anesthesia PostOpFiled: 12/30/2016 2:52 PMNote Text:POST ANESTHESIA EVALUATION NOTESERVICE DATE: 12/30/2016SERVICE TIME: 11DOB: 1940Vitals: 12/30/1710Temp: 36.5 ?C (97.7 ?F) 36.9 ?C (98.4 ?F) 12/30/1709BP: 122/63 122/65 131/66 148/65 12/30/1709Pulse: 71 73 75 76 12/30/1709Resp: 16 16 16 16 12/30/1709SpO2: 97% 97% 98% 97%Validated Vital Signs: YesNo apparent anesthetic complications. The patient is appropriatelyhydrated with stable respiratory and cardiovascular status. Patient hassafe and adequate airway control. The patient has appropriate pain reliefand no significant post operative nausea or vomiting. The patient hasachieved baseline mental status.Further assessment by Anesthesia Service: NoneOther Remarks:SIGNATURE: Cayetano Murguia MD PATIENT NAME: Radha MarinATE: December 30, 2016 : 2:51 PM PAGER/CONTACT #: [phone] [facility] PREOPon 12-30-2016 ANE PREOP HNO ID: [id number] thor: Cayetano MurguiaService: AnesthesiologyAuthor Type: AnesthesiologistType: Anesthesia PreOpFiled: 12/30/2016 8:38 AMNote Text: ANESTHESIOLOGY DAY OF SURGERY NOTESERVICE DATE: 12/30/2016SERVICE TIME: 8:38 AMDOB: 1Procedure(s) (LRB):COLONOSCOPY (N/A)Surgeon(s):Phuc PritchettanEsyoan body mass index is 24.16 kg/(m2) as calculated from thefollowing: Height as of 12/18/16: 149.9 cm (4' 11"). Weight as of 12/18/16: 54.3 kg (119 lb 9.6 oz).Most recent hematocrit and potassium results:Hematocrit 36.3 12/18/2016Potassium 3.7 12/18/2016ANES DOS/PREOP NOTE: Vitals:There were no vitals filed for this visit.ACTIVE PROBLEM LISTRosaceaUnspecified Pruritic DisorderOther Chronic Dermatitis Due to Solar RadiationHematuria, UnspecifiedAnemia, UnspecifiedCOGNITIVE DEFICITS MILDCervicalgiaOsteopeniaAn xietyCts (Carpal Tunnel Syndrome)Major Depressive Disorder, Recurrent Episode, Moderate (Hcc)Pain of Left Hip JointEncounter for Screening ColonoscopyHypertensionPAST MEDICAL HISTORYDiagnosis Date- Cataracts, bilateral- Disorder of bone and cartilage, unspecified Left hip- History of hepatitis B at age 20- Hypertension- Internal hemorrhoids without mention of complication- Irritable bowel syndrome- PMH - PAST MEDICAL HISTORY OF 1994 minimal depression/anxietyPAST SURGICAL HISTORYNo date: CATARACT EXTRACTION HX Bilateral08/12/06: COLONOSCOP W/ OR W/O [facility] SPEC08/26/00: SIGMOIDOSCOPY FLEX DIAG Comment: [id number]: TOTAL ABDOM HYSTERECTOMY Comment: fibroids, benignFAMILY HISTORY Heart Mother Comment: PACEMAKER Heart Father Comment: Heart attack Cancer Paternal Grandmother Comment: bladder Heart Paternal Grandfather Comment: heart attack Diabetes Sister Heart Sister 1/2 brother [OTHER] Brother 1/2 sister [OTHER] SisterSocial History:Social HistorySubstance Use Topics- Smoking status: Never Smoker- Smokeless tobacco: Never Used- Alcohol use 4.5 oz/week 3 Glasses of Wine (5oz) per weekNo current facility-administered medications on file prior to encounter.Current Outpatient Prescriptions on File Prior to Encounter:hydroCHLOROthiazi de (HYDRODIURIL, ESIDRIX) 12.5 mg tablet Take 1 tablet bymouth once daily.cholecalciferol (VITAMIN D) 1,000 unit tab tablet Take 1,000 Units bymouth once daily.VIT A/VIT C/VIT E/ZINC/COPPER (OCUVITE PRESERVISION ORAL) Take by mouthonce daily.buPROPion SR (WELLBUTRIN SR) 150 mg 12 hr tablet Take 1 tablet by mouthtwice daily.escitalopram oxalate (LEXAPRO) 10 mg tablet Take 0.5 tablets by mouth oncedaily.cyanocobalamin (VITAMIN B-12) 1,000 mcg Tab Take 1 tablet by mouth oncedaily.ascorbic acid (VITAMIN C) 500 mg tablet Take 1 tablet by mouth once daily.CALCIUM 500 MG TAB Take one(1) tablet three times daily.Current Facility-Administered Medications:NaCl 0.9% iv infusion 30 mL/hr INTRAVENOUS CONTINUOUS Phuc PritchettanAllergies:ALLERGIESA llergen Reactions- Augmentin [Amoxicil* *Penicillins* made mouth very tender- Cozaar [Losartan Po* Intolerance Cough- Effexor [Venlafaxin* bloating, sexual dysfunction- Fosamax [Alendronat* GI Upset- Latex redness, itching- Lexapro [Escitalopr* Decreased Libido, Sexual dysfunction- Lisinopril Cough- Paxil [Paroxetine H* Numb- Prozac [Fluoxetine * Sexual DysfunctionDOS EXAM: Adequate NPO status: YesAnesthetic risks, benefits, alternatives, personnel and consent discussed:YesPatient agrees to proceed: YesPrevious Anesthesia: No history of adverse event.Airway Assessment: MP 2; Neck ROM: Full ROM without neurologic symptoms;Airway Evaluation: No significant abnormalitiesSymptoms of Sleep Apnea: NoneDentition: Teeth intactAdditional Physical Exam:Lungs: Patient health status unchanged since recent history and physical.See history and physical for exam findings.Cardiac: Patient health status unchanged since recent history andphysical. See history and physical for exam findings.Additional Pertinent Findings: N/ABlood Products: Not anticipated for this procedure.Anesthetic Plan: MACPain Management Plan: Parenteral or OralASA Class: 2Other Medical Problems: htnChronic Beta Crystal medication administered within 24 hours: N/AI have interviewed and examined the patient. I have reviewed the medicalrecord and/or the pre-anesthesia evaluation, pertinent labs, and testresults.Significant changes in the patient's condition since the History andPhysical, not otherwise documented in primary service progress notes: NoThis contains updated information obtained within 48 hours ofSurgery/Procedure.SIGNATU RE: Cayetano Murguia MD PATIENT NAME: Radha Queen: December 30, 2016 : 8:38 AM CSN: [id number] [facility] HISTORY PHYSICALon 7 HISTORY PHYSICAL HNO ID: [id number] thor: Phuc PritchettanService: General SurgeryAuthor Type: PhysicianType: HANDPFiled: 12/30/2016 8:53 AMNote Text:PROCEDURAL SEDATION HISTORY AND PHYSICAL EXAMSERVICE DATE: 12/30/2016SERVICE TIME: 8:52 AMSUBJECTIVEHPI: This is a 76 year old female who presents for screening colonoscopyPAST ANESTHESIA HISTORY: No history of adverse eventPAST MEDICAL HISTORYDiagnosis Date- Cataracts, bilateral- Disorder of bone and cartilage, unspecified Left hip- History of hepatitis B at age 20- Hypertension- Internal hemorrhoids without mention of complication- Irritable bowel syndrome- PMH - PAST MEDICAL HISTORY OF 1994 minimal depression/anxietyPAST SURGICAL HISTORYNo date: CATARACT EXTRACTION HX Bilateral08/12/06: COLONOSCOP W/ OR W/O [facility] SPEC08/26/00: SIGMOIDOSCOPY FLEX DIAG Comment: [id number]: TOTAL ABDOM HYSTERECTOMY Comment: fibroids, benignPrior to Admission medications as of 12/30/16 0842Medication Sig Last Dose TakinghydroCHLOROthiazide (HYDRODIURIL, ESIDRIX) 12.5 mg tablet Take 1 tablet bymouth once daily. 12/29/2016 at 1300 YesbuPROPion SR (WELLBUTRIN SR) 150 mg 12 hr tablet Take 1 tablet by mouthtwice daily. 12/29/2016 at 1300 Yesescitalopram oxalate (LEXAPRO) 10 mg tablet Take 0.5 tablets by mouth oncedaily. 12/29/2016 at 1300 YesVITAMIN E, DL,TOCOPHERYL ACET, (VITAMIN E, DL, ACETATE,) 400 unit capsuleTake 400 Units by mouth once daily. one week agocholecalciferol (VITAMIN D) 1,000 unit tab tablet Take 1,000 Units bymouth once daily. one week agoVIT A/VIT C/VIT E/ZINC/COPPER (OCUVITE PRESERVISION ORAL) Take by mouthonce daily. one week agocyanocobalamin (VITAMIN B-12) 1,000 mcg Tab Take 1 tablet by mouth oncedaily. one week agoascorbic acid (VITAMIN C) 500 mg tablet Take 1 tablet by mouth once daily.one week agoCALCIUM 500 MG TAB Take one(1) tablet three times daily. one week agoALLERGIESAllergen Reactions- Augmentin [Amoxicil* *Penicillins* made mouth very tender- Cozaar [Losartan Po* Intolerance Cough- Effexor [Venlafaxin* bloating, sexual dysfunction- Fosamax [Alendronat* GI Upset- Latex redness, itching- Lexapro [Escitalopr* Decreased Libido, Sexual dysfunction- Lisinopril Cough- Paxil [Paroxetine H* Numb- Prozac [Fluoxetine * Sexual DysfunctionOBJECTIVEPHYSICA L EXAM: The remainder of the physical exam is noncontributory.AIRWAY:LUNG S: Lungs clear to auscultation, Good diaphragmatic excursionCARDIAC: Normal S1 and S2; no rubs, murmurs, or gallopsASSESSMENT/PLANASA Class:Principal Problem: Encounter for screening colonoscopy Assessment AND Plan: screening colonoscopyProvisional Diagnosis/Treatment Plan: screening colonoscopySIGNATURE: Phuc Feldman MD PATIENT NAME: Radha Queen: December 30, 2016 : 8:52 AM PAGER: [facility] NURSING PROGon 12-24-2016 NURSING PROG HNO ID: [id number] thor: Whitney (Rn) [place], RNService: (none)Author Type: Registered NurseType: Nursing Progress NoteFiled: 12/24/2016 9:31 AMNote Text:Patient had PACC/ HANDP 12-18-16. No consults ordered in PACC. CBC-diff,CMP, EKG done 12-18-16. Creatinine is slightly elevated- 1.28- BUN normal. Hgb 11.4- Hct is normal. Chart check complete. Whitney Rossi RN [facility] HOSPon 12-03-2016 HOSP Patient:Randi MalcolmMRN: Height:4' 11"(1.499 m)Weight:119 lb 9.6 oz (54.25 kg)Outpatient Medications as of 12/30/16:VITAMIN E, DL,TOCOPHERYL ACET, (VITAMIN E, DL, ACETATE,) 400 unit capsulehydroCHLOROthiazide (HYDRODIURIL, ESIDRIX) 12.5 mg tabletcholecalciferol (VITAMIN D) 1,000 unit tab tabletVIT A/VIT C/VIT E/ZINC/COPPER (OCUVITE PRESERVISION ORAL)buPROPion SR (WELLBUTRIN SR) 150 mg 12 hr tabletescitalopram oxalate (LEXAPRO) 10 mg tabletcyanocobalamin (VITAMIN B-12) 1,000 mcg Tabascorbic acid (VITAMIN C) 500 mg tabletCALCIUM 500 MG TABAdmission/Clinic Administered Medications as of 12/30/16:NaCl 0.9% iv infusionmidazolam (PF) 2 mg injection (VERSED)Problem List:Rosacea [L71.9]Unspecified pruritic disorder [L29.9]Other chronic dermatitis due to solar radiation [L57.8]Hematuria, unspecified [R31.9]Anemia, unspecified [D64.9]COGNITIVE DEFICITS MILD [G31.84]Cervicalgia [M54.2]Osteopenia [M85.80]Anxiety [F41.9]CTS (carpal tunnel syndrome) [G56.00]Major depressive disorder, recurrent episode, moderate (HCC) [F33.1]Pain of left hip joint [M25.552]Encounter for screening colonoscopy [Z12.11]Hypertension [I10]Allergies:Augmentin [Amoxicillin-Pot Clavulanate]Cozaar [Losartan Potassium]Effexor [Venlafaxine Hcl]Fosamax [Alendronate Sodium]LatexLexapro [Escitalopram]LisinoprilPax il [Paroxetine Hcl]Prozac [Fluoxetine Hcl]Date Verified: 12/30/16Lab ValuesLab Value Units Date High LowPOTA* 3.7 mmol/L 12/18/2016 5.1 3.7HEMA* 36.3 % 12/18/2016 46.0 36.0Progress Notes ([facility]):Carlos Dixon 12/09/2016 4:29 PM SignedPatient calls requesting a referral to Dr Hong Humphrey at [facility] [address], [place] [address]. [phone]. She says she needs left corneal and retinal surgery and Dr Florez be performing surgery with Dr Walsh (Nico referral alreadyapproved).TC to Dr Humphrey's office and was given a dx code of T85.22XA. Referral entered.Jessica Hood DO 12/09/2016 4:48 PM SignedThanks, do I need to do anything else with this?Whitney Contreras LPN 12/10/2016 11:36 AM SignedMaybe just a consult .Progress Notes ([facility]):Ashley Garcia RN, RN 12/04/2016 1:53 PM SignedA referral needs sent to a Retinal Specialist A Dr Ramón Walsh @ [facility].Pt was just seen by Opthalmology but insurance needed referral from pcp. . Pt has appt 12/09/16Laurel Vandanaermuhle [employer] 12/04/2016 2:26 PM SignedReferral requires dx. Spoke /c pt, she will contact her opthalmologist and havethem call or fax info to pcp office.Cindy Mccall RN 12/04/2016 2:53 PM SignedPatient reports she is unable to obtain information for referral. Phoned office ([phone]) and confirmed patient does have appt scheduled on12-09-16. Information collected with Dx: T85.22xa, and referral placed.Notified patient.Cindy Mccall RN 12/07/2016 12:[address] Alyson Aljeo office of [facility], appt with , request through prior authorization has been approved and referral hasbeen updated, per Amanda Koroma in prior auth dept. Normal [facility] Culture, urine Bacteria identified Cx Nom (U) Positive [facility] Work Phone: Vital Signs Date Time Vital Sign Value Performing Clinician Facility 03-14-2022 13:32-0400 Body temperature 97.8 [degF] Dr. Franklin Díaz Work Phone: [facility] Work Phone: 03-14-2022 13:32-0400 Diastolic blood pressure 68 mm[Hg] Dr. Franklin Díaz Work Phone: [facility] Work Phone: 03-14-2022 13:32-0400 Heart rate 91 /min Dr. Franklin Díaz Work Phone: [facility] Work Phone: 03-14-2022 13:32-0400 Respiratory rate 14 /min Dr. Franklin Díaz Work Phone: [facility] Work Phone: 03-14-2022 13:32-0400 SaO2% (BldA) [Mass fraction] 99 % Dr. Franklin Díaz Work Phone: [facility] Work Phone: 03-14-2022 13:32-0400 Systolic blood pressure 125 mm[Hg] Dr. Franklin Díaz Work Phone: [facility] Work Phone: 03-14-2022 12:59-0400 Body mass index (BMI) [Ratio] 28.8 kg/m2 Dr. Franklin Díaz Work Phone: [facility] Work Phone: 03-14-2022 11:54-0400 Body height 147.[address] Franklin Díaz Work Phone: [facility] Work Phone: 03-14-2022 11:54-0400 Body weight 62.[address] Franklin Díaz Work Phone: [facility] Work Phone: 03-12-2022 22:43-0400 Inhaled oxygen concentration 21 % Dr. Franklin Díaz Work Phone: [facility] Work Phone: 03-12-2022 18:05-0400 Body temperature 97.8 [degF] [facility] Work Phone: 03-12-2022 18:05-0400 Diastolic blood pressure 89 mm[Hg] [facility] Work Phone: 03-12-2022 18:05-0400 Heart rate 83 /min [facility] Work Phone: 03-12-2022 18:05-0400 Respiratory rate 22 /min [facility] Work Phone: 03-12-2022 18:05-0400 SaO2% (BldA) [Mass fraction] 96 % [facility] Work Phone: 03-12-2022 18:05-0400 Systolic blood pressure 140 mm[Hg] [facility] Work Phone: 03-12-2022 14:36-0400 Body height 147.32 cm [facility] Work Phone: 03-12-2022 14:36-0400 Body mass index (BMI) [Ratio] 29.1 kg/m2 [facility] Work Phone: 03-12-2022 14:36-0400 Body weight 63.2 kg [facility] Work Phone: 01-21-2017 09:15-0400 BMI (Body Mass Index) 23.63 kg/m2 Ashia Patterson [facility] Work Phone: 01-21-2017 09:15-0400 BP Diastolic 77 mm[Hg] Ashia Patterson [facility] Work Phone: 01-21-2017 09:15-0400 BP Systolic 130 mm[Hg] Ashia Patterson [facility] Work Phone: 01-21-2017 09:15-0400 Height 149.9 cm Ashia Patterson [facility] Work Phone: 01-21-2017 09:15-0400 Pulse (Heart Rate) 72 /min Ashia Patterson [facility] Work Phone: 01-21-2017 09:15-0400 Pulse Oximetry 97 % Ashia Patterson [facility] Work Phone: 01-21-2017 09:15-0400 Respiratory Rate 12 /min Ashia Patterson [facility] Work Phone: 01-21-2017 09:15-0400 Weight 53.07 kg Ashia Patterson [facility] Work Phone: NEGATED: Highlighted [id number] 13:50-0400 BMI (Body Mass Index) 27.06 kg/m2 [facility] Work Phone: NEGATED: Highlighted [id number] 13:50-0400 Body weight 58.51 kg Mar [facility] Work Phone: NEGATED: Highlighted [id number] 13:50-0400 Body weight 59 kg Mar Darrian [facility] Work Phone: NEGATED: Highlighted [id number] 13:50-0400 Height 147.32 cm Mar Darrian [facility] Work Phone: NEGATED: Highlighted [id number] 13:50-0400 Height 147 cm Mar Darrian [facility] Work Phone: Encounters Encounter Date Encounter Type Care Provider Facility Start: 11-20-2024 End: 11-20-[address] Franklin Díaz MD Work Phone: -Laboratory [facility] Start: 11-20-2024 End: 11-20-[address] Franklin Díaz MD -[facility] Start: 11-20-2024 End: 11-20-2024 ambulatory Franklin Díaz Facility:[facility] Start: 06-15-2024 End: 06-15-2024 ambulatory Franklin Díaz Facility:[facility] Start: 04-12-2024 End: 04-12-2024 ambulatory Franklin Díaz Facility:[facility] Start: 03-15-2024 End: 03-15-2024 ambulatory Franklin Díaz Facility:[facility] Start: 06-08-2023 End: 06-08-2023 ambulatory [facility] Work Phone: Start: 06-08-2023 End: 06-08-2023 Patient encounter procedure [facility] Start: 06-07-2023 End: 06-07-2023 ambulatory [facility] Work Phone: Start: 06-07-2023 End: 06-07-2023 Patient encounter procedure [facility] Start: 10-26-2022 End: 10-26-2022 ambulatory [facility] Work Phone: Start: 10-26-2022 End: 10-26-2022 Patient encounter procedure [facility] Start: 07-16-2022 End: 07-16-2022 ambulatory [facility] Work Phone: Start: 07-16-2022 End: 07-16-2022 Patient encounter procedure [facility] Start: 06-15-2022 End: 06-15-2022 Patient encounter procedure [facility] Start: 03-19-2022 End: 03-19-[address] Franklin Díaz Work Phone: [facility] Work Phone: Start: 03-19-2022 End: 03-19-[address] Franklin Díaz Work Phone: [facility] Start: 03-14-2022 Non-patient / Non-visit Dr. Roque Díaz Work Phone: [facility] Start: 03-13-2022 End: 03-14-2022 Evaluation and management of inpatient Dr. Franklin Dí[facility] Start: 03-13-2022 Non-patient / Non-visit Dr. Roque Díaz Work Phone: [facility] Start: 03-13-2022 Non-patient / Non-visit Dr. Roque Díaz Work Phone: [facility] Start: 03-12-2022 Non-patient / Non-visit Dr. Roque Díaz Work Phone: [facility] Start: 03-12-2022 Evaluation and management of inpatient [facility] Start: 03-12-2022 observation encounter W [facility] Work Phone: Start: 01-26-2020 End: 01-26-2020 Patient encounter procedure Valente Yee MD Work Phone: [facility] Work Phone: Start: 05-12-2018 Patient encounter procedure Poli Bynumey Facility:[facility] Start: 01-21-2017 Ambulatory ASHIA PRESTONRIQUES [facility] Start: 01-21-2017 End: 01-21-2017 Office outpatient new 30 minutes Ashia Patterson Work Phone: [facility] Comment on above: Pre-operative examin ation (Primary Dx);Dislocated intraocular lens, initial encounter;Essential hypertension;History of hepatitis B Start: 12-30-2016 End: 12-30-2016 Ambulatory [facility] Procedures Date Procedure Procedure Detail Performing Clinician Start: 07-16-2022 Radiography of sacrococcygeal spine Start: 07-16-2022 X-ray of lumbar spin e, two or three views Start: 03-13-[address] Roque Díaz Work Phone: Start: 03-13-2022 Magnetic resonance angiography of head without contrast Dr. Franklin Díaz Work Phone: Start: 03-13-2022 Magnetic resonance angiography of neck without contrast Dr. Franklin Díaz Work Phone: Start: 03-13-2022 MRI of brain without contrast Dr. Franklin Díaz Work Phone: Start: 03-12-2022 Plain chest X-ray Start: 03-12-2022 CT of head without contrast Start: 01-26-2020 End: 01-26-2020 Blood pressure screening [...] Tobacco non-user Valente Yee MD Work Phone: Measurement of occul t blood in stool specimen using immunoassay Urine culture Dr. Franklin Barnes en Work Phone: NEGATED: Highlighted rowStart: 01-26-2020 End: 01-26-2020 Documentation of current medications Mar Colmenares AT Plan of Treatment Date Care Activity Detail Author Start: 03-14-2022 Patient discharge [facility] Work Phone: Start: 03-13-2022 Electrocardiographic procedure [facility] Work Phone: Start: 03-13-2022 Vitamin B12 measurement [facility] Work Phone: Start: 03-13-2022 Admission procedure [facility] Work Phone: Start: 03-13-2022 Procedure discontinued [facility] Work Phone: Start: 03-13-2022 Blood chemistry [facility] Work Phone: Start: 03-13-2022 Inhalation therapy procedure [facility] Work Phone: Start: 03-12-2022 Following clinical pathway protocol [facility] Work Phone: Start: 03-12-2022 Ambulation without limitation [facility] Work Phone: Start: 03-12-2022 Assessment of risk of venous thromboembolism [facility] Work Phone: Start: 03-12-2022 Cardiac monitoring [facility] Work Phone: Start: 03-12-2022 Catheterization of vein [facility] Work Phone: Start: 03-12-2022 Continuous pulse oximetry [facility] Work Phone: Start: 03-12-2022 Elevation of head of bed [facility] Work Phone: Start: 03-12-2022 Exercises [facility] Work Phone: Start: 03-12-2022 Implementation of planned interventions [facility] Work Phone: Start: 03-12-2022 Incentive spirometry [facility] Work Phone: Start: 03-12-2022 Insertion of catheter into peripheral vein [facility] Work Phone: Start: 03-12-2022 Magnetic resonance angiography of head without contrast MRA Head ONLY without Contrast [facility] Work Phone: Start: 03-12-2022 Magnetic resonance angiography of neck without contrast MRA Neck without Contrast [facility] Work Phone: Start: 03-12-2022 Measuring intake and output [facility] Work Phone: Start: 03-12-2022 MRI of brain without contrast Brain without Contrast [facility] Work Phone: Start: 03-12-2022 Notification of physician [facility] Work Phone: Start: 03-12-2022 Oxygen therapy [facility] Work Phone: Start: 03-12-2022 Providing care according to standard [facility] Work Phone: Start: 03-12-2022 Referral to occupational therapist [facility] Work Phone: Start: 03-12-2022 Referral to service [facility] Work Phone: Start: 03-12-2022 Speech therapy assessment [facility] Work Phone: Start: 03-12-2022 Tobacco use cessation education [facility] Work Phone: Start: 03-12-2022 Electrocardiographic procedure [facility] Work Phone: Start: 03-12-2022 End: 03-12-2022 [facility] Work Phone: Start: 03-12-2022 Admission procedure [facility] Work Phone: Start: 01-26-2020 End: 01-26-2020 [facility] Work Phone: Start: 01-22-2017 SEQUENTIAL INFLUENZA VACCINE (#1) SEQUENTIAL INFLUENZA VACCINE (#1) [facility] Work Phone: Start: 2006 PNEUMOCOCCAL VACCINE AGE 65+ (1 of 2 - PCV13) PNEUMOCOCCAL VACCINE AGE 65+ (1 of 2 - PCV13) [facility] Work Phone: Start: 2001 Zoster vaccine hzv live for subcutaneous use ZOSTER VACCINE [facility] Work Phone: Start: 1941 DEXA SCAN [facility] Work Phone: Start: 1940 TETANUS EVERY 10 YR TETANUS EVERY 10 YR [facility] Work Phone: Anion gap measurement [facility] Work Phone: Bacteria identified in Urine by Culture Urine Culture [facility] Work Phone: BUN/Creatinine ratio [facility] Work Phone: Calcium [Mass/volume ] in Serum or Plasma [facility] Work Phone: Carbon dioxide, tota l [Moles/volume] in Serum or Plasma [facility] Work Phone: Chloride [Moles/volu me] in Serum or Plasma [facility] Work Phone: Cholesterol [Mass/vo lume] in Serum or Plasma [facility] Work Phone: Cholesterol in HDL [Mass/volume] in Serum or Plasma [facility] Work Phone: Cholesterol in LDL [Mass/volume] in Serum or Plasma [facility] Work Phone: Creatinine [Moles/vo lume] in Serum or Plasma [facility] Work Phone: Glucose [Mass/volume ] in Serum or Plasma [facility] Work Phone: Hematocrit [Volume F raction] of Blood [facility] Work Phone: Hemoglobin [Mass/vol ume] in Blood [facility] Work Phone: Leukocytes [#/volume] in Blood [facility] Work Phone: Mean corpuscular hem oglobin concentration determination [facility] Work Phone: Mean corpuscular hem oglobin determination [facility] Work Phone: Measurement of renal function [facility] Work Phone: Neutrophil count [facility] Work Phone: Neutrophil percent differential count [facility] Work Phone: Patient Education Anemia [facility] Work Phone: Patient referral [facility] Work Phone: Platelets [#/volume] in Blood [facility] Work Phone: Potassium [Moles/vol ume] in Serum or Plasma [facility] Work Phone: Red blood cell count [facility] Work Phone: Red cell distributio n width determination [facility] Work Phone: Sodium [Moles/volume ] in Serum or Plasma [facility] Work Phone: Triglycerides measurement [facility] Work Phone: Urea nitrogen [Mass/ volume] in Serum or Plasma [facility] Work Phone: Vitamin B12 measurement [facility] Work Phone: VLDL cholesterol measurement [facility] Work Phone: Immunizations Immunization Date Immunization Notes Care Provider [facility] 10-10-2021 Covid ([employer]) Dr. Franklin beckford Work Phone: [facility] 04-14-2021 Covid (Moderna) Dr. Franklin singh Work Phone: [facility] 03-04-2021 Influenza, high dose seasonal Dr. Franklin Díaz MD Work Phone: [facility] 03-04-2021 influenza, high dose seasonal, preservative-free Dr. Franklin Díaz Work Phone: [facility] 07-18-2020 Covid (Moderna) Dr. Franklin singh Work Phone: [facility] 06-20-2020 Covid (Moderna) Dr. Franklin singh Work Phone: [facility] Payers Date Payer Category Payer Medicare [id number] 2024 Medicare [id number] 2024 Self-pay [id number] 2024 Unknown [id number] 2e [id number] 2005 Medicare [id number] Unknown [id number] Unknown [id number] Unknown [id number] Unknown [id number] Social History Date Type Detail Facility Start: 01-21-2017 End: 10-31-2023 Tobacco smoking status MTIS Never smoker [facility] Sex Assigned At Not on file [facility] Work Phone: Start: 03-12-2022 End: 03-14-2022 Tobacco smoking status NHIS Unknown if ever smoked [facility] Start: 1940 Sex Assigned At Female [facility] Start: 03-14-2022 Non-smoker [facility] NEGATED: Highlighted rowStart: 01-26-2020 End: 01-26-2020 Alcohol use Alcohol use [facility] Work Phone: NEGATED: Highlighted rowStart: 01-26-2020 End: 01-26-2020 Details of drug misuse behavior Details of drug misuse behavior [facility] Work Phone: NEGATED: Highlighted rowStart: 01-26-2020 End: 01-26-2020 How many days of moderate to strenuous exercise, like a brisk walk, did you do in the last 7 days? How many days of moderate to strenuous exercise, like a brisk walk, did you do in the last 7 days? [facility] Work Phone: NEGATED: Highlighted rowStart: 01-26-2020 End: 01-26-2020 Assertion Never smoker [facility] Work Phone: Goals Date Patient Goal Desired Activity /State Functional Status Date Assessment Result Facility 03-14-2022 Functional status Ambulates;Reji r;Bathroom Privilege [facility] Work Phone: Mental Status Date Assessment Result Facility 03-14-2022 Cognitive function Voice/Name [facility] Work Phone: 03-12-2022 Cognitive function Level Of Cons ciousness Awake;Alert;Appropriate;Follow s Commands [facility] Work Phone: Evaluation note Note Date & Type Note Facility Evaluation note No assessment information availa ble [facility] Work Phone: Evaluation note Note Date & Type Note Facility Evaluation note Diagnosis Onset Date Anemia acute Dizziness acute Medication reaction acute TIA (transient ischemic attack) acute [facility] Work Phone: Evaluation note Note Date & Type Note Facility Evaluation note Diagnosis Onset Date Anemia acute [facility] Work Phone: Reason for referral (narrative) Note Date & Type Note Facility Reason for referral (narrative) No reason for referral information available [facility] Work Phone: Summary Purpose Family History No Family History Records FoundNo Family History Records FoundNo Family History Records FoundThere may be information available, but it has not been provided by the sender.No Family History Records Found Advance Directives No Advanced Directives Records Found Advance Directive Response Recorded Date/ Time Living Will Yes March 12 3:28pm Power of Director Of Neurology Yes March 12, 2022 3:28pm Name of Medical Power of Director Of Neurology . March 12, 2022 3:28pm Advance Directive Response Recorded Date/ Time Name of Medical Power of Director Of Neurology archie shaw March 12, 2022 7:27pm Living Will Yes March 12 7:27pm Power of Director Of Neurology Yes March 12, 2022 7:27pm Advance Directive Response Recorded Date/ Time Living Will Yes March 12 6:27pm Power of Director Of Neurology Yes March 12, 2022 6:27pm Advance Directive Response Recorded Date/ Time Living Will Yes March 12 7:27pm Power of Director Of Neurology Yes March 12, 2022 7:27pm Reason for Referral Status Reason Specialty Diagnoses / Procedures Referred By Contact Referred To Contact Pending Review Primary Care Diagnoses Pre-op evaluation Nikita Walsh MD [address] [place] [address] [facility] [address] [place] [address] History of Present Illness * Ashia Patterson MD - 01/21/2017 9:35 AM EDT Formatting [...] Q-T Interval (corrected) QTC Calculation (Bezet) P [place] R [place] T [place] IMPRESSION/PLAN: 77 yr WF presents for preop [...] not been provided by the sender. Assessments Diagnosis Pre-operative examination - Primary Unspecified pre-operative [...] has not been provided by the sender. Chief Complaint and Reason for Visit Chief Complaint TIA Chief Complaint TIA (cardiology) TIA (cardiology) Altered mental status Altered mental status Reason for Visit Anemia Dizziness Medication reaction TIA (transient ischemic attack) Chief Complaint TIA (cardiology) TIA (cardiology) TIA Altered mental status Reason for Visit Anemia Chief Complaint BACK PAIN Chief Complaint BACK PAIN EORDER Additional Source Comments INFORMATION SOURCE (unrecogn ized section and content) DATE CREATED AUTHOR 11/17/2017 [facility] DATE CREATED AUTHOR AUTHOR'S ORGANIZ ATION 11/17/2017 [facility] DATE CREATED AUTHOR AUTHOR'S ORGANIZ ATION 05/14/2018 [facility] DATE CREATED AUTHOR AUTHOR'S ORGANIZ ATION 11/24/2024 [facility] Reason for Visit (unrecogniz ed section and content) Reason Comments Perioperative Medical Evaluation displac ement of intraocular lens intial encounter Status Reason Specialty Diagnoses / Procedures Referred By Contact Referred To Contact Pending Review Primary Care Diagnoses Pre-op evaluation Nikita Walsh MD [address] [place] [address] [facility] [address] [place] [address] Reason For Visit Description Start Date New - 1st visit with practice Preliminary reason f or visit data, not yet signed by the author as of lower back pain Goals (unrecognized section and content) Goals may be documented in a n alternate sectionGoals may be documented in an alternate sectionGoals may be documented in an alternate sectionGoals may be documented in an alternate sectionGoals may be documented in an alternate sectionGoals may be documented in an alternate section Care Teams (unrecognized sec tion and content) Team Status: Active Member Role Status Dates Dr. Franklin Díaz MD Family Provider Active Dr. Franklin Díaz MD Primary Care Provider Active Team Status: Inactive Member Role Status Dates Dr. Franklin Díaz MD Primary Care Provider, Attending Provider Active Team Status: Inactive Member Role Status Dates Dr. Franklin Díaz MD Primary Care Provider Active Dr. Khalif Grove MD Attending Provider, Referring Provider Active Team Status: Inactive Member Role Status Dates Dr. Franklin Díaz MD Primary Care Provider Active MARTA ColeC Attending Provider, Referring Pr ovider Active Team Status: Active Member Role Status Dates Dr. Franklin Díaz MD Primary Care Provider, Attending Provider Active Team Status: Active Member Role/Relationship Status Dates Dr. Franklin Díaz MD Family Provider Active Dr. Franklin Díaz MD Primary Care Provider Active Team Status: Inactive Member Role/Relationship Status Dates Dr. Franklin Díaz MD Primary Care Provider Active Start: November 20, 2024 End: November 20, 2024 Dr. Franklin Díaz MD Attending Provider Active Start: November 20, 2024 End: November 20, 2024 Dr. Franklin Díaz MD Referring Provider Active Start: November 20, 2024 End: November 20, 2024 FOR RECORDS PERTAINING TO PATIENTS WHO ARE [...] BE BASED ON THE PRIMARY CLINICAL RECORDS. [employer] provides no warranty or guarantee of the accuracy or completeness of information in this document.
--- NOTE | 2025-04-21 13:01 | EDS_ITS ---
HPI History of Present Illness Chief Complaint: Laceration Narrative Narrative: Patient is a 85-year-old female presenting to the emergency department for a left knee injury. Patient was walking up a few steps outside when she missed the step causing her to fall forward landing on her left knee. She denies hitting her head or any loss of consciousness. She is not on any oral anticoagulation. She denies any other injuries other than her left knee. She states that she noticed bleeding through her pants and then looked at her leg and saw a cut which is why she is here. She is unsure when her last tetanus vaccine was. She did not take anything for pain prior to arrival. States she purely tripped on the step and did not have any symptoms causing her to fall including chest pain, shortness of breath, palpitations, dizziness or lightheadedness. Denies neck pain or back pain. [facility] Medical History Medication reaction Dizziness Hearing loss, left Hearing loss, right Anxiety Depression Chronic pain Osteoporosis Hepatitis Non-smoker Asthma History of frequent urinary tract infections Hyperlipidemia Hypertension Home Medications Medication Instructions Recorded Last Taken Type hydrochlorothiazide 12.5 mg capsule 12.5 mg PO DAILY B LOOD PRESSURE 06/10/18 03/12/22 History bupropion HCl 300 mg 24 hr tablet, 300 mg PO DAILY [facility] 03/12/22 03/12/22 History extended release kgxakebhdlyb-Qj-rzpv-minerals 27 1 tab PO DAILY SUPPLE MENT 03/12/22 03/11/22 History mg-0.4 mg tablet aspirin 81 mg chewable tablet 81 mg PO BREAKFAST 30 da ys #30 tabs 03/14/22 Unknown Rx ondansetron 4 mg disintegrating 4 mg PO Q8H PRN PRN Na usea #10 tabs 10/31/23 Unk nown Rx
--- NOTE | 2025-04-21 13:01 | EX.ED.GENINJ ---
HPI History of Present Illness Chief Complaint: Laceration Narrative Narrative: Patient is a 85-year-old female presenting to the emergency department for a left knee injury. Patient was walking up a few steps outside when she missed the step causing her to fall forward landing on her left knee. She denies hitting her head or any loss of consciousness. She is not on any oral anticoagulation. She denies any other injuries other than her left knee. She states that she noticed bleeding through her pants and then looked at her leg and saw a cut which is why she is here. She is unsure when her last tetanus vaccine was. She did not take anything for pain prior to arrival. States she purely tripped on the step and did not have any symptoms causing her to fall including chest pain, shortness of breath, palpitations, dizziness or lightheadedness. Denies neck pain or back pain. [facility] Medical History Medication reaction Dizziness Hearing loss, left Hearing loss, right Anxiety Depression Chronic pain Osteoporosis Hepatitis Non-smoker Asthma History of frequent urinary tract infections Hyperlipidemia Hypertension Home Medications Medication Instructions Recorded Last Taken Type hydrochlorothiazide 12.5 mg capsule 12.5 mg PO DAILY BLOOD PRESSURE 06/10/18 03/12/22 History bupropion HCl 300 mg 24 hr tablet, 300 mg PO DAILY mental health 03/12/22 03/12/22 History extended release hjvygsediktf-Lr-wnwn-minerals 27 1 tab PO DAILY SUPPLEMENT 03/12/22 03/11/22 History mg-0.4 mg tablet aspirin 81 mg chewable tablet 81 mg PO BREAKFAST 30 days #30 tabs 03/14/22 Unknown Rx ondansetron 4 mg disintegrating 4 mg PO Q8H PRN PRN Nausea #10 tabs 10/31/23 Unknown Rx tablet Allergy/AdvReac Type Severity Reaction Status Date / Time alendronate sodium (From Allergy GI UPSET Verified 04/21/25 12:20 Fosamax) amoxicillin (From Augmentin) Allergy MADE MOUTH Verified 04/21/25 12:20 VERY TENDER clavulanic acid (From Allergy MADE MOUTH Verified 04/21/25 12:20 Augmentin) VERY TENDER escitalopram (From Lexapro) Allergy DECREASED Verified 04/21/25 12:20 LIBIDO, SEXUAL DYSFUNCTION fluoxetine (From Prozac) Allergy SEXUAL Verified 04/21/25 12:20 DYSFUNCTION latex Allergy Rash Verified 04/21/25 12:20 lisinopril Allergy COUGH Verified 04/21/25 12:20 paroxetine (From Paxil) Allergy NUMB Verified 04/21/25 12:20 venlafaxine (From Effexor) Allergy BLOATING, Verified 04/21/25 12:20 SEXUAL DYSFUNCTION Family History no significant family his Surgical History History of tonsillectomy History of appendectomy History of hysterectomy Social History Smoking Status: Never smoker ROS ROS ED ROS Narrative See HPI EXAM Physical Exam Narrative Exam Narrative: Vital signs: Reviewed General: Alert and oriented x 3. No acute distress. Well-appearing, nontoxic. HEENT: Head is normocephalic and atraumatic. No cephalhematoma, lacerations or abrasions to the head or face. Sinuses nontender, pupils equal round and reactive. Extraocular movements intact. Nares are patent. No septal hematoma. Oropharynx and throat exams normal. No oropharyngeal trauma. Neck: Supple without lymphadenopathy nontender. No midline cervical spinal tenderness to palpation. No step-offs or deformities. Cardiovascular: Regular rate and rhythm, no murmurs. No rubs or gallops. Normal S1 and S2 Respiratory: Clear to auscultation bilaterally. No wheezes, rales, rhonchi Chest: Chest wall is atraumatic and nontender to palpation. No crepitus, erythema or ecchymosis. Abdominal: Soft and nontender. Normal bowel sounds. No guarding or rebound. Nonsurgical abdomen Extremities: Hips are stable and nontender to palpation. No midline thoracic or lumbar spinal tenderness to palpation. Upper extremities are atraumatic and nontender to palpation with normal active ROM. There is ecchymosis to the left knee with swelling. Overlying 5 cm linear horizontal laceration involving skin and subcutaneous tissue to the anterior knee. No exposed bone. There is mild tenderness to palpation of the proximal tib-fib right beneath the knee. No tenderness to palpation of the midshaft or distal tib-fib, ankle or foot. DP and PT pulses intact. Sensation intact. Patient able to flex and extend at the knee without difficulty. Neurological: Cranial nerves II through XII are grossly intact. Normal strength and sensation. Normal cerebellar function The rest of the physical exam is unremarkable Const Vital Signs: 04/21/25 12:20 04/21/25 14:18 04/21/25 15:11 Temperature 96.5 F L 96.5 F L Temperature Source Temporal Pulse Rate 94 70 70 Respiratory Rate 18 16 16 Blood Pressure 130/98 H 136/43 H 136/43 H Blood Pressure Mean 108 74 74 Pulse Ox 94 94 Oxygen Delivery Method Room Air MDM MDM MDM Narrative Medical decision making narrative: Patient is a 85-year-old female presenting to the emergency department for a mechanical fall with a left knee injury. Patient was seen and examined. Vitals are stable. Patient resting in bed comfortably no acute distress. Patient was given Tylenol for pain control. Tetanus vaccine was updated. Will obtain x-ray imaging of the knee and tib-fib. She did not hit her head or have any loss of consciousness, neuro intact, no neck or back pain. Not think a CT of the brain or cervical spine is indicated. States it was a mechanical fall tripping on a step I do not think she needs any labs to assess for any cause of the call. Wound was copiously irrigated by myself. 2% lidocaine with epi was used to anesthetize the area. 9 4.0 Ethilon suture were placed in a simple interrupted pattern. Patient tolerated well. Dressing was applied. X-rays were reviewed by myself and show no evidence of fracture or dislocation. Patient was given wound care instructions. Able to ambulate without difficulty. Patient discharged from the Emergency Department. I do not feel that the patient's evaluation reveals any acute reason for admission at this time. I instructed them to either follow-up with their primary care physician or promptly return to the Emergency Department for reevaluation should symptoms worsen or new symptoms develop. I explained what symptoms would indicate the need to return to the emergency department. Shared decision making was used. The patient voiced understanding of the treatment plan and is agreeable with it. Clinical impression Mechanical fall Knee laceration Knee contusion History & Record Review Discussion w/independent historian: Patient and Significant other Radiography X-Ray: Read by ED Physician and No Fracture Diagnostic Testing: Clinical Impression(s) from Imaging Studies Knee X-Ray 04/21/25 12:27 IMPRESSION: Skin defect is noted at the superior border level of the patella likely representing described laceration. No radiopaque foreign body. No acute osseous abnormality. Reading Location: [facility] Tibia/Fibula X-Ray 04/21/25 12:27 IMPRESSION: NEGATIVE TIBIA AND FIBULA Reading Location: [facility] Discharge Plan Triage Chief Complaint: Laceration Other Complaint: Lower Extremity Injury ED Provider: Tanisha Reyes Dx/Rx/DC Orders Clinical Impression: Fall, Knee laceration, Contusion of knee Instructions: ED Contusion, Lower Extremity, ED Laceration Extremity, ED Fall Prevention Prescriptions: No Action hydrochlorothiazide 12.5 mg capsule 12.5 mg PO DAILY kuwfjukctmim-Ep-jhlj-minerals 27-0.4 mg Tablet 1 tab PO DAILY bupropion HCl 300 mg tablet extended release 24 hr 300 mg PO DAILY Patient Comments: Take one tablet by mouth once daily aspirin 81 mg Tablet,Chewable 81 mg PO BREAKFAST 30 Days Qty: 30 0RF ondansetron 4 mg tablet,disintegrating 4 mg PO Q8H PRN PRN (Reason: Nausea) Qty: 10 0RF Primary Care Provider: Franklin Díaz Referrals: Franklin Díaz MD [Primary Care Provider, Family Practice] - As soon as possible Activity Restrictions/Additional Instructions: You need to follow-up in 7 days to have the sutures removed. Please keep the wound clean and dry. Watch for signs of infection which include redness, drainage or warmth. For your knee injury you can rest, ice, apply compression and elevate to help with pain and swelling. You can take Motrin and Tylenol for pain control. Your evaluation in the Emergency Department did not reveal any acute reason for admission. However, I want to emphasize that you may be early in the course of a disease process or illness even if it is not present. For this reason you should follow-up within 24 hours for reevaluation with either your primary care physician or if necessary back here in the Emergency Department. You should return to the Emergency Department immediately if your symptoms worsen or new symptoms develop. Print Language: Norwegian Disposition Disposition: Home, Self Care Discharge Date/Time: 04/21/25 15:11
[2025-04-21 14:18] VITALS: BP 136/43; PULSE 70; RESP 16
[2025-04-21 15:11] VITALS: BP 136/43; PULSE 70; RESP 16; TEMP 35.8; O2SAT 94
== END 2025-04-21 15:11 | disposition home or self-care (01) ==
PROVIDERS: Emergency Provider Student in an Organized Health Care Education/Training Program; PCP Family Medicine; Visit Provider Student in an Organized Health Care Education/Training Program
DX: S81.012A Laceration without foreign body, left knee, initial encounter (principal); S80.02XA Contusion of left knee, initial encounter; W10.9XXA Fall (on) (from) unspecified stairs and steps, initial encounter
CPT/HCPCS: 12002; 73560; 73590; 90715; 96372; 99284